=== PATIENT | female | born 1930 | race African-American/Black ===

== ENCOUNTER 2017-02-18 13:35 | Inpatient (IN) | payer MEDICARE ==
[~2017-02-18] VITALS: Ht 157.5 cm; Wt 88.9 kg
[~2017-02-18 13:35] MED LIST: ALPR.25 PO; AMLO5TAB96 PO; ASPI81 PO; CALTCHW4 PO; CENTTAB9 PO; CEPH500C3 PO; ESTR.3 PO; SYNT137T PO; TOPR100T15 PO; ZOFR4TAB3 SL
[2017-02-18 13:51] VITALS: BP 186/89; PULSE 104; RESP 18; TEMP 99.2; O2SAT 100
[2017-02-18] MEDS ORDERED: HALOPERIDOL LACTATE 5 MG/ML AMP IM ONE (14:00)
--- NOTE | 2017-02-18 14:10 | PD ---
HPI Chief Complaint: Altered Mental Status Time Seen by Provider: 13:40 Travel History International Travel<30 days: No Contact w/Intl Traveler<30days: No Traveled to known affect area: No History of Present Illness HPI This is an 86-year-old female with a history of hypertension, hypothyroidism, dementia, who presents here via EMS after her family members called stating that there are no longer able to control her. The patient has a history of dementia and it is progressing to the point now where she is out of control and they cannot take care of her. There are no other planes. The patient is unable to give any history as she is severely demented. PFSH Past Medical History Diminished Hearing: No Hypertension: Yes Musculoskeletal: Yes Thyroid Disease: Yes Menopausal: Yes Past Surgical History Cholecystectomy: Yes Hysterectomy: Yes Joint Replacement: Yes ([place]NE[place]) Social History Alcohol Use: No Tobacco Use: No Substance Use: No Allergies-Medications (Allergen,Severity, Reaction): Coded Allergies: acetaminophen (Unverified Allergy, Severe, 02/18/17) doxycycline (Unverified Allergy, Severe, 02/18/17) hydrocodone (Unverified Allergy, Severe, 02/18/17) minocycline (Unverified Allergy, Severe, 02/18/17) tigecycline (Unverified Allergy, Severe, 02/18/17) Reported Meds & Prescriptions Reported Meds & Active Scripts Active Zofran ODT (Ondansetron HCl) 4 Mg Tab 4 Mg SL Q6H PRN FOR NAUSEA/VOMITING Reported Xanax 0.25 Mg (Alprazolam) Alprazolam 0.25 mg Tab 1 Tab PO Q8 PRN Toprol XL (Metoprolol Succinate) 100 Mg [place] 1 Tab PO DAILY Keflex (Cephalexin Monohydrate) 500 Mg Cap 500 Mg PO Q8 Caltrate 600+D (Calcium Carbonate/Cholecalciferol) 600 Mg-800 Chw 1 Tab PO DAILY Norvasc (Amlodipine Besylate) 5 Mg Tab 10 Mg PO DAILY Centrum (Multivitamins) Tab 1 Tab PO DAILY Aspirin 81 Mg Tab 81 Mg PO DAILY Synthroid 137 mcg (Levothyroxine Sodium) 137 Mcg Tab 150 Mcg PO DAILY Premarin (Estrogens Conjugated) 0.3 Mg Tab 0.3 Mg PO DAILY Review of Systems ROS Limitations: Clinical Condition (history of dementia and unable to give any history of review of systems), Uncooperative, Poor Historian Except as stated in HPI: all other systems reviewed are Neg Physical Exam Narrative GENERAL: Well-developed well-nourished female in no acute rest her distress. SKIN: Focused skin assessment warm/dry. HEAD: Atraumatic. Normocephalic. EYES: No scleral icterus. No injection or drainage. ENT: No nasal bleeding or discharge. Mucous membranes pink and moist. NECK: Trachea midline. Supple. CARDIOVASCULAR: Regular rate and rhythm. No murmur appreciated. RESPIRATORY: No accessory muscle use. Clear to auscultation. Breath sounds equal bilaterally. GASTROINTESTINAL: Abdomen soft, non-tender, nondistended. MUSCULOSKELETAL: No obvious deformities. No clubbing. No cyanosis. No edema. NEUROLOGICAL: Awake and demented. No obvious cranial nerve deficits. Motor grossly within normal limits. Normal speech. Data Data Last Documented VS Vital Signs Date Time Temp Pulse Resp B/P (MAP) Pulse Ox O2 Delivery O2 Flow Rate FiO2 02/18/17 13:51 99.2 104 18 186/89 (121) 100 Room Air Orders Orders Comprehensive Metabolic Panel (02/18/17 13:56) Thyroid Stimulating Hormone (02/18/17 13:56) Urinalysis - C+S If Indicated (02/18/17 13:56) Oximetry (02/18/17 13:56) Iv Access Insert/Monitor (02/18/17 13:56) Ecg Monitoring (02/18/17 13:56) Psych Screen (02/18/17 13:56) Haloperidol Inj (Haldol Inj) (02/18/17 14:00) Lorazepam Inj (Ativan Inj) (02/18/17 14:45) Ziprasidone Inj (Geodon Inj) (02/18/17 14:47) Lorazepam Inj (Ativan Inj) (02/18/17 15:00) Ziprasidone Inj (Geodon Inj) (02/18/17 15:00) Admit Order (Ed Use Only) (02/18/17 15:50) [facility] Medical Decision Making Medical Screen Exam Complete: Yes Emergency Medical Condition: Yes Differential Diagnosis Worsening dementia versus metabolic arrangement versus UTI versus pneumonia Narrative Course This is an 86-year-old female sent in by her family via [facility] for evaluation for her worsening dementia. Patient is become increasingly agitated and unable to manage at home. Family is concerned that she may hurt herself. The patient is refusing labs at this time. She'll be put in [facility]. She is medically clear for psychiatry evaluation. Diagnosis Primary Impression: Alzheimer's dementia with behavioral disturbance Additional Impression: medically clear Pedro Lion MD Feb 18, 2017 14:10
[2017-02-18] MEDS ORDERED: LORazepam 2 MG/ML VIAL ONE (14:45)
[2017-02-18] MEDS ORDERED: ZIPRASIDONE MESYLATE 20 MG VIAL IM ONE ×2 (14:47→15:00)
[2017-02-18] MEDS ORDERED: LORazepam 2 MG/ML VIAL IM ONE (15:00)
[2017-02-18] MEDS ORDERED: ALUMINUM/MAGNESIUM/SIMETH 30 ML CUP PO PRN (16:00)
[2017-02-18] MEDS: ESTROGENS CONJUGATED 0.3 MG TAB PO SCH (16:00)
[2017-02-18] MEDS ORDERED: ACETAMINOPHEN 325 MG TAB PO PRN (16:00)
[2017-02-18] MEDS: ASPIRIN 81 MG CHEW TAB PO SCH (16:00)
[2017-02-18] MEDS ORDERED: TOPROL PO SCH (16:00)
[2017-02-18] MEDS ORDERED: MAGNESIUM HYDROXIDE SUSP 30 ML CUP PO PRN (16:00)
[2017-02-18] MEDS ORDERED: ONDANSETRON ODT 4 MG TAB SL PRN (16:00)
--- NOTE | 2017-02-18 16:10 | HHI.HP ---
Provisional Diagnosis Admission Date [place] I. Dementia with behavioral disturbance. Certification of Person's Competence To Provide Express and Informed Consent I have personally examined Natalie Rooney , a person being served at [facility] on, Feb 18, 2017 15:58. Express and informed consent means consent voluntarily given in writing, by a competent person, after sufficient explanation and disclosure of the subject matter involved to enable the person to make a knowing and willful decision without any element of force, fraud, deceit, duress, or other form of constraint or coercion. This person is 18 years of age or older, is not now known to be incompetent to consent to treatment with a guardian advocate, and does not have a health care surrogate or proxy currently making medical treatment decisions. I have found this person to be one of the following: [] Competent to provide express and informed consent, as defined above, for voluntary admission to this facility and is competent to provide express and informed consent for treatment. He/she has the consistent capacity to make well reasoned, willful, and knowing decisions concerning his or her medical or mental health treatment. The person fully and consistently understands the purpose of the admission for examination/placement and is fully capable of personally exercising all rights [place] [x] Incompetent to provide express and informed consent to voluntary admission, and this is incompetent to provide express and informed consent to treatment. The person must be transferred to involuntary status and a petition for a guardian advocate filed with the Circuit Court. [] Refusing to provide express and informed consent to voluntary admission but is competent to provide express and informed consent for treatment. The person must be discharged or transferred to involuntary status. Form shall be completed within 24 hours of a person's arrival at the receiving facility and filed in the clinical record of each person: 1. Admitted on a voluntary basis 2. Permitted to provide express and informed consent to his/her own treatment 3. Allowed to transfer from involuntary to voluntary status 4. Prior to permitting a person to consent to his or her own treatment after having been previously found incompetent to consent to treatment. History of Present Illness Capacity: Lacks Capacity HPI 86-year-old female with history of dementia, brought in by EMS after being called to family residence. Dr. Lion, he emergency department attending physician [place] acted the patient because she is obviously significantly demented, obviously unable to care for herself, oppositional and irritable to the point of fighting with family and medical staff. Patient remains a poor historian although she will speak to medical staff and this physician. She is clearly feeling persecuted by the medical staff at this hospital. She does not understand her need for evaluation and care and makes comments that both her family and our medical staff are trying to harm her in some way and take her money. She is noted to have a history of hypertension and hypothyroidism, yet declines the medicines used to treat both of these conditions, repeatedly stating she is "fine". At one point she became so highly agitated with the staff in [facility] pod psychiatry, she required injectable medicines of 10 mg Geodon and 1 mg Ativan. Patient was not physically cooperative and instead attempting to fight with our staff. As a result, she had to be held in order for these medicines to be given. This physician however did not order restraints as it was felt the patient could harm herself more if she were continuously restrained. She does make multiple nonsensical remarks and the information provided is not cogent, logical or explanatory. She is disoriented to place, time and situation. She does not feel that she needs to be away from home or that her is unable to care for her. At one point she states "he knocked me up" and at another 0.30 seconds later she states she had no biological children and they adopted their children. Review of Systems ROS Limitations: Clinical Condition Psychiatric: COMPLAINS OF: Anxiety, Confusion, Mood changes, Delusions Except as stated in HPI: all other systems reviewed are Neg Past Psych History Psychological trauma history No known psychiatric history. Dementia has been getting progressively worse over the last several years. Violence risk - others (6 mos) High Violence risk - self (6 mos) High through inability to care for self. Substance Abuse History Drugs/Alcohol past 12 months Denied Past Family Social History Coded Allergies: acetaminophen (Unverified Allergy, Severe, 02/18/17) doxycycline (Unverified Allergy, Severe, 02/18/17) hydrocodone (Unverified Allergy, Severe, 02/18/17) minocycline (Unverified Allergy, Severe, 02/18/17) tigecycline (Unverified Allergy, Severe, 02/18/17) Active Scripts Ondansetron (Zofran ODT) 4 Mg Tab, 4 MG SL Q6H Y for NAUSEA, #12 TAB FOR NAUSEA/VOMITING Prov:Henry Moura MD 07/06/13 Reported Medications Alprazolam (Xanax 0.25 Mg) Alprazolam 0.25 mg Tab, 1 TAB PO Q8 Y for ANXIETY, TAB 11/30/13 Toprol XL (Toprol XL) 100 Mg Lillian, 1 TAB PO DAILY, LILLIAN 11/30/13 Cephalexin (Keflex) 500 Mg Cap, 500 MG PO Q8, #30 CAP 11/30/13 Calcium Carbonate-Vitamin D (Caltrate 600+D) 600 Mg-800 Chw, 1 TAB PO DAILY 04/15/11 Amlodipine Besylate (Norvasc) 5 Mg Tab, 10 MG PO DAILY 01/22/10 Multiple Vitamins W/ Minerals (Centrum) Tab, 1 TAB PO DAILY, 0 Refills 01/22/10 Aspirin (Aspirin) 81 Mg Tab, 81 MG PO DAILY, 0 Refills 01/22/10 Synthroid 137 mcg (Synthroid 137 mcg) 137 Mcg Tab, 150 MCG PO DAILY, 0 Refills 01/22/10 Estrogens Conjugated (Premarin) 0.3 Mg Tab, 0.3 MG PO DAILY, 0 Refills 01/22/10 Current Medications Medications (Trade) Dose Ordered Sig/Mary Route Start Time Stop Time Status Last Admin (Ativan) 1 mg Q6H PRN PO 02/18/17 16:00 UNV (Ativan Inj) 1 mg Q6H PRN IM 02/18/17 16:00 UNV (Tylenol) 650 mg Q4H PRN PO 02/18/17 16:00 UNV (Milk Of Magnesia Liq) 30 ml DAILY PRN PO 02/18/17 16:00 UNV (Mag-Al Plus Susp Liq) 30 ml Q6H PRN PO 02/18/17 16:00 UNV Family Psych History Unknown. Patient poor historian. Social History Patient has been for many years and is aware of the name of her . However she vacillates between stating he and her son are persecuting her and that he will rescue her. According to the electronic medical record, he feels unable to care for her. She does not have a history of alcoholism or drug abuse. She has had several surgeries including the removal of her gallbladder, hysterectomy, and bilateral knee replacement. She does state that she had surgery yesterday, although it is plainly obvious she did not. In addition to her , she reportedly has a son who is supportive. She is not currently employed. Patient's Strengths (min. 2) Supportive family and has access to healthcare. Physical Exam GENERAL: SKIN: Warm and dry. HEAD: Normocephalic. EYES: No scleral icterus. No injection or drainage. NECK: Supple, trachea midline. No JVD or lymphadenopathy. CARDIOVASCULAR: Regular rate and rhythm without murmurs, gallops, or rubs. RESPIRATORY: Breath sounds equal bilaterally. No accessory muscle use. GASTROINTESTINAL: Abdomen soft, non-tender, nondistended. MUSCULOSKELETAL: No cyanosis, or edema. BACK: Nontender without obvious deformity. No CVA tenderness. Vital Signs Vital Signs Date Time Temp Pulse Resp B/P (MAP) Pulse Ox O2 Delivery O2 Flow Rate FiO2 02/18/17 13:51 99.2 104 18 186/89 (121) 100 Room Air Mental Status Examination Appearance: Appropriate, Disheveled Consciousness: Alert Orientation: Person Motor Activity: Abnormal gait Speech: Incoherent Language: Other Fund of Knowledge: Inadequate Attention and Concentration: Inadequate Memory: Impaired Mood: Oppositional, Irritable Affect: Labile Thought Process & Associations: Other Thought Content: Bizarre thinking, Delusional Hallucination Type: None Delusion Type: Paranoid Suicidal Ideation: No Suicidal Plan: No Suicidal Intention: No Homicidal Ideation: No Homicidal Plan: No Homicidal Intention: No Insight: Poor Judgment: Poor Assessment & Plan Problem List: (1) Alzheimer's dementia with behavioral disturbance ICD Codes: G30.9 - Alzheimer's disease, unspecified; F02.81 - Dementia in other diseases classified elsewhere with behavioral disturbance (2) Dementia in other diseases classified elsewhere with behavioral disturbance ICD Codes: F02.81 - Dementia in other diseases classified elsewhere with behavioral disturbance Assessment & Plan Estimated LOS: days. 86-year-old female with significant dementia, paranoid, aggressive towards others including her caretakers, unable to care for herself, with ongoing medical issues including hypothyroidism and hypertension. Patient was physically combative with staff in this emergency department. She presents a risk of great danger to herself as well as others, through action and self neglect. For these reasons she is being admitted for further evaluation and treatment. Patient is not competent and therefore this physician filled out multiple forms to have a guardian advocate appointed. CBC and comprehensive metabolic panel were ordered to determine if the patient has any infectious process or metabolic process which is causing or contributing to her confusion and agitation. Also ordered were thyroid-stimulating hormone level, vitamin B-12 vitamin D levels, in case deficiencies in these areas are causing or contributing to her confusion and behavioral disturbance. This physician also ordered an EKG to determine the patient's cardiac conduction status, which may be at risk due to her advanced age and multiple medications. Cardiac conduction can also be adversely affected by psychotropic medicines which have yet to be ordered, except for emergency treatment orders to prevent her harm or harm to others. This physician also ordered an occupational therapy consult to attempt to determine the patient's functionality. Finally, this physician spoke with the patient's nurse, Abdi regarding her recent behavior. Case management will also be involved to assist with further information gathering and disposition planning. Bj Lezama MD Feb 18, 2017 16:10
[2017-02-18] MEDS: LEVOTHYROXINE SODIUM 150 MCG TAB PO SCH (16:30)
[2017-02-18] MEDS ORDERED: CEPHALEXIN MONOHYDRATE 500 MG CAP PO SCH (18:00)
[2017-02-18 18:09] VITALS: BP 143/62; PULSE 78; RESP 16; TEMP 98.4; O2SAT 98
[2017-02-18 21:09] LABS: ALBUMIN 2.9 GM/DL (3.4-5.0); AST (GOT) 29 U/L (15-37); BICARBONATE 23.9 MEQ/L (21.0-32.0); BLOOD UREA NITROGEN 33 MG/DL (7-18); CALCIUM 9.1 MG/DL (8.5-10.1); CHLORIDE 108 MEQ/L (98-107); GLOMERULAR FILTRATION RATE 35 ML/MIN (>89); GLUCOSE,RANDOM 81 MG/DL (74-106); SODIUM (NA) 140 MEQ/L (136-145)
[2017-02-18 21:21] LABS: ALKALINE PHOSPHATASE 54 U/L (45-117); ALT (GPT) 17 U/L (10-53); TOTAL BILIRUBIN ADULT 0.2 MG/DL (0.2-1.0); TOTAL PROTEIN 7.1 GM/DL (6.4-8.2)
[2017-02-18] MEDS: LORazepam 1 MG TAB PO PRN (22:23)
[2017-02-19] VITALS (7 sets, daily range): BP systolic 146–199; BP diastolic 67–91; PULSE 56–71; RESP 12–18; TEMP 97.2–98.4; O2SAT 98–100
[2017-02-19] MEDS: LEVOTHYROXINE SODIUM 150 MCG TAB PO SCH (06:00)
[2017-02-19 08:15] LABS: BACTERIA, URINE RARE /hpf; BILIRUBIN, URINE NEG (NEG); BLOOD, URINE NEG (NEG); GLUCOSE,URINE NEG (NEG); KETONE, URINE NEG (NEG); MUCUS URINE FEW /lpf (OCC); NITRITE,URINE NEG (NEG); PH, URINE 7.5 (5.0-8.5); SQUAMOUS EPITHELIAL CELL URINE 3 /hpf (0-5); TRANSITIONAL EPI CELLS, URINE <1 /hpf; URINE COLOR LIGHT-YELLOW (YELLW/STRAW); URINE LEUKOCYTE ESTERASE LARGE (NEG); WHITE BLOOD CELL CLUMPS RARE
[2017-02-19] MEDS: ESTROGENS CONJUGATED 0.3 MG TAB PO SCH (08:30)
[2017-02-19] MEDS: MULTIVITAMINS/MINERALS THERAPEUTIC TAB PO SCH (08:31)
[2017-02-19] MEDS: CALCIUM/VITAMIN D 250 MG/125 U TAB PO SCH (08:31)
[2017-02-19] MEDS: ASPIRIN 81 MG CHEW TAB PO SCH (08:31)
--- NOTE | 2017-02-19 11:40 | HHI.PYPN ---
Subjective Remarks Patient is a 86-year-old after woman, , domiciled with family, with a past psychiatric history of dementia, past medical history significant for hypertension and hypothyroidism who was admitted to the inpatient psychiatry unit and the patient wrote brought in by EMS activated by family due to patient recent increase in agitation at home, along with paranoia of her family trying to harm her and take her money. Patient was found walking on the unit had apparent fall which patient was able to get up and walk back to her room. Imaging studies were ordered, patient denying any significant pain on her hip at this time, denied having hit her head on the floor. Patient was noted to be alert and oriented only to person, stated that her daughter had brought her to the hospital. Patient presented to be confused with events as well as difficulty with recent and immediate memory. Patient states that she has been going to "too many places", believes that she was traveling. Patient is unable to recall history regarding her family nor her medical or psychiatric history. Patient believes her is still alive. Patient at this time denies any SI or HI, any perceptual disturbances. Continue some paranoid delusions regarding her family. Review of Systems Except as stated in HPI: all other systems reviewed are Neg Mental Status Examination Appearance: Appropriate, Disheveled Consciousness: Alert Orientation: Person Motor Activity: Abnormal gait Speech: Incoherent Language: Other Fund of Knowledge: Inadequate Attention and Concentration: Inadequate Memory: Impaired Mood: Irritable Affect: Labile Thought Process & Associations: Other Thought Content: Bizarre thinking, Delusional Hallucination Type: None Delusion Type: Paranoid Suicidal Ideation: No Suicidal Plan: No Suicidal Intention: No Homicidal Ideation: No Homicidal Plan: No Homicidal Intention: No Insight: Poor Judgment: Poor Results Labs Labs reviewed Test 02/18/17 19:18 02/19/17 07:30 Blood Urea Nitrogen 33 MG/DL Creatinine 1.70 MG/DL Random Glucose 81 MG/DL Total Protein 7.1 GM/DL Albumin 2.9 GM/DL Calcium Level 9.1 MG/DL Alkaline Phosphatase 54 U/L Aspartate Amino Transf (AST/SGOT) 29 U/L Alanine Aminotransferase (ALT/SGPT) 17 U/L Total Bilirubin 0.2 MG/DL Sodium Level 140 MEQ/L Potassium Level 4.8 MEQ/L Chloride Level 108 MEQ/L Carbon Dioxide Level 23.9 MEQ/L Anion Gap 8 MEQ/L Estimat Glomerular Filtration Rate 35 ML/MIN Thyroid Stimulating Hormone 3rd Gen 2.460 uIU/ML Urine Color LIGHT-YELLOW Urine Turbidity HAZY Urine pH 7.5 Urine Specific [place] 1.012 Urine Protein NEG mg/dL Urine Glucose (UA) NEG mg/dL Urine Ketones NEG mg/dL Urine Occult Blood NEG Urine Nitrite NEG Urine Bilirubin NEG Urine Urobilinogen LESS THAN 2.0 MG/DL Urine Leukocyte Esterase LARGE Urine RBC 1 /hpf Urine WBC 17 /hpf Urine WBC Clumps RARE Urine Squamous Epithelial Cells 3 /hpf Urine Transitional Epithelial Cells <1 /hpf Urine Bacteria RARE /hpf Urine Mucus FEW /lpf Microscopic Urinalysis Comment CULTURE INDICATED Date/Time Source Procedure Growth Status 02/19/17 07:30 Urine Clean Catch Urine Culture Pending Received Vitals/IOs Vital Signs Date Time Temp Pulse Resp B/P (MAP) Pulse Ox O2 Delivery O2 Flow Rate FiO2 02/19/17 10:30 97.5 69 17 184/74 (110) 98 02/18/17 13:51 Room Air Intake and Output 02/19/17 02/19/17 02/20/17 08:00 16:00 00:00 Intake Total 240 ml Balance 240 ml Assessment & Plan Problem List: (1) Alzheimer's dementia with behavioral disturbance ICD Codes: G30.9 - Alzheimer's disease, unspecified; F02.81 - Dementia in other diseases classified elsewhere with behavioral disturbance (2) Dementia in other diseases classified elsewhere with behavioral disturbance ICD Codes: F02.81 - Dementia in other diseases classified elsewhere with behavioral disturbance Assessment & Plan Patient at this time continues to be noted to be confused, alert and oriented only to person. Will start quetiapine 12.5 mg by mouth twice a day. Continue recommendations from primary medical team. Collateral information pending from family. Discharge planning in progress Justification for Cont. Inpt. At risk for further decompensation if at lower level of care Discharge Planning Patient to be discharged to possible nursing facility if she cannot return home. Timbo Lombardi MD Feb 19, 2017 11:40
--- NOTE | 2017-02-19 14:01 | PD.CONS ---
HPI Service [facility] Consult Requested By Psychiatry team Reason for Consult Assist with medical management Primary Care Physician Unknown Diagnoses: History of Present Illness Patient is an 86-year-old female with primary medical history of dementia, hypothyroidism, HTN who came into the hospital after family called EMS stating that they could not control and able to take care of the patient. Patient seen and examined today sitting in the chair. Patient has been talking. Unable to hold intelligible conversations. Answers occasional questions. Very poor historian and able to give complete history. Patient is aware of the month stating it is January and that the year is almost over but unable to state what year it is. Does not know where she is at but states she is waiting for people to take her. Denies pain and discomfort. Denies SOB/ dyspnea. Denies chest pain. Denies fevers,n/v/d. Review of Systems ROS Limitations: Poor Historian Past Family Social History Allergies: Coded Allergies: acetaminophen (Unverified Allergy, Severe, 02/18/17) doxycycline (Unverified Allergy, Severe, 02/18/17) hydrocodone (Unverified Allergy, Severe, 02/18/17) minocycline (Unverified Allergy, Severe, 02/18/17) tigecycline (Unverified Allergy, Severe, 02/18/17) Past Medical History Per EMR review Hypothyroidism HTN Dementia Past Surgical History Per EMR review Cholecystectomy Hysterectomy Bilateral knee replacements Reported Medications Reported Meds & Active Scripts Active Zofran ODT (Ondansetron HCl) 4 Mg Tab 4 Mg SL Q6H PRN FOR NAUSEA/VOMITING Reported Xanax 0.25 Mg (Alprazolam) Alprazolam 0.25 mg Tab 1 Tab PO Q8 PRN Toprol XL (Metoprolol Succinate) 100 Mg Sierra 1 Tab PO DAILY Keflex (Cephalexin Monohydrate) 500 Mg Cap 500 Mg PO Q8 Caltrate 600+D (Calcium Carbonate/Cholecalciferol) 600 Mg-800 Chw 1 Tab PO DAILY Norvasc (Amlodipine Besylate) 5 Mg Tab 10 Mg PO DAILY Centrum (Multivitamins) Tab 1 Tab PO DAILY Aspirin 81 Mg Tab 81 Mg PO DAILY Synthroid 137 mcg (Levothyroxine Sodium) 137 Mcg Tab 150 Mcg PO DAILY Premarin (Estrogens Conjugated) 0.3 Mg Tab 0.3 Mg PO DAILY Active Ordered Medications Current Medications Medications (Trade) Dose Ordered Sig/Mary Route Start Time Stop Time Status Last Admin (Ativan) 1 mg Q6H PRN PO 02/18/17 16:00 02/18/17 22:23 (Ativan Inj) 1 mg Q6H PRN IM 02/18/17 16:00 (Milk Of Magnesia Liq) 30 ml DAILY PRN PO 02/18/17 16:00 (Mag-Al Plus Susp Liq) 30 ml Q6H PRN PO 02/18/17 16:00 (Norvasc) 10 mg DAILY PO 02/18/17 16:30 02/19/17 08:30 (Aspirin Chew) 81 mg DAILY PO 02/18/17 16:00 02/19/17 08:31 (Premarin) 0.3 mg DAILY PO 02/18/17 16:00 02/19/17 08:30 (Theragran M Tab) 1 tab DAILY PO 02/19/17 09:00 02/19/17 08:31 (Zofran Odt) 4 mg Q6H PRN SL 02/18/17 16:00 (Oscal-D 250-125) 500 mg DAILY PO 02/19/17 09:00 02/19/17 08:31 (Synthroid) 150 mcg DAILY@0600 PO 02/18/17 16:30 02/19/17 06:00 (SEROquel) 12.5 mg BID PO 02/19/17 21:00 (Pill Splitter) 1 ea UNSCH PRN OTHER 02/19/17 21:00 Family History Unable to obtain Social History States she drinks alcohol but unable to elaborate Denies tobacco use Denies illicit drug use Physical Exam Vital Signs Vital Signs Date Time Temp Pulse Resp B/P (MAP) Pulse Ox O2 Delivery O2 Flow Rate FiO2 02/19/17 12:33 97.8 70 17 166/91 (116) 98 02/19/17 10:30 97.5 69 17 184/74 (110) 98 02/19/17 09:30 56 18 174/74 (107) 100 02/19/17 05:58 97.6 59 17 170/81 (110) 100 02/18/17 18:09 98.4 78 16 143/62 (89) 98 02/18/17 16:56 02/18/17 13:51 99.2 104 18 186/89 (121) 100 Room Air Physical Exam GENERAL: This is a well-nourished, well-developed patient, in no apparent distress. SKIN: Warm and dry. HEAD: Atraumatic. Normocephalic. No temporal or scalp tenderness. EYES: Pupils equal round and reactive. Extraocular motions intact. No scleral icterus. No injection or drainage. ENT: Nose without bleeding. Throat without erythema. Uvula midline. Airway patent. NECK: Trachea midline. Supple. CARDIOVASCULAR: Regular rate and rhythm without murmurs, gallops, or rubs. RESPIRATORY: Clear to auscultation. Breath sounds equal bilaterally. No wheezes , rales, or rhonchi. GASTROINTESTINAL: Abdomen soft, non-tender, nondistended. Bowel sounds active 4. MUSCULOSKELETAL: Extremities without clubbing, cyanosis, or edema. NEUROLOGICAL: Awake and alert. Oriented to month, self. Normal speech. Laboratory Laboratory Tests Test 02/18/17 19:18 02/19/17 07:30 Blood Urea Nitrogen 33 Creatinine 1.70 Random Glucose 81 Total Protein 7.1 Albumin 2.9 Calcium Level 9.1 Alkaline Phosphatase 54 Aspartate Amino Transf (AST/SGOT) 29 Alanine Aminotransferase (ALT/SGPT) 17 Total Bilirubin 0.2 Sodium Level 140 Potassium Level 4.8 Chloride Level 108 Carbon Dioxide Level 23.9 Anion Gap 8 Estimat Glomerular Filtration Rate 35 Thyroid Stimulating Hormone 3rd Gen 2.460 Urine Color LIGHT-YELLOW Urine Turbidity HAZY Urine pH 7.5 Urine Specific [place] 1.012 Urine Protein NEG Urine Glucose (UA) NEG Urine Ketones NEG Urine Occult Blood NEG Urine Nitrite NEG Urine Bilirubin NEG Urine Urobilinogen LESS THAN 2.0 Urine Leukocyte Esterase LARGE Urine RBC 1 Urine WBC 17 Urine WBC Clumps RARE Urine Squamous Epithelial Cells 3 Urine Transitional Epithelial Cells <1 Urine Bacteria RARE Urine Mucus FEW Microscopic Urinalysis Comment CULTURE INDICATED Date/Time Source Procedure Growth Status 02/19/17 07:30 Urine Clean Catch Urine Culture Pending Received Result Diagram: 02/18/171917 Assessment and Plan Problem List: (1) Dementia in other diseases classified elsewhere with behavioral disturbance ICD Code: F02.81 - Dementia in other diseases classified elsewhere with behavioral disturbance (2) Alzheimer's dementia with behavioral disturbance ICD Code: G30.9 - Alzheimer's disease, unspecified; F02.81 - Dementia in other diseases classified elsewhere with behavioral disturbance Assessment and Plan Patient is an 86-year-old female with primary medical history of dementia, hypothyroidism, HTN who came into the hospital after family called EMS stating that they could not control and able to take care of the patient. Dementia with behavioral disturbance - Managed by psychiatry team Urinary tract infection - Cultures pending. Follow-up results - Will start patient on Bactrim DS HTN, uncontrolled - Continue home dose of amlodipine 10 mg daily, clonidine when necessary - Monitor BP trend Acute on chronic Kidney disease - Possibly related to hypertensive nephropathy - Encouraged by mouth fluid intake - Monitor renal indices Hypothyroidism - Continue home medication levothyroxine 150 g daily - TSH within normal DVT prop early ambulation Code Status Full code Discussed Condition With Discussed with patient, nursing Vernon De Luna Feb 19, 2017 14:01
[2017-02-19] MEDS: SULFAMETHOXAZOLE-TRIMETHOPRIM DS 800-160 MG TAB PO SCH ×3 (14:15→21:00)
--- NOTE | 2017-02-19 14:20 | EKG ---
Date Performed: 02/19/2017 Time Performed: 07:04:10 PTAGE: 86 years EKG: SINUS BRADYCARDIA LOW QRS VOLTAGE IN PRECORDIAL LEADS POSSIBLE ANTERIOR MYOCARDIAL INFARCTI ON , OF INDETERMINATE AGE ABNORMAL ECG PREVIOUS TRACING : 07/06/2013 11.54 DOCTOR: Avery Bravo Interpretating Date/Time 02/19/2017 14:18:58
[2017-02-19] MEDS: cloNIDine HCL 0.1 MG TAB PO PRN (17:26)
[2017-02-19] MEDS: LORazepam 1 MG TAB PO PRN (17:26)
[2017-02-19] MEDS: QUEtiapine FUMARATE 25 MG TAB PO SCH ×2 (20:17→21:00)
[2017-02-19] MEDS ORDERED: PILL SPLITTER OTHER PRN (21:00)
[2017-02-19] MEDS: LORazepam 2 MG/ML VIAL IM PRN (22:50)
[2017-02-19] MEDS ORDERED: OLANZapine IM 10 MG VIAL IM ONE ×2 (22:56→23:15)
[2017-02-20] MEDS: LORazepam 1 MG TAB PO PRN ×2 (02:17→22:57)
[2017-02-20] MEDS: LEVOTHYROXINE SODIUM 150 MCG TAB PO SCH (06:00)
[2017-02-20] MEDS: QUEtiapine FUMARATE 25 MG TAB PO SCH ×2 (08:22→21:00)
[2017-02-20] MEDS: SULFAMETHOXAZOLE-TRIMETHOPRIM DS 800-160 MG TAB PO SCH ×2 (08:22→21:00)
[2017-02-20] MEDS: MULTIVITAMINS/MINERALS THERAPEUTIC TAB PO SCH (08:22)
[2017-02-20] MEDS: ASPIRIN 81 MG CHEW TAB PO SCH (08:22)
[2017-02-20] MEDS: CALCIUM/VITAMIN D 250 MG/125 U TAB PO SCH (08:22)
[2017-02-20] MEDS: ESTROGENS CONJUGATED 0.3 MG TAB PO SCH (08:22)
[2017-02-20 12:35] LABS: AUTOMATED NEUTROPHIL # 3.8 TH/MM3 (1.8-7.7); BASOPHIL % 0.9 % (0.0-2.0); EOSINOPHIL # 0.1 TH/MM3 (0-0.4); EOSINOPHIL % 2.2 % (0.0-4.0); HEMATOCRIT 38.8 % (35.0-46.0); HEMOGLOBIN 12.5 GM/DL (11.6-15.3); LYMPH % 18.3 % (9.0-44.0); MEAN CORPUSCULAR HEMOGLOBIN 32.5 PG (27.0-34.0); MEAN CORPUSCULAR HGB CONC 32.2 % (32.0-36.0); MEAN PLATELET VOLUME 8.9 FL (7.0-11.0); MONO % 9.6 % (0.0-8.0); MONOCYTE # 0.5 TH/MM3 (0-0.9); PLATELET COUNT 286 TH/MM3 (150-450); RED BLOOD COUNT 3.84 MIL/MM3 (4.00-5.30); RED CELL DISTRIBUTION WIDTH 14.7 % (11.6-17.2); WHITE BLOOD COUNT 5.6 TH/MM3 (4.0-11.0)
[2017-02-20 12:39] LABS: CHOLESTEROL 181 MG/DL (120-200)
[2017-02-20 12:52] LABS: ALBUMIN 2.9 GM/DL (3.4-5.0); AST (GOT) 23 U/L (15-37); BICARBONATE 24.4 MEQ/L (21.0-32.0); BLOOD UREA NITROGEN 24 MG/DL (7-18); CALCIUM 9.3 MG/DL (8.5-10.1); CHLORIDE 108 MEQ/L (98-107); CREATININE 1.08 MG/DL (0.50-1.00); GLOMERULAR FILTRATION RATE 58 ML/MIN (>89); GLUCOSE,RANDOM 94 MG/DL (74-106); SODIUM (NA) 140 MEQ/L (136-145)
--- NOTE | 2017-02-20 12:58 | HHI.PR ---
Subjective Remarks Follow-up visit urinary tract infection, HTN, hypothyroidism, dementia. Patient seen and examined today lying in bed. Patient is been talking to herself mumbling words. Comprehensible. Does not follow any commands and ignores all the questions she continues to talk. Objective Vitals Vital Signs Date Time Temp Pulse Resp B/P (MAP) Pulse Ox O2 Delivery O2 Flow Rate FiO2 02/19/17 19:00 146/67 (93) 02/19/17 18:00 98.4 71 18 199/82 (121) 100 02/19/17 13:30 97.2 67 12 156/73 (100) 99 I/O 02/19/17 02/19/17 02/19/17 02/20/17 02/20/17 02/20/17 07:00 15:00 23:00 07:00 15:00 23:00 Intake Total 240 ml 1000 ml 120 ml Balance 240 ml 1000 ml 120 ml Intake Oral 240 ml 1000 ml 120 ml # Voids 1 2 2 # Bowel Movements 1 Result Diagram: 02/20/17 1150 02/20/17 1150 Objective Remarks GENERAL: This is a well-nourished, well-developed patient, in no apparent distress. SKIN: Warm and dry. HEAD: Atraumatic. Normocephalic. No temporal or scalp tenderness. EYES: Pupils equal round and reactive. Extraocular motions intact. No scleral icterus. No injection or drainage. ENT: Nose without bleeding. Throat without erythema. Uvula midline. Airway patent. NECK: Trachea midline. Supple. CARDIOVASCULAR: Regular rate and rhythm without murmurs, gallops, or rubs. RESPIRATORY: Clear to auscultation. Breath sounds equal bilaterally. No wheezes , rales, or rhonchi. GASTROINTESTINAL: Abdomen soft, non-tender, nondistended. Bowel sounds active 4. MUSCULOSKELETAL: Extremities without clubbing, cyanosis, or edema. NEUROLOGICAL: Awake and alert. Oriented to month, self. Normal speech. A/P Problem List: (1) Dementia in other diseases classified elsewhere with behavioral disturbance ICD Code: F02.81 - Dementia in other diseases classified elsewhere with behavioral disturbance (2) Alzheimer's dementia with behavioral disturbance ICD Code: G30.9 - Alzheimer's disease, unspecified; F02.81 - Dementia in other diseases classified elsewhere with behavioral disturbance Assessment and Plan Patient is an 86-year-old female with primary medical history of dementia, hypothyroidism, HTN who came into the hospital after family called EMS stating that they could not control and able to take care of the patient. Dementia with behavioral disturbance - Managed by psychiatry team - Patient was given doses of Geodon and Ativan for increased agitation especially in the afternoon and evening Urinary tract infection - Cultures showed 50-100,000 mixed gram-positive possible contaminants. However this could have contributed to patient's confusion - Continue with Bactrim DS HTN, uncontrolled - Continue amlodipine 10 mg daily, clonidine when necessary - Monitor BP trend Acute on chronic Kidney disease - Possibly related to hypertensive nephropathy - Encouraged by mouth fluid intake - Monitor renal indices. Improved creatinine. Hypothyroidism - Continue home medication levothyroxine 150 g daily - TSH within normal DVT prop early ambulation Discussed with patient, nursing Vernon De Luna Feb 20, 2017 12:58
[2017-02-20 13:06] LABS: ALKALINE PHOSPHATASE 58 U/L (45-117); ALT (GPT) 15 U/L (10-53); CHOLESTEROL/ HDL RATIO 1.83 RATIO; HDL CHOLESTEROL 98.4 MG/DL (40.0-60.0); LDL CHOLESTEROL 71 MG/DL (0-99); TOTAL BILIRUBIN ADULT 0.3 MG/DL (0.2-1.0); TOTAL PROTEIN 7.4 GM/DL (6.4-8.2); TRIGLYCERIDES 56 MG/DL (42-150)
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
--- NOTE | 2017-02-20 15:43 | PD.TTN ---
Patient Problems 1. Discharge planning 2. Medication compliance 3. Knowledge deficit 4. Lack of coping skills Progress Toward Goals Provider Present: Dr. Shiela Lombardi Provider Input: 02/20/2017 patient is refusing medication, she is encouraged with her mood and behavior and adjustments will be made to address as needed Nurse(s) Present: PRATIBHA Canales Nurse(s) Input: 02/20/2017; patient is difficult to redirect, she is encouraged and coached with most of her needs Psychiatric Counselors Present: GHANSHYAM Chirinos Psych Therapist Input: 02/20/2017; patient will return home when stable, counselor will continue communication with patient's family to ensure appropriate service is in place Group Spec/RT/OT/HENSLEY Present: Ac Carpenter OT Group Spec/RT/OT/HENSLEY Input: 02/20/2017; patient lacks insight and is therefore unable to participate with groups or activities Discharge Plan Patient will return home when stable with appropriate home service in place Documentation Scribe: GHANSHYAM Chirinos Sandra LMHC Feb 20, 2017 15:43
[2017-02-20 17:46] LABS: HEMOGLOBIN A1C 5.3 % (4.3-6.0)
[2017-02-20 18:15] VITALS: BP 159/69; PULSE 69; RESP 16; TEMP 97.8; O2SAT 99
[2017-02-20] MEDS: LORazepam 2 MG/ML VIAL IM PRN (23:24)
[2017-02-21] MEDS: LEVOTHYROXINE SODIUM 150 MCG TAB PO SCH (06:00)
[2017-02-21 06:04] LABS: HEMATOCRIT 36.1 % (35.0-46.0); HEMOGLOBIN 11.9 GM/DL (11.6-15.3); MEAN CELL VOLUME 98.4 FL (80.0-100.0); MEAN CORPUSCULAR HEMOGLOBIN 32.5 PG (27.0-34.0); MEAN PLATELET VOLUME 8.2 FL (7.0-11.0); PLATELET COUNT 286 TH/MM3 (150-450); RED BLOOD COUNT 3.67 MIL/MM3 (4.00-5.30); RED CELL DISTRIBUTION WIDTH 14.4 % (11.6-17.2); WHITE BLOOD COUNT 7.1 TH/MM3 (4.0-11.0)
[2017-02-21 06:12] LABS: BICARBONATE 24.8 MEQ/L (21.0-32.0); CALCIUM 9.6 MG/DL (8.5-10.1); CREATININE 1.04 MG/DL (0.50-1.00)
[2017-02-21 06:15] VITALS: BP 153/79; PULSE 70; RESP 20; TEMP 97.3; O2SAT 99
[2017-02-21] MEDS: CALCIUM/VITAMIN D 250 MG/125 U TAB PO SCH (09:37)
[2017-02-21] MEDS: MULTIVITAMINS/MINERALS THERAPEUTIC TAB PO SCH (09:38)
[2017-02-21] MEDS: SULFAMETHOXAZOLE-TRIMETHOPRIM DS 800-160 MG TAB PO SCH ×2 (09:40→22:06)
[2017-02-21] MEDS: QUEtiapine FUMARATE 25 MG TAB PO SCH ×2 (09:43→22:06)
[2017-02-21] MEDS: ESTROGENS CONJUGATED 0.3 MG TAB PO SCH (09:52)
[2017-02-21] MEDS: ASPIRIN 81 MG CHEW TAB PO SCH (09:52)
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
[2017-02-21] MEDS ORDERED: METOPROLOL SUCCINATE 25 MG EXTENDED RELEASE TAB PO SCH (14:30)
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
[2017-02-21] MEDS: cloNIDine HCL 0.1 MG TAB PO PRN (17:12)
[2017-02-21 17:56] VITALS: BP 148/70; PULSE 92; RESP 17; TEMP 97.5; O2SAT 98
[2017-02-21] MEDS: METOPROLOL TARTRATE 25 MG TAB PO SCH (22:06)
[2017-02-22 02:00] VITALS: BP 146/65; PULSE 66; RESP 20; TEMP 97.2; O2SAT 98
[2017-02-22] MEDS: LORazepam 2 MG/ML VIAL IM PRN ×2 (05:00→18:15)
[2017-02-22] MEDS: LEVOTHYROXINE SODIUM 150 MCG TAB PO SCH (06:00)
[2017-02-22] MEDS: MULTIVITAMINS/MINERALS THERAPEUTIC TAB PO SCH ×2 (08:24→09:00)
[2017-02-22] MEDS: ASPIRIN 81 MG CHEW TAB PO SCH ×2 (08:24→09:00)
[2017-02-22] MEDS: ESTROGENS CONJUGATED 0.3 MG TAB PO SCH ×2 (08:24→09:00)
[2017-02-22] MEDS: QUEtiapine FUMARATE 25 MG TAB PO SCH ×3 (08:24→21:00)
[2017-02-22] MEDS: CALCIUM/VITAMIN D 250 MG/125 U TAB PO SCH ×2 (08:24→09:00)
[2017-02-22] MEDS: METOPROLOL TARTRATE 25 MG TAB PO SCH ×3 (08:24→21:00)
[2017-02-22] MEDS: SULFAMETHOXAZOLE-TRIMETHOPRIM DS 800-160 MG TAB PO SCH ×3 (08:24→21:00)
[2017-02-22 08:30] VITALS: BP 159/94; PULSE 70; RESP 18; O2SAT 95
--- NOTE | 2017-02-22 13:32 | HHI.PR ---
Subjective Remarks Follow-up visit urinary tract infection, HTN, hypothyroidism, dementia. Patient seen and examined today lying in bed. Mumbling incomprehensible words. Confuse. As per staff, no acute issues except for confusion and intermittent agitation. Objective Vitals Vital Signs Date Time Temp Pulse Resp B/P (MAP) Pulse Ox O2 Delivery O2 Flow Rate FiO2 02/22/17 08:30 70 18 159/94 (115) 95 02/22/17 02:00 97.2 66 20 146/65 (92) 98 02/21/17 17:56 97.5 92 17 148/70 (96) 98 I/O 02/21/17 02/21/17 02/21/17 02/22/17 02/22/17 02/22/17 07:00 15:00 23:00 07:00 15:00 23:00 Intake Total 0 ml 240 ml 1200 ml 240 ml 240 ml Balance 0 ml 240 ml 1200 ml 240 ml 240 ml Intake Oral 0 ml 240 ml 1200 ml 240 ml 240 ml # Voids 2 0 2 # Bowel Movements 0 Result Diagram: 02/21/17 0430 02/21/17 0430 Objective Remarks GENERAL: This is a well-nourished, well-developed patient, in no apparent distress. SKIN: Warm and dry. HEAD: Normocephalic. EYES: Pupils equal round and reactive. No scleral icterus. No injection or drainage. ENT: Nose without bleeding. Throat without erythema. Uvula midline. Airway patent. NECK: Trachea midline. Supple. CARDIOVASCULAR: Regular rate and rhythm without murmurs, gallops, or rubs. RESPIRATORY: Breath sounds equal bilaterally. No wheezes, rales, or rhonchi. GASTROINTESTINAL: Abdomen soft, non-tender, nondistended. Bowel sounds active 4. MUSCULOSKELETAL: Extremities without clubbing, cyanosis, or edema. NEUROLOGICAL: Awake and alert. Oriented to self. Confuse. Easily agitated. Normal speech. A/P Problem List: (1) Dementia in other diseases classified elsewhere with behavioral disturbance ICD Code: F02.81 - Dementia in other diseases classified elsewhere with behavioral disturbance (2) Alzheimer's dementia with behavioral disturbance ICD Code: G30.9 - Alzheimer's disease, unspecified; F02.81 - Dementia in other diseases classified elsewhere with behavioral disturbance Assessment and Plan Patient is an 86-year-old female with primary medical history of dementia, hypothyroidism, HTN who came into the hospital after family called EMS stating that they could not control and able to take care of the patient. Dementia with behavioral disturbance - Managed by psychiatry team - Patient was given doses of Geodon and Ativan for increased agitation especially in the afternoon and evening Urinary tract infection - Cultures showed 50-100,000 mixed gram-positive possible contaminants. However this could have contributed to patient's confusion - Continue with Bactrim DS x7days. May complete at DC. Do not repeat UA if asymptomatic. HTN, uncontrolled - Continue amlodipine 10 mg daily, increase metoprolol 25 mg BID with parameters - clonidine when necessary - Monitor BP trend Acute on chronic Kidney disease - Possibly related to hypertensive nephropathy - Encouraged by mouth fluid intake - Monitor renal indices. Improved creatinine. Hypothyroidism - Continue home medication levothyroxine 150 g daily - TSH within normal DVT prop early ambulation Discussed with patient, nursing Vernon De Luna Feb 22, 2017 13:32
[2017-02-22 18:00] VITALS: BP 135/61; PULSE 68; RESP 17; TEMP 97.5; O2SAT 98
[2017-02-22] MEDS ORDERED: HALOPERIDOL LACTATE 5 MG/ML AMP IM ONE (18:30)
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
[2017-02-23 06:00] VITALS: BP 178/73; PULSE 77; RESP 18; O2SAT 98
[2017-02-23] MEDS: LEVOTHYROXINE SODIUM 150 MCG TAB PO SCH (06:00)
[2017-02-23] MEDS: ASPIRIN 81 MG CHEW TAB PO SCH (08:06)
[2017-02-23] MEDS: SULFAMETHOXAZOLE-TRIMETHOPRIM DS 800-160 MG TAB PO SCH ×2 (08:06→20:10)
[2017-02-23] MEDS: CALCIUM/VITAMIN D 250 MG/125 U TAB PO SCH (08:07)
[2017-02-23] MEDS: METOPROLOL TARTRATE 25 MG TAB PO SCH ×2 (08:07→20:10)
[2017-02-23] MEDS: ESTROGENS CONJUGATED 0.3 MG TAB PO SCH (08:07)
[2017-02-23] MEDS: MULTIVITAMINS/MINERALS THERAPEUTIC TAB PO SCH (08:07)
[2017-02-23] MEDS: QUEtiapine FUMARATE 25 MG TAB PO SCH ×2 (08:07→18:00)
[2017-02-23] MEDS: LORazepam 2 MG/ML VIAL IM PRN (10:23)
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
--- NOTE | 2017-02-23 13:57 | HHI.PR ---
Subjective Remarks not able to give proper hx denies most symptoms sitting in a recliner in dayroom with another patient and a sitter at the side due to confusion and high risk of falls Objective Vitals Vital Signs Date Time Temp Pulse Resp B/P (MAP) Pulse Ox O2 Delivery O2 Flow Rate FiO2 02/23/17 06:00 77 18 178/73 (108) 98 02/22/17 18:00 97.5 68 17 135/61 (85) 98 I/O 02/22/17 02/22/17 02/22/17 02/23/17 02/23/17 02/23/17 07:00 15:00 23:00 07:00 15:00 23:00 Intake Total 240 ml 480 ml 360 ml 0 ml 120 ml Balance 240 ml 480 ml 360 ml 0 ml 120 ml Intake Oral 240 ml 480 ml 360 ml 0 ml 120 ml # Voids 2 4 1 2 Result Diagram: 02/21/17 0430 02/21/17 0430 Objective Remarks GENERAL: This is elderly lady, sitting and sleeping on a recliner into a room with a sitter at the bedside. Looks quite confused. SKIN: Warm and dry. HEAD: Normocephalic. EYES: Pupils equal round and reactive. No scleral icterus. No injection or drainage. ENT: Nose without bleeding. Airway patent. NECK: Trachea midline. Supple. CARDIOVASCULAR: Regular rate and rhythm without murmurs, gallops, or rubs. RESPIRATORY: Breath sounds equal bilaterally. No wheezes, rales, or rhonchi. GASTROINTESTINAL: Abdomen soft, non-tender, nondistended. MUSCULOSKELETAL: Extremities without clubbing, cyanosis, or edema. NEUROLOGICAL: Mostly sleeping although easily awakens to verbal stimuli. Confused. Oriented to self. Per nursing, would get agitated easily. Normal speech. Medications and IVs A/P Problem List: (1) Dementia in other diseases classified elsewhere with behavioral disturbance ICD Code: F02.81 - Dementia in other diseases classified elsewhere with behavioral disturbance (2) Alzheimer's dementia with behavioral disturbance ICD Code: G30.9 - Alzheimer's disease, unspecified; F02.81 - Dementia in other diseases classified elsewhere with behavioral disturbance Assessment and Plan Impression/plan: Dementia with behavior disturbance. Management per psychiatry team. UTI. With mixed onofre. Was on Bactrim. Complete course for 7 days. No need to repeat UA if asymptomatic. HTN, uncontrolled Continue amlodipine 10 mg daily, increased metoprolol 25 mg BID with parameters yesterday. We'll continue to monitor. Orders written to measure blood pressure sitting up. Also to measure the blood pressure only one patient is calm. Acute on chronic Kidney disease Likely secondary to hypertensive nephropathy. Encourage by mouth intake. Hypothyroidism - Continue home medication levothyroxine 150 g daily - TSH within normal DVT prop early ambulation. PT consult. SCD. Discharge Planning per psychiatry team Mervin Wahl MD Feb 23, 2017 13:57
[2017-02-23 18:22] VITALS: BP 170/74; PULSE 78; RESP 18; TEMP 98.3; O2SAT 99
[2017-02-23] MEDS: LORazepam 1 MG TAB PO PRN (20:10)
[2017-02-24] MEDS: LEVOTHYROXINE SODIUM 150 MCG TAB PO SCH (06:00)
[2017-02-24 06:20] VITALS: BP 166/78; PULSE 83; RESP 16; TEMP 97.8; O2SAT 99
[2017-02-24] MEDS: ESTROGENS CONJUGATED 0.3 MG TAB PO SCH (10:01)
[2017-02-24] MEDS: METOPROLOL TARTRATE 25 MG TAB PO SCH ×2 (10:02→21:43)
[2017-02-24] MEDS: CALCIUM/VITAMIN D 250 MG/125 U TAB PO SCH (10:02)
[2017-02-24] MEDS: SULFAMETHOXAZOLE-TRIMETHOPRIM DS 800-160 MG TAB PO SCH ×2 (10:02→21:43)
[2017-02-24] MEDS: MULTIVITAMINS/MINERALS THERAPEUTIC TAB PO SCH (10:02)
[2017-02-24] MEDS: ASPIRIN 81 MG CHEW TAB PO SCH (10:03)
[2017-02-24] MEDS: QUEtiapine FUMARATE 25 MG TAB PO SCH ×3 (10:03→18:00)
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
--- NOTE | 2017-02-24 12:25 | HHI.PR ---
Subjective Remarks no complaints closing her eyes and answering questions slightly better than yesterday did not eat much of lunch which is at bedside had visitor this am from [facility] denies every symptoms again on ROS Objective Vitals Vital Signs Date Time Temp Pulse Resp B/P (MAP) Pulse Ox O2 Delivery O2 Flow Rate FiO2 02/24/17 06:20 97.8 83 16 166/78 (107) 99 02/23/17 18:22 98.3 78 18 170/74 (106) 99 I/O 02/23/17 02/23/17 02/23/17 02/24/17 02/24/17 02/24/17 07:00 15:00 23:00 07:00 15:00 23:00 Intake Total 0 ml 120 ml 120 ml 0 ml 240 ml Balance 0 ml 120 ml 120 ml 0 ml 240 ml Intake Oral 0 ml 120 ml 120 ml 0 ml 240 ml # Voids 2 0 1 Result Diagram: 02/21/17 04302/21/17 043 Objective Remarks GENERAL: This is elderly lady, sitting and sleeping in bed. Looks quite confused. did not eat much of her lunch SKIN: Warm and dry. HEAD: Normocephalic. EYES: Pupils equal round and reactive. No scleral icterus. No injection or drainage. ENT: Nose without bleeding. Airway patent. NECK: Trachea midline. Supple. CARDIOVASCULAR: Regular rate and rhythm without murmurs, gallops, or rubs. RESPIRATORY: Breath sounds equal bilaterally. No wheezes, rales, or rhonchi. GASTROINTESTINAL: Abdomen soft, non-tender, nondistended. MUSCULOSKELETAL: Extremities without clubbing, cyanosis, or edema. NEUROLOGICAL: Mostly sleeping although easily awakens to verbal stimuli. Confused. Oriented to self. Per nursing, would get agitated easily. Normal speech. A/P Problem List: (1) Dementia in other diseases classified elsewhere with behavioral disturbance ICD Code: F02.81 - Dementia in other diseases classified elsewhere with behavioral disturbance (2) Alzheimer's dementia with behavioral disturbance ICD Code: G30.9 - Alzheimer's disease, unspecified; F02.81 - Dementia in other diseases classified elsewhere with behavioral disturbance Assessment and Plan Impression/plan: Dementia with behavior disturbance. Management per psychiatry team. UTI. With mixed onofre. Was on Bactrim. Complete course for 7 days. No need to repeat UA if asymptomatic. HTN, uncontrolled Continue amlodipine 10 mg daily, increased metoprolol 25 mg BID with [id number]/30/17. We'll continue to monitor. Orders written to measure blood pressure sitting up. Also to measure the blood pressure only when patient is calm. Acute on chronic Kidney disease Likely secondary to hypertensive nephropathy. Encourage by mouth intake. Hypothyroidism - Continue home medication levothyroxine 150 g daily - TSH within normal DVT prop early ambulation. PT consult. SCD. Discharge Planning per psychiatry team Mervin Wahl MD Feb 24, 2017 12:25
[2017-02-24 18:00] VITALS: BP 156/71; PULSE 85; RESP 16; TEMP 97.3; O2SAT 95
[2017-02-24] MEDS: LORazepam 1 MG TAB PO PRN (21:43)
[2017-02-25] MEDS: LEVOTHYROXINE SODIUM 150 MCG TAB PO SCH (06:00)
[2017-02-25] MEDS: METOPROLOL TARTRATE 25 MG TAB PO SCH ×2 (09:00→21:00)
[2017-02-25] MEDS: SULFAMETHOXAZOLE-TRIMETHOPRIM DS 800-160 MG TAB PO SCH (09:00)
[2017-02-25] MEDS: CALCIUM/VITAMIN D 250 MG/125 U TAB PO SCH (09:00)
[2017-02-25] MEDS: QUEtiapine FUMARATE 25 MG TAB PO SCH ×3 (09:00→17:47)
[2017-02-25] MEDS: ESTROGENS CONJUGATED 0.3 MG TAB PO SCH (09:00)
[2017-02-25] MEDS: MULTIVITAMINS/MINERALS THERAPEUTIC TAB PO SCH (09:00)
[2017-02-25] MEDS: ASPIRIN 81 MG CHEW TAB PO SCH (09:00)
--- NOTE | 2017-02-25 10:30 | HHI.PYPN ---
Subjective Remarks Patient seen for follow-up, chart reviewed. Discussion she staff reported the patient adamantly refusing lab work this morning intermittently refusing medications as well as inpatient bed to be suspicious with staff and alert and oriented only to person. Patient was found lying in hospital bed noted to be guarded and slightly irritable with interview today. Patient alert and oriented only to person and place today with limited insight into why she is in the hospital. Patient also was encouraged to comply with treatment, but patient continues to state that she does not have any medical illness which she requires medications for Ronny examination of why she requires treatment at this time. Patient was noted to be somewhat paranoid with nursing staff and refusing assistance's morning. Review of Systems Except as stated in HPI: all other systems reviewed are Neg Mental Status Examination Appearance: Appropriate, Disheveled Consciousness: Alert (but sleepy) Orientation: Person Motor Activity: Abnormal gait Speech: Incoherent Language: Other Fund of Knowledge: Inadequate Attention and Concentration: Inadequate Memory: Impaired Mood: Irritable Affect: Irritable, Flat Thought Process & Associations: Other Thought Content: Preoccupations (focused on discharge), Delusional Hallucination Type: None Delusion Type: Paranoid Suicidal Ideation: No Suicidal Plan: No Suicidal Intention: No Homicidal Ideation: No Homicidal Plan: No Homicidal Intention: No Insight: Poor Judgment: Impulsive Results Labs Labs reviewed Date/Time Source Procedure Growth Status 02/19/17 07:30 Urine Clean Catch Urine Culture - Final 50-100,000 CFU/ML MIXED GRAM POSITIVE... Complete Vitals/IOs Vital Signs Date Time Temp Pulse Resp B/P (MAP) Pulse Ox O2 Delivery O2 Flow Rate FiO2 02/24/17 18:00 97.3 85 16 156/71 (99) 95 Assessment & Plan Problem List: (1) Alzheimer's dementia with behavioral disturbance ICD Codes: G30.9 - Alzheimer's disease, unspecified; F02.81 - Dementia in other diseases classified elsewhere with behavioral disturbance (2) Dementia in other diseases classified elsewhere with behavioral disturbance ICD Codes: F02.81 - Dementia in other diseases classified elsewhere with behavioral disturbance Assessment & Plan Patient at this time continues to be confused as well as disorganized at times with limited insight into her neurocognitive deficits and current medical issues (UTI, hypertension). Patient has been consistent with complaints of treatment continues with some paranoia with staff and noted with some irritability as well. Continue current treatment, continue to encourage patient to comply with current treatment. We'll have discussion with family in regards to having services present placed for patient when discharged home as patient currently with significant neurocognitive deficits that will require supervision and services Continue recommendations per primary medical team. Discharge planning in progress. Justification for Cont. Inpt. At risk for decompensation at lower level of care Discharge Planning Patient to be discharged back to her residence when medically and psychiatrically stable Timbo Lombardi MD Feb 25, 2017 10:30
--- NOTE | 2017-02-25 11:16 | HHI.PR ---
Subjective Remarks Patient was found sitting in front of nursing station having her meals. She is a lot more awake and alert today and is communicative. She however does not make much sense on specific questioning. She is able to follow simple commands. She denies any significant events overnight. But yet again, her review of system is still unreliable. Objective Vitals Vital Signs Date Time Temp Pulse Resp B/P (MAP) Pulse Ox O2 Delivery O2 Flow Rate FiO2 02/24/17 18:00 97.3 85 16 156/71 (99) 95 I/O 02/24/17 02/24/17 02/24/17 02/25/17 02/25/17 02/25/17 07:00 15:00 23:00 07:00 15:00 23:00 Intake Total 0 ml 300 ml 660 ml Balance 0 ml 300 ml 660 ml Intake Oral 0 ml 300 ml 660 ml # Voids 1 4 1 Result Diagram: 02/21/1742902/21/17429 Objective Remarks GENERAL: Awake, alert, sitting in chair by nursing station, eating lunch, able to answer questions though has dementia- follows commands during exam SKIN: Warm and dry. HEAD: Normocephalic. EYES: Pupils equal round and reactive. No scleral icterus. No injection or drainage. ENT: Nose without bleeding. Airway patent. NECK: Trachea midline. Supple. CARDIOVASCULAR: Regular rate and rhythm without gallops, or rubs. Systolic murmur at aortic area- was not noted previously as pt was always agitated and talking during exam, today she is much more awake and follows commands RESPIRATORY: Breath sounds equal bilaterally. No wheezes, rales, or rhonchi. GASTROINTESTINAL: Abdomen soft, non-tender, nondistended. MUSCULOSKELETAL: Extremities without clubbing, cyanosis, or edema. NEUROLOGICAL: Mostly sleeping although easily awakens to verbal stimuli. . Normal speech. A/P Problem List: (1) Dementia in other diseases classified elsewhere with behavioral disturbance ICD Code: F02.81 - Dementia in other diseases classified elsewhere with behavioral disturbance (2) Alzheimer's dementia with behavioral disturbance ICD Code: G30.9 - Alzheimer's disease, unspecified; F02.81 - Dementia in other diseases classified elsewhere with behavioral disturbance Assessment and Plan Impression/plan: Dementia with behavior disturbance. Management per psychiatry team. UTI. With mixed onofre. Was on Bactrim. however, pt takes it sometimes, does not at other times. Colonies are <100,000 and probably contaminant per culture results. thus discontinue bactrim. No need to repeat UA if asymptomatic. HTN, better controlled today Continue amlodipine 10 mg daily, increased metoprolol 25 mg BID with [id number]/30/17. Orders written to measure blood pressure sitting up. Also to measure the blood pressure only when patient is calm. Acute on chronic Kidney disease Likely secondary to hypertensive nephropathy. Encourage by mouth intake. Hypothyroidism - Continue home medication levothyroxine 150 g daily - TSH within normal Murmur on today's exam limited exam in previous days as pt is always confused and talking today is much more alert, follows commands likely aortic stenosis murmur will check Echo DVT prop early ambulation. PT consult. SCD. Discharge Planning per psychiatry team Mervin Wahl MD Feb 25, 2017 11:16
[2017-02-25] MEDS: LORazepam 2 MG/ML VIAL IM PRN (16:44)
[2017-02-25 18:00] VITALS: BP 129/64; PULSE 79; RESP 18; TEMP 98.7; O2SAT 99
[2017-02-26] MEDS: LEVOTHYROXINE SODIUM 150 MCG TAB PO SCH (05:37)
[2017-02-26 05:54] VITALS: BP_SYST 120; BP_SYST 159; BP_DIAS 65; BP_DIAS 67; PULSE 76; PULSE 81; RESP 16; RESP 18; TEMP 97.3; TEMP 97.9; O2SAT 97; O2SAT 98
[2017-02-26] MEDS: ASPIRIN 81 MG CHEW TAB PO SCH (08:08)
[2017-02-26] MEDS: CALCIUM/VITAMIN D 250 MG/125 U TAB PO SCH (08:08)
[2017-02-26] MEDS: METOPROLOL TARTRATE 25 MG TAB PO SCH (08:08)
[2017-02-26] MEDS: QUEtiapine FUMARATE 25 MG TAB PO SCH ×2 (08:08→12:04)
[2017-02-26] MEDS: MULTIVITAMINS/MINERALS THERAPEUTIC TAB PO SCH (08:08)
[2017-02-26] MEDS: ESTROGENS CONJUGATED 0.3 MG TAB PO SCH (08:08)
[2017-02-26] MEDS ORDERED: CALC250 PO (09:28)
[2017-02-26] MEDS ORDERED: ASPI81 PO (09:28)
[2017-02-26] MEDS ORDERED: METO25TA3 PO (09:28)
[2017-02-26] MEDS ORDERED: LEVO.15 PO (09:28)
[2017-02-26] MEDS ORDERED: ESTR.3 PO (09:28)
[2017-02-26] MEDS ORDERED: SERO25TA PO (09:28)
[2017-02-26] MEDS ORDERED: AMLO10 PO (09:28)
[2017-02-26] MEDS ORDERED: THERM PO (09:28)
[2017-02-26] MEDS: LORazepam 2 MG/ML VIAL IM PRN (11:49)
[2017-02-26] MEDS ORDERED: HALOPERIDOL LACTATE 5 MG/ML AMP ONE (11:58)
--- NOTE | 2017-02-26 12:39 | HHI.PR ---
Subjective Remarks was screaming loudly from her room while i was on the floor staff members run to her side and she was found sitting on the floor against a wall I was at the bedside she tells me she tried to get out of bed and walk and and slipped on the floor other that, extremely hard to get any info as pt denies everything, was screaming loud, and would not let anyone touch her she was placed back to bed by 2 person assist and was given sedation by psychiatry team about 20min after sedation, she is still somewhat agitated, does not want me to examine her, but nursing staff / contract post office clerk noted she had bruising on her right parietal area she is noted to be moving all 4 extremities without pain Objective Vitals Vital Signs Date Time Temp Pulse Resp B/P (MAP) Pulse Ox O2 Delivery O2 Flow Rate FiO2 02/26/17 05:54 97.9 76 18 159/67 (97) 98 02/25/17 18:00 98.7 79 18 129/64 (85) 99 I/O 02/25/17 02/25/17 02/25/17 02/26/17 02/26/17 02/26/17 07:00 15:00 23:00 07:00 15:00 23:00 Intake Total 480 ml 120 ml 0 ml 360 ml Balance 480 ml 120 ml 0 ml 360 ml Intake Oral 480 ml 120 ml 0 ml 360 ml # Voids 1 3 2 # Bowel Movements 1 Objective Remarks GENERAL: Awake, agitated, on floor sitting up from a fall. screaming SKIN: Warm and dry. HEAD: Normocephalic. EYES: Pupils equal round and reactive. No scleral icterus. No injection or drainage. ENT: Nose without bleeding. Airway patent. NECK: Trachea midline. Supple. CARDIOVASCULAR: Regular rate and rhythm without gallops, or rubs. Systolic murmur at aortic area RESPIRATORY: Breath sounds equal bilaterally. No wheezes, rales, or rhonchi. GASTROINTESTINAL: Abdomen soft, non-tender, nondistended. MUSCULOSKELETAL: Extremities without clubbing, cyanosis, or edema. NEUROLOGICAL: Mostly sleeping although easily awakens to verbal stimuli. . Normal speech. A/P Problem List: (1) Dementia in other diseases classified elsewhere with behavioral disturbance ICD Code: F02.81 - Dementia in other diseases classified elsewhere with behavioral disturbance (2) Alzheimer's dementia with behavioral disturbance ICD Code: G30.9 - Alzheimer's disease, unspecified; F02.81 - Dementia in other diseases classified elsewhere with behavioral disturbance Assessment and Plan Impression/plan: Dementia with behavior disturbance. Management per psychiatry team. fall today 02/26/17- examined pt at bedside, limited due to agitation, but seems to be all intact at baseline, on ASA 81mg , would obtain head ct UTI. With mixed onofre. Was on Bactrim. however, pt takes it sometimes, does not at other times. Colonies are <100,000 and probably contaminant per culture results. thus discontinue bactrim. No need to repeat UA if asymptomatic. HTN, better controlled today Continue amlodipine 10 mg daily, increased metoprolol 25 mg BID with [id number]/17. Orders written to measure blood pressure sitting up. Also to measure the blood pressure only when patient is calm. Acute on chronic Kidney disease Likely secondary to hypertensive nephropathy. Encourage by mouth intake. Hypothyroidism - Continue home medication levothyroxine 150 g daily - TSH within normal Murmur on exam limited exam in previous days as pt is always confused and talking likely aortic stenosis murmur echo can be done as outpatient since it was not done so far, and none urgent, and pt is agitated. follow up with pcp and do echo as outpatient DVT prop early ambulation. PT consult. SCD. Discharge Planning per psychiatry team Mervin Wahl MD Feb 26, 2017 12:39
--- NOTE | 2017-02-26 13:18 | RADRPT ---
EXAM DATE/TIME: 02/26/2017 12:43 [facility] COMPARISON: No previous studies available for comparison. INDICATIONS : Trauma, fall. RADIATION DOSE: 36.21 CTDIvol (mGy) MEDICAL HISTORY : Hypertension. SURGICAL HISTORY : Hysterectomy. Cholecystectomy. ENCOUNTER: Initial ACUITY: 1 day PAIN SCALE: 0/10 LOCATION: cranial TECHNIQUE: Multiple contiguous axial images were obtained of the head. Using automated exposure control and adj ustment of the mA and/or kV according to patient size, radiation dose was kept as low as reasonably a chievable to obtain optimal diagnostic quality images. DICOM format image data is available electro nically for review and comparison. FINDINGS: CEREBRUM: The ventricles are normal for age. No evidence of midline shift, mass lesion, hemorrhage or acute in farction. No extra-axial fluid collections are seen. POSTERIOR FOSSA: The cerebellum and brainstem are intact. The 4th ventricle is midline. The cerebellopontine angle i s unremarkable. EXTRACRANIAL: The visualized portion of the orbits is intact. SKULL: The calvaria is intact. No evidence of skull fracture. CONCLUSION: Negative for acute process. Shar Carrizales MD FACR on February 26, 2017 at 13:14 Board Certified Radiologist. This report was verified electronically.
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
== END 2017-02-26 13:40 | disposition home or self-care (01) | DRG 57 ==
LOC: NEPE 13:35 → NEDA 15:51 → H4EA 18:05
PROVIDERS: ADMIT Student in an Organized Health Care Education/Training Program; ATTEND Student in an Organized Health Care Education/Training Program
DX: G30.9 Alzheimer's disease, unspecified (principal); F02.81 Dementia in other diseases classified elsewhere, unspecified severity, with behavioral disturbance; I35.0 Nonrheumatic aortic (valve) stenosis; E03.9 Hypothyroidism, unspecified; I12.9 Hypertensive chronic kidney disease with stage 1 through stage 4 chronic kidney disease, or unspecified chronic kidney disease; N18.9 Chronic kidney disease, unspecified; R26.9 Unspecified abnormalities of gait and mobility; Z91.81 History of falling; Z96.653 Presence of artificial knee joint, bilateral
CPT/HCPCS: 70450; 80048; 80053; 80061; 81001; 82306; 82607; 83036; 84443; 85025; 85027; 87086; 93005; 96374; 96375; J1630; J2060; J3230; J3486

== ENCOUNTER 2017-03-31 12:09 | Inpatient (IN) | payer MEDICARE ==
[~2017-03-31 12:09] MED LIST changes: -ALPR.25 PO; +AMLO10 PO; -AMLO5TAB96 PO; +CALC250 PO; -CALTCHW4 PO; -CENTTAB9 PO; -CEPH500C3 PO; +LEVO.15 PO; +METO25TA3 PO; +SERO25TA PO; -SYNT137T PO; +THERM PO; -TOPR100T15 PO; -ZOFR4TAB3 SL
[2017-03-31 12:22] VITALS: BP 178/97; PULSE 66; RESP 17; TEMP 98.5; O2SAT 100
--- NOTE | 2017-03-31 13:06 | RADRPT ---
EXAM DATE/TIME: 03/31/2017 12:46 [facility] COMPARISON: CT BRAIN W/O CONTRAST, February 26, 2017, 12:43. INDICATIONS : Trauma, fall backwards onto head today. RADIATION DOSE: 56.35 CTDIvol (mGy) MEDICAL HISTORY : Dementia. Hypertension. diabetes SURGICAL HISTORY : Hysterectomy. ENCOUNTER: Initial ACUITY: 1 day PAIN SCALE: 5/10 LOCATION: Bilateral head TECHNIQUE: Multiple contiguous axial images were obtained of the head. Using automated exposure control and adj ustment of the mA and/or kV according to patient size, radiation dose was kept as low as reasonably a chievable to obtain optimal diagnostic quality images. DICOM format image data is available electro nically for review and comparison. FINDINGS: There is marked central and cortical atrophy with dilatation of ventricular and sulcal spaces. There is no parenchymal hemorrhage, acute infarction or mass lesion identified. There are no extra-a xial fluid collections appreciated. The posterior fossa is unremarkable with midline fourth ventricl e. The portion of the orbits and paranasal sinuses visualized are unremarkable. Small right occipital cephalhematoma without fracture CONCLUSION: Atrophy with mild/moderate periventricular white matter changes. Shar Carrziales MD FACR on March 31, 2017 at 13:04 Board Certified Radiologist. This report was verified electronically.
--- NOTE | 2017-03-31 13:29 | RADRPT ---
EXAM DATE/TIME: 03/31/2017 12:48 [facility] COMPARISON: No previous studies available for comparison. INDICATIONS : Trauma, fall backwards onto head today. RADIATION DOSE: 28.16 CTDIvol (mGy) MEDICAL HISTORY : Dementia. diabetes, hypertension SURGICAL HISTORY : None. ENCOUNTER: Initial ACUITY: 1 day PAIN SCALE: 5/10 LOCATION: Bilateral neck TECHNIQUE: Volumetric scanning of the cervical spine was performed. Multiplanar reconstructions in the sagittal, coronal and oblique axial planes were performed. Using automated exposure control and adjustment o f the mA and/or kV according to patient size, radiation dose was kept as low as reasonably achievable to obtain optimal diagnostic quality images. DICOM format image data is available electronically f or review and comparison. FINDINGS: There is no acute fracture or prevertebral soft tissue swelling. Grade I retrolisthesis of C5 in rela tion to C6 is noted. There is straightening of the normal cervical lordosis. Moderate bilateral pricilla inal narrowing is noted from C3 through T3. Diffuse cervical spondylosis is noted. The bony relations hip and alignment between C1 and C2 is well maintained. Scoliosis of the cervical spine is noted. CONCLUSION: 1. No acute fracture or prevertebral soft tissue swelling. 2. Grade I retrolisthesis of C5 in relation to C6. 3. Moderate bilateral foraminal narrowing from C3 through T3. 4. Straining of the normal cervical lordosis. 5. Diffuse cervical spondylosis. 6. Scoliosis of the cervical spine. Harry Zhu MD on March 31, 2017 at 13:23 Board Certified Radiologist. This report was verified electronically.
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
[2017-03-31] MEDS ORDERED: IBUPROFEN 200 MG TAB PO ONE (13:45)
[2017-03-31 14:32] LABS: AUTOMATED NEUTROPHIL # 5.5 TH/MM3 (1.8-7.7); BASOPHIL # 0.1 TH/MM3 (0-0.2); EOSINOPHIL % 0.3 % (0.0-4.0); HEMATOCRIT 35.5 % (35.0-46.0); HEMOGLOBIN 12.1 GM/DL (11.6-15.3); LYMPHOCYTE # 1.5 TH/MM3 (1.0-4.8); MEAN CELL VOLUME 99.7 FL (80.0-100.0); MEAN CORPUSCULAR HGB CONC 34.1 % (32.0-36.0); MEAN PLATELET VOLUME 8.1 FL (7.0-11.0); MONO % 8.2 % (0.0-8.0); MONOCYTE # 0.6 TH/MM3 (0-0.9); NEUT % 71.5 % (16.0-70.0); PLATELET COUNT 291 TH/MM3 (150-450); RED BLOOD COUNT 3.56 MIL/MM3 (4.00-5.30); RED CELL DISTRIBUTION WIDTH 16.7 % (11.6-17.2); WHITE BLOOD COUNT 7.7 TH/MM3 (4.0-11.0)
[2017-03-31 14:42] LABS: BILIRUBIN, URINE NEG (NEG); BLOOD, URINE NEG (NEG); GLUCOSE,URINE NEG (NEG); KETONE, URINE NEG (NEG); MUCUS URINE FEW /lpf (OCC); NITRITE,URINE NEG (NEG); PH, URINE 6.5 (5.0-8.5); SQUAMOUS EPITHELIAL CELL URINE 2 /hpf (0-5); URINE COLOR YELLOW (YELLW/STRAW); URINE LEUKOCYTE ESTERASE NEG (NEG)
[2017-03-31 14:51] LABS: ALKALINE PHOSPHATASE 65 U/L (45-117); TOTAL BILIRUBIN ADULT 0.5 MG/DL (0.2-1.0); TOTAL PROTEIN 8.6 GM/DL (6.4-8.2)
[2017-03-31 14:52] LABS: ALBUMIN 3.8 GM/DL (3.4-5.0); ALT (GPT) 21 U/L (10-53); AST (GOT) 49 U/L (15-37); BICARBONATE 25.2 MEQ/L (21.0-32.0); BLOOD UREA NITROGEN 31 MG/DL (7-18); CALCIUM 9.5 MG/DL (8.5-10.1); CHLORIDE 105 MEQ/L (98-107); CREATININE 1.64 MG/DL (0.50-1.00); GLOMERULAR FILTRATION RATE 36 ML/MIN (>89); GLUCOSE,RANDOM 85 MG/DL (74-106); SODIUM (NA) 137 MEQ/L (136-145)
[2017-03-31] MEDS ORDERED: SODIUM CHLOR 0.9% 1000 ML INJ 1,000 ML IV SCH (15:15)
[2017-03-31] MEDS ORDERED: QUEtiapine FUMARATE 25 MG TAB PO ONE (16:30)
[2017-03-31] MEDS ORDERED: HALOPERIDOL LACTATE 5 MG/ML AMP IV PUSH ONE (16:30)
[2017-03-31] MEDS ORDERED: QUEtiapine FUMARATE 100 MG TAB PO ONE (16:30)
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
[2017-03-31] MEDS ORDERED: LORazepam 2 MG/ML VIAL IV PUSH ONE (17:15)
[2017-03-31 20:00] VITALS: BP 217/93; PULSE 62; RESP 19; TEMP 98.4; O2SAT 95
[2017-03-31] MEDS ORDERED: MAGNESIUM HYDROXIDE SUSP 30 ML CUP PO PRN (20:00)
[2017-03-31] MEDS ORDERED: HALOPERIDOL LACTATE 5 MG/ML AMP IM PRN (20:00)
[2017-03-31] MEDS ORDERED: diphenhydrAMINE HCL 50 MG CAP PO PRN (20:00)
[2017-03-31] MEDS ORDERED: ALUMINUM/MAGNESIUM/SIMETH 30 ML CUP PO PRN (20:00)
[2017-03-31] MEDS ORDERED: LORazepam 2 MG/ML VIAL IM PRN (20:00)
[2017-03-31] MEDS ORDERED: LORazepam 0.5 MG TAB PO PRN (20:00)
[2017-03-31] MEDS: METOPROLOL TARTRATE 25 MG TAB PO SCH (20:28)
[2017-03-31 22:00] VITALS: BP 209/65; PULSE 61
[2017-03-31] MEDS ORDERED: cloNIDine HCL 0.1 MG TAB PO SCH (22:45)
[2017-04-01 02:42] VITALS: BP 173/86; PULSE 51
[2017-04-01 06:00] VITALS: BP_SYST 104; BP_SYST 132; BP_DIAS 61; BP_DIAS 82; PULSE 56; PULSE 82; RESP 16; RESP 18; TEMP 97.6; TEMP 98.2; O2SAT 100
[2017-04-01] MEDS: LEVOTHYROXINE SODIUM 150 MCG TAB PO SCH (06:39)
[2017-04-01] MEDS: CALCIUM/VITAMIN D 250 MG/125 U TAB PO SCH (08:47)
[2017-04-01] MEDS: ASPIRIN 81 MG CHEW TAB PO SCH (08:47)
[2017-04-01] MEDS: MULTIVITAMINS/MINERALS THERAPEUTIC TAB PO SCH (08:47)
[2017-04-01] MEDS: ESTROGENS CONJUGATED 0.3 MG TAB PO SCH (08:47)
[2017-04-01] MEDS: METOPROLOL TARTRATE 25 MG TAB PO SCH ×2 (08:49→20:53)
[2017-04-01] MEDS ORDERED: QUEtiapine FUMARATE 25 MG TAB PO SCH (09:00)
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
[2017-04-01 15:46] LABS: BICARBONATE 28.7 MEQ/L (21.0-32.0); BLOOD UREA NITROGEN 28 MG/DL (7-18); CALCIUM 9.3 MG/DL (8.5-10.1); CHLORIDE 104 MEQ/L (98-107); CREATININE 1.49 MG/DL (0.50-1.00); GLOMERULAR FILTRATION RATE 40 ML/MIN (>89); GLUCOSE,RANDOM 92 MG/DL (74-106); SODIUM (NA) 137 MEQ/L (136-145)
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
[2017-04-01 15:47] LABS: CHOLESTEROL 260 MG/DL (120-200)
[2017-04-01 15:50] LABS: CHOLESTEROL/ HDL RATIO 1.73 RATIO; HDL CHOLESTEROL 149.9 MG/DL (40.0-60.0); LDL CHOLESTEROL 101 MG/DL (0-99); TRIGLYCERIDES 45 MG/DL (42-150)
[2017-04-01 18:44] VITALS: BP 171/66; PULSE 63; RESP 14; TEMP 98.4; O2SAT 98
[2017-04-01 20:39] VITALS: BP 171/66; PULSE 63; RESP 14; TEMP 98.4; O2SAT 98
[2017-04-01 22:34] LABS: HEMOGLOBIN A1C 5.2 % (4.3-6.0)
[2017-04-02] MEDS ORDERED: HALOPERIDOL LACTATE 5 MG/ML AMP IM SCH ×2 (05:05→05:10)
[2017-04-02] MEDS ORDERED: diphenhydrAMINE HCL 50 MG/ML VIAL IM SCH ×2 (05:05→05:10)
[2017-04-02] MEDS ORDERED: diphenhydrAMINE HCL 50 MG/ML VIAL ONE (05:53)
[2017-04-02] MEDS ORDERED: HALOPERIDOL LACTATE 5 MG/ML AMP ONE (05:53)
[2017-04-02] MEDS: LEVOTHYROXINE SODIUM 150 MCG TAB PO SCH (06:00)
[2017-04-02 06:17] VITALS: BP 182/99; PULSE 75; RESP 18; TEMP 98.2; O2SAT 96
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
[2017-04-02] MEDS: MULTIVITAMINS/MINERALS THERAPEUTIC TAB PO SCH (09:00)
[2017-04-02] MEDS: CALCIUM/VITAMIN D 250 MG/125 U TAB PO SCH (09:00)
[2017-04-02] MEDS: ASPIRIN 81 MG CHEW TAB PO SCH (09:21)
[2017-04-02] MEDS: ESTROGENS CONJUGATED 0.3 MG TAB PO SCH (09:21)
[2017-04-02] MEDS: METOPROLOL TARTRATE 25 MG TAB PO SCH ×2 (09:21→20:33)
[2017-04-02] MEDS: NIFEdipine 30 MG SUSTAINED RELEASE TAB PO SCH (11:00)
[2017-04-02] MEDS ORDERED: cloNIDine HCL 0.1 MG TAB PO PRN (14:15)
--- NOTE | 2017-04-02 14:24 | HHI.PR ---
Subjective Remarks Follow up for dementia, hypertension. The patient has no specific medical complaints including no headache, lightheadedness, dizziness, chest pain, palpitations, shortness of breath, or abdominal complaints. BP still not controlled however RN reports intermittent agitation (likely contributing). No other acute issues reported. Objective Vitals Vital Signs Date Time Temp Pulse Resp B/P (MAP) Pulse Ox O2 Delivery O2 Flow Rate FiO2 04/02/17 06:17 98.2 75 18 182/99 (126) 96 04/01/17 20:39 98.4 63 14 171/66 (101) 98 04/01/17 18:44 98.4 63 14 171/66 (101) 98 I/O 04/01/17 04/01/17 04/01/17 04/02/17 04/02/17 04/02/17 07:00 15:00 23:00 07:00 15:00 23:00 Intake Total 240 ml 240 ml Balance 240 ml 240 ml Intake Oral 240 ml 240 ml # Voids 1 1 2 # Bowel Movements 0 Result Diagram: 03/31/17 1420 04/01/17 1455 Imaging Last Impressions Head CT 03/31/17 0000 Signed Impressions: Service Date/Time: Friday, March 31, 2017 12:46 - CONCLUSION: Atrophy with mild/moderate periventricular white matter changes. Shar Carrizales MD FACR Cervical Spine CT 03/31/17 0000 Signed Impressions: Service Date/Time: Friday, March 31, 2017 12:48 - CONCLUSION: 1. No acute fracture or prevertebral soft tissue swelling. 2. Grade I retrolisthesis of C5 in relation to C6. 3. Moderate bilateral foraminal narrowing from C3 through T3. 4. Straining of the normal cervical lordosis. 5. Diffuse cervical spondylosis. 6. Scoliosis of the cervical spine. Harry Zhu MD Objective Remarks GENERAL: Well-nourished, well-developed elderly female patient in NAD. Pleasantly confused. SKIN: Warm and dry. No rash. HEENT: Normocephalic. Atraumatic.Pupils equal and round. Mucous membranes pink and moist. NECK: Supple. Trachea midline. CARDIOVASCULAR: Regular rate and rhythm. S1, S2 noted. No murmur appreciated. RESPIRATORY: No accessory muscle use. Clear to auscultation. Breath sounds equal bilaterally. GASTROINTESTINAL: Abdomen soft, non-tender, nondistended. Normoactive bowel sounds x4. MUSCULOSKELETAL: No obvious deformities.Chronic bilateral lower extremity 2+ edema. NEUROLOGICAL: Awake and alert. No obvious cranial nerve deficits. Motor grossly within normal limits. Normal speech. PSYCHIATRIC: insight and judgment limited. Medications and IVs Current Medications Medications (Trade) Dose Ordered Sig/Mary Route Start Time Stop Time Status Last Admin (Aspirin Chew) 81 mg DAILY PO 04/01/17 09:00 04/02/17 09:21 (Oscal-D 250-125) 500 mg DAILY PO 04/01/17 09:00 04/01/17 08:47 (Premarin) 0.3 mg DAILY PO 04/01/17 09:00 04/02/17 09:21 (Synthroid) 150 mcg DAILY@0600 PO 04/01/17 06:00 04/01/17 06:39 (Lopressor) 25 mg Q12HR PO 03/31/17 21:00 04/02/17 09:21 (Theragran M Tab) 1 tab DAILY PO 04/01/17 09:00 04/02/17 09:00 (Benadryl) 50 mg HS PRN PO 03/31/17 20:00 Future Hold (Milk Of Magnesia Liq) 30 ml DAILY PRN PO 03/31/17 20:00 (Mag-Al Plus Susp Liq) 30 ml Q6H PRN PO 03/31/17 20:00 (Lipitor) 10 mg HS PO 04/02/17 21:00 (Procardia Xl) 30 mg DAILY PO 04/02/17 11:00 A/P Problem List: (1) Alzheimer's dementia with behavioral disturbance ICD Code: G30.9 - Alzheimer's disease, unspecified; F02.81 - Dementia in other diseases classified elsewhere with behavioral disturbance Assessment and Plan 86-year-old female with history of dementia, diabetes, hypertension, hypothyroidism, admitted to inpatient psychiatry for agitation and aggressive behavior at home. Dementia with Behavioral Disturbance/Aggressive Behavior: acute on chronic -continue management per psychiatry -continue patient's seroquel Accelerated Hypertension: acute on chronic, BP up to 217/93. Unclear if patient was taking medications -Continued patient's metoprolol 25mg bid and norvasc -BP still elevated, possibly combined with intermittent agitation, will change norvasc to procardia and titrate dosing as needed -clonidine prn Diabetes Mellitus: patient reports history of diabetes however HgbA1c 5.3 on . 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 Suspect secondary to dehydration -encourage oral intake -avoid nephrotoxins -repeat BMP shows mild improvement with Cr 1.49 -continue to monitor Hyperkalemia: K 5.2 however slightly hemolysis noted -repeat BMP shows improvement with K 4.0 -resolved Hypothyroidism: chronic -continue patient's synthroid -check TSH, free T4 Hyperlipidemia: Cholesterol 260, LDL 101 -will start on low dose lipitor 10mg hs -outpatient f/up of LFTs in 2 weeks and lipid panel in 3 months DVT Prophylaxis: ambulation Problem Qualifiers (1) Alzheimer's dementia with behavioral disturbance: Qualified Codes: G30.1 - Alzheimer's disease with late onset; F02.81 - Dementia in other diseases classified elsewhere with behavioral disturbance Dari Vasquez PA-C Apr 02, 2017 2:24 pm
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
--- NOTE | 2017-04-02 15:48 | PD.TTN ---
Patient Problems 1. Discharge planning 2. Medication compliance 3. Knowledge deficit 4. Lack of coping skills Progress Toward Goals Provider Present: Dr. Drew Mena Provider Input: 04/02/17 continue to monitor for improvement and behaviors while medicated and being somewhat new to the unit Psychiatric Counselors Present: Abbey Guevara LCSW Psych Therapist Input: 04/02/17 overall plesant and cooperative, not been able to reach family Group Spec/RT/OT/HENSLEY Present: AYDEN Adhikari Group Spec/RT/OT/HENSLEY Input: 04/02/17 has not attend groups even with encouragement complaints of tiredness Abbey Guevara LCSW Apr 02, 2017 15:48
[2017-04-02 17:08] VITALS: BP 165/70; PULSE 65; RESP 18; TEMP 97.8; O2SAT 99
[2017-04-02] MEDS: QUEtiapine FUMARATE 25 MG TAB PO SCH (20:00)
[2017-04-02] MEDS: ATORVASTATIN 10 MG TAB PO SCH (20:33)
[2017-04-03] MEDS: LEVOTHYROXINE SODIUM 150 MCG TAB PO SCH (05:03)
[2017-04-03] MEDS: MULTIVITAMINS/MINERALS THERAPEUTIC TAB PO SCH (09:00)
[2017-04-03] MEDS: CALCIUM/VITAMIN D 250 MG/125 U TAB PO SCH (09:00)
[2017-04-03] MEDS: ASPIRIN 81 MG CHEW TAB PO SCH (09:00)
[2017-04-03] MEDS: METOPROLOL TARTRATE 25 MG TAB PO SCH ×2 (09:00→20:49)
[2017-04-03] MEDS: ESTROGENS CONJUGATED 0.3 MG TAB PO SCH (09:00)
[2017-04-03] MEDS: NIFEdipine 30 MG SUSTAINED RELEASE TAB PO SCH (09:00)
--- NOTE | 2017-04-03 12:53 | HHI.PYPN ---
Subjective Chief Complaint: patient demented with increased aggression Remarks Patient seen in [place] with nurse Alix chart review, patient compliant medications., patient calm pleasant with me do mildly feisty continues diffusely confused. Though no behavior problems at this time Review of Systems Except as stated in HPI: all other systems reviewed are Neg Mental Status Examination Appearance: Appropriate Consciousness: Alert Orientation: Person (vaguely) Motor Activity: Other (some shuffling) Speech: Unremarkable Language: Adequate Fund of Knowledge: Poor Attention and Concentration: Easily Distracted Memory: Impaired Mood: Other (euthymic to somewhat restricted) Affect: Other (decreased range and intensity) Thought Process & Associations: Linear Thought Content: Other (disorganized) Hallucination Type: None (denies) Delusion Type: Paranoid (mildly) Suicidal Ideation: No Suicidal Plan: No Suicidal Intention: No Homicidal Ideation: No Homicidal Plan: No Homicidal Intention: No Insight: Poor Judgment: Poor Results Vitals/IOs Vital Signs Date Time Temp Pulse Resp B/P (MAP) Pulse Ox O2 Delivery O2 Flow Rate FiO2 04/02/17 17:08 97.8 65 18 165/70 (101) 99 03/31/17 13:00 Room Air Intake and Output 04/03/17 04/03/17 04/04/17 08:00 16:00 00:00 Intake Total 240 ml 120 ml Balance 240 ml 120 ml Assessment & Plan Problem List: (1) Dementia in other diseases classified elsewhere with behavioral disturbance ICD Codes: F02.81 - Dementia in other diseases classified elsewhere with behavioral disturbance (2) Alzheimer's dementia with behavioral disturbance ICD Codes: G30.9 - Alzheimer's disease, unspecified; F02.81 - Dementia in other diseases classified elsewhere with behavioral disturbance Assessment & Plan Estimated LOS: days patient continues confused and demented, compliant medications, no behavior problems at this time Justification for Cont. Inpt. At this time patient would decompensated placed in a lower level of care Discharge Planning Continue to work with family and placement issues Request HC Surrog/Guard Advoc?: Yes Problem Qualifiers (1) Alzheimer's dementia with behavioral disturbance: Qualified Codes: G30.1 - Alzheimer's disease with late onset; F02.81 - Dementia in other diseases classified elsewhere with behavioral disturbance Dino Mena MD Apr 03, 2017 12:53
[2017-04-03] MEDS: QUEtiapine FUMARATE 25 MG TAB PO SCH ×2 (13:29→20:49)
--- NOTE | 2017-04-03 15:11 | HHI.PR ---
Subjective Remarks Follow up for dementia, hypertension. Patient seen in her room reading the newspaper. She says she is looking for her in section [address] because he was admitted to the hospital. She is oriented to self only. RN reports she refused her medications this morning. Patient denies any medical complaints including no headache, blurred vision, chest pain, or shortness of breath. Objective Vitals Vital Signs Date Time Temp Pulse Resp B/P (MAP) Pulse Ox O2 Delivery O2 Flow Rate FiO2 04/02/17 17:08 97.8 65 18 165/70 (101) 99 I/O 04/02/17 04/02/17 04/02/17 04/03/17 04/03/17 04/03/17 07:00 15:00 23:00 07:00 15:00 23:00 Intake Total 600 ml 0 ml 240 ml 120 ml Balance 600 ml 0 ml 240 ml 120 ml Intake Oral 600 ml 0 ml 240 ml 120 ml # Voids 2 1 2 # Bowel Movements 0 Result Diagram: 03/31/17 1420 04/01/17 1455 Imaging Last Impressions Head CT 03/31/17 0000 Signed Impressions: Service Date/Time: Friday, March 31, 2017 12:46 - CONCLUSION: Atrophy with mild/moderate periventricular white matter changes. Shar Carrizales MD FACR Cervical Spine CT 03/31/17 0000 Signed Impressions: Service Date/Time: Friday, March 31, 2017 12:48 - CONCLUSION: 1. No acute fracture or prevertebral soft tissue swelling. 2. Grade I retrolisthesis of C5 in relation to C6. 3. Moderate bilateral foraminal narrowing from C3 through T3. 4. Straining of the normal cervical lordosis. 5. Diffuse cervical spondylosis. 6. Scoliosis of the cervical spine. Harry Zhu MD Objective Remarks GENERAL: Well-nourished, well-developed elderly female patient in NAD. Pleasantly confused. SKIN: Warm and dry. No rash. HEENT: Normocephalic. Atraumatic.Pupils equal and round. Mucous membranes pink and moist. CARDIOVASCULAR: Regular rate and rhythm. S1, S2 noted. No murmur appreciated. RESPIRATORY: No accessory muscle use. Clear to auscultation. Breath sounds equal bilaterally. GASTROINTESTINAL: Abdomen soft, non-tender, nondistended. Normoactive bowel sounds x4. MUSCULOSKELETAL: No obvious deformities.Chronic bilateral lower extremity 2+ edema. NEUROLOGICAL: Awake and alert. No obvious cranial nerve deficits. Motor grossly within normal limits. Normal speech. PSYCHIATRIC: insight and judgment limited. Medications and IVs Current Medications Medications (Trade) Dose Ordered Sig/Mary Route Start Time Stop Time Status Last Admin (Aspirin Chew) 81 mg DAILY PO 04/01/17 09:00 04/03/17 09:00 (Oscal-D 250-125) 500 mg DAILY PO 04/01/17 09:00 04/01/17 08:47 (Premarin) 0.3 mg DAILY PO 04/01/17 09:00 04/03/17 09:00 (Synthroid) 150 mcg DAILY@0600 PO 04/01/17 06:00 04/01/17 06:39 (Lopressor) 25 mg Q12HR PO 03/31/17 21:00 04/03/17 09:00 (Theragran M Tab) 1 tab DAILY PO 04/01/17 09:00 04/03/17 09:00 (Benadryl) 50 mg HS PRN PO 03/31/17 20:00 Future Hold (Milk Of Magnesia Liq) 30 ml DAILY PRN PO 03/31/17 20:00 (Mag-Al Plus Susp Liq) 30 ml Q6H PRN PO 03/31/17 20:00 (Lipitor) 10 mg HS PO 04/02/17 21:00 (Procardia Xl) 30 mg DAILY PO 04/02/17 11:00 04/03/17 09:00 (Catapres) 0.1 mg Q6H PRN PO 04/02/17 14:15 (SEROquel) 25 mg DAILY@1400,2000 PO 04/02/17 20:00 04/03/17 13:29 A/P Problem List: (1) Alzheimer's dementia with behavioral disturbance ICD Code: G30.9 - Alzheimer's disease, unspecified; F02.81 - Dementia in other diseases classified elsewhere with behavioral disturbance Assessment and Plan 86-year-old female with history of dementia, diabetes, hypertension, hypothyroidism, admitted to inpatient psychiatry for agitation and aggressive behavior at home. Dementia with Behavioral Disturbance/Aggressive Behavior: acute on chronic -continue management per psychiatry -continue patient's seroquel Accelerated Hypertension: acute on chronic, BP up to 217/93. Unclear if patient was taking medications -Continued patient's metoprolol 25mg bid and norvasc -BP still elevated, possibly combined with intermittent agitation, changes norvasc to procardia and titrate dosing as needed -clonidine prn -BP still not well controlled however patient intermittently refusing meds, continue to monitor Diabetes Mellitus: patient reports history of diabetes however HgbA1c 5.3 on . 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 Suspect secondary to dehydration -encourage oral intake -avoid nephrotoxins -repeat BMP shows mild improvement with Cr 1.49 -repeat BMP today pending Hyperkalemia: K 5.2 however slightly hemolysis noted -repeat BMP shows improvement with K 4.0 -resolved Hypothyroidism: chronic -continue patient's synthroid -check TSH, free T4 Hyperlipidemia: Cholesterol 260, LDL 101 -started on low dose lipitor 10mg hs -outpatient f/up of LFTs in 2 weeks and lipid panel in 3 months DVT Prophylaxis: ambulation Problem Qualifiers (1) Alzheimer's dementia with behavioral disturbance: Qualified Codes: G30.1 - Alzheimer's disease with late onset; F02.81 - Dementia in other diseases classified elsewhere with behavioral disturbance Dari Vasquez PA-C Apr 03, 2017 3:11 pm
[2017-04-03 17:50] VITALS: BP 147/74; PULSE 64; RESP 20; TEMP 97.5; O2SAT 100
[2017-04-03 20:15] VITALS: BP 158/86
[2017-04-03] MEDS: ATORVASTATIN 10 MG TAB PO SCH (20:49)
[2017-04-04 05:00] VITALS: BP 163/74; PULSE 57; RESP 17; TEMP 97.2; O2SAT 95
[2017-04-04] MEDS: LEVOTHYROXINE SODIUM 150 MCG TAB PO SCH (06:17)
[2017-04-04] MEDS: METOPROLOL TARTRATE 25 MG TAB PO SCH ×2 (08:49→21:23)
[2017-04-04] MEDS: ESTROGENS CONJUGATED 0.3 MG TAB PO SCH (08:49)
[2017-04-04] MEDS: MULTIVITAMINS/MINERALS THERAPEUTIC TAB PO SCH (08:49)
[2017-04-04] MEDS: ASPIRIN 81 MG CHEW TAB PO SCH (08:49)
[2017-04-04] MEDS: NIFEdipine 30 MG SUSTAINED RELEASE TAB PO SCH (08:49)
[2017-04-04] MEDS: CALCIUM/VITAMIN D 250 MG/125 U TAB PO SCH (08:49)
[2017-04-04 09:41] LABS: BICARBONATE 26.8 MEQ/L (21.0-32.0); BLOOD UREA NITROGEN 25 MG/DL (7-18); CALCIUM 9.2 MG/DL (8.5-10.1); CHLORIDE 105 MEQ/L (98-107); CREATININE 1.24 MG/DL (0.50-1.00); GLOMERULAR FILTRATION RATE 50 ML/MIN (>89); GLUCOSE,RANDOM 82 MG/DL (74-106); SODIUM (NA) 140 MEQ/L (136-145)
[2017-04-04 09:52] LABS: FREE T4 0.38 NG/DL (0.76-1.46)
--- NOTE | 2017-04-04 13:07 | HHI.PYPN ---
Subjective Chief Complaint: patient demented with increased aggression Remarks Patient seen in day room with nurse Jeff and medical student Jeramy, chart reviewed, patient compliant medications. Patient continues Mandi confused disoriented, demented, no behavior problems noted at this time. For now continue treatment Review of Systems Except as stated in HPI: all other systems reviewed are Neg Mental Status Examination Appearance: Appropriate Consciousness: Alert Orientation: Person (vaguely) Motor Activity: Other (some shuffling) Speech: Unremarkable Language: Adequate Fund of Knowledge: Poor Attention and Concentration: Easily Distracted Memory: Impaired Mood: Other (euthymic to somewhat restricted) Affect: Other (decreased range and intensity) Thought Process & Associations: Linear Thought Content: Other (disorganized) Hallucination Type: None (denies) Delusion Type: Paranoid (mildly) Suicidal Ideation: No Suicidal Plan: No Suicidal Intention: No Homicidal Ideation: No Homicidal Plan: No Homicidal Intention: No Insight: Poor Judgment: Poor Results Labs Test 04/04/17 07:51 Blood Urea Nitrogen 25 MG/DL Creatinine 1.24 MG/DL Random Glucose 82 MG/DL Calcium Level 9.2 MG/DL Sodium Level 140 MEQ/L Potassium Level 3.8 MEQ/L Chloride Level 105 MEQ/L Carbon Dioxide Level 26.8 MEQ/L Anion Gap 8 MEQ/L Estimat Glomerular Filtration Rate 50 ML/MIN Free Thyroxine 0.38 NG/DL Thyroid Stimulating Hormone 3rd Gen GREATER THAN 100.000 uIU/ML Vitals/IOs Vital Signs Date Time Temp Pulse Resp B/P (MAP) Pulse Ox O2 Delivery O2 Flow Rate FiO2 04/04/17 05:00 97.2 57 17 163/74 (103) 95 03/31/17 13:00 Room Air Intake and Output 04/04/17 04/04/17 04/05/17 08:00 16:00 00:00 Intake Total 0 ml 120 ml Balance 0 ml 120 ml Assessment & Plan Problem List: (1) Dementia in other diseases classified elsewhere with behavioral disturbance ICD Codes: F02.81 - Dementia in other diseases classified elsewhere with behavioral disturbance (2) Alzheimer's dementia with behavioral disturbance ICD Codes: G30.9 - Alzheimer's disease, unspecified; F02.81 - Dementia in other diseases classified elsewhere with behavioral disturbance Assessment & Plan Estimated LOS: days patient continues confused and demented, no behavior problems noted at this time, for now continue treatment Justification for Cont. Inpt. At this time patient will decompensate if place a lower level of care Discharge Planning Placement remains problematic Request HC Surrog/Guard Advoc?: Yes Problem Qualifiers (1) Alzheimer's dementia with behavioral disturbance: Qualified Codes: G30.1 - Alzheimer's disease with late onset; F02.81 - Dementia in other diseases classified elsewhere with behavioral disturbance Dino Mena MD Apr 04, 2017 13:07
[2017-04-04] MEDS: QUEtiapine FUMARATE 25 MG TAB PO SCH ×2 (14:00→21:23)
--- NOTE | 2017-04-04 14:21 | HHI.PR ---
Subjective Remarks Follow up for dementia, hypertension, severe hypothyroid. The patient is seen lying in bed, awake, alert, oriented to self only. She says she took her blood pressure pills this morning. She was encouraged to keep taking medications. She has no recollection of refusing medications the past few days. She denies any current headache, blurred vision, chest pain, palpitations, shortness of breath , or abdominal complaints. Discussed her abnormal thyroid function, patient unaware she is supposed to be on thyroid medication, therefore unlikely taking medication at home. Objective Vitals Vital Signs Date Time Temp Pulse Resp B/P (MAP) Pulse Ox O2 Delivery O2 Flow Rate FiO2 04/04/17 05:00 97.2 57 17 163/74 (103) 95 04/03/17 20:15 158/86 (110) 04/03/17 17:50 97.5 64 20 147/74 (98) 100 I/O 04/03/17 04/03/17 04/03/17 04/04/17 04/04/17 04/04/17 07:00 15:00 23:00 07:00 15:00 23:00 Intake Total 240 ml 120 ml 240 ml 120 ml Balance 240 ml 120 ml 240 ml 120 ml Intake Oral 240 ml 120 ml 240 ml 120 ml # Voids 2 2 Result Diagram: 03/31/17 1420 04/04/17 0751 Imaging Last Impressions Head CT 03/31/17 0000 Signed Impressions: Service Date/Time: Friday, March 31, 2017 12:46 - CONCLUSION: Atrophy with mild/moderate periventricular white matter changes. Shar Carrizales MD FACR Cervical Spine CT 03/31/17 0000 Signed Impressions: Service Date/Time: Friday, March 31, 2017 12:48 - CONCLUSION: 1. No acute fracture or prevertebral soft tissue swelling. 2. Grade I retrolisthesis of C5 in relation to C6. 3. Moderate bilateral foraminal narrowing from C3 through T3. 4. Straining of the normal cervical lordosis. 5. Diffuse cervical spondylosis. 6. Scoliosis of the cervical spine. Harry Zhu MD Objective Remarks GENERAL: Well-nourished, well-developed elderly female patient in NAD. Pleasantly confused. SKIN: Warm and dry. No rash. HEENT: Normocephalic. Atraumatic.Pupils equal and round. Mucous membranes pink and moist. CARDIOVASCULAR: Regular rate and rhythm. S1, S2 noted. No murmur appreciated. RESPIRATORY: No accessory muscle use. Clear to auscultation. Breath sounds equal bilaterally. GASTROINTESTINAL: Abdomen soft, non-tender, nondistended. Normoactive bowel sounds x4. MUSCULOSKELETAL: No obvious deformities.Chronic bilateral lower extremity 2+ edema. NEUROLOGICAL: Awake and alert, oriented to self only. No obvious cranial nerve deficits. Motor grossly within normal limits. Normal speech. PSYCHIATRIC: insight and judgment limited. Medications and IVs Current Medications Medications (Trade) Dose Ordered Sig/Mary Route Start Time Stop Time Status Last Admin (Aspirin Chew) 81 mg DAILY PO 04/01/17 09:00 04/04/17 08:49 (Oscal-D 250-125) 500 mg DAILY PO 04/01/17 09:00 04/04/17 08:49 (Premarin) 0.3 mg DAILY PO 04/01/17 09:00 04/04/17 08:49 (Synthroid) 150 mcg DAILY@0600 PO 04/01/17 06:00 04/04/17 06:17 (Lopressor) 25 mg Q12HR PO 03/31/17 21:00 04/04/17 08:49 (Theragran M Tab) 1 tab DAILY PO 04/01/17 09:00 04/04/17 08:49 (Benadryl) 50 mg HS PRN PO 03/31/17 20:00 Future Hold (Milk Of Magnesia Liq) 30 ml DAILY PRN PO 03/31/17 20:00 (Mag-Al Plus Susp Liq) 30 ml Q6H PRN PO 03/31/17 20:00 (Lipitor) 10 mg HS PO 04/02/17 21:00 04/03/17 20:49 (Procardia Xl) 30 mg DAILY PO 04/02/17 11:00 04/04/17 08:49 (Catapres) 0.1 mg Q6H PRN PO 04/02/17 14:15 (SEROquel) 25 mg DAILY@1400,2000 PO 04/02/17 20:00 04/03/17 20:49 A/P Problem List: (1) Alzheimer's dementia with behavioral disturbance ICD Code: G30.9 - Alzheimer's disease, unspecified; F02.81 - Dementia in other diseases classified elsewhere with behavioral disturbance Assessment and Plan 86-year-old female with history of dementia, diabetes, hypertension, hypothyroidism, admitted to inpatient psychiatry for agitation and aggressive behavior at home. Dementia with Behavioral Disturbance/Aggressive Behavior: acute on chronic -continue management per psychiatry -continue patient's seroquel Accelerated Hypertension: acute on chronic, BP up to 217/93. Unclear if patient was taking medications -Continued patient's metoprolol 25mg bid and norvasc however BP still elevated, possibly combined with intermittent agitation, changed norvasc to procardia -clonidine prn -patient refused meds past 2 days, did take meds today, will hold off on adjusting procardia dosing until patient taking medications consistently Diabetes Mellitus: patient reports history of diabetes however HgbA1c 5.3 on . 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 Suspect secondary to dehydration -encourage oral intake -avoid nephrotoxins -repeat BMP continues to show imrpovement with Cr 1.24 Hyperkalemia: K 5.2 however slightly hemolysis noted -repeat BMP shows improvement with K 4.0 -resolved Severe Hypothyroidism: acute on chronic -TSH significantly elevated at >100 and T4 low at 0.38 -no evidence of myxedema coma -suspect patient noncompliant with medications at home -continue synthroid 150mcg daily -repeat thyroid function in 2 weeks as outpatient Hyperlipidemia: Cholesterol 260, LDL 101 -started on low dose lipitor 10mg hs -outpatient f/up of LFTs in 2 weeks and lipid panel in 3 months DVT Prophylaxis: ambulation Problem Qualifiers (1) Alzheimer's dementia with behavioral disturbance: Qualified Codes: G30.1 - Alzheimer's disease with late onset; F02.81 - Dementia in other diseases classified elsewhere with behavioral disturbance Dari Vasquez PA-C Apr 04, 2017 2:21 pm
[2017-04-04 16:40] VITALS: BP 179/72; PULSE 67; RESP 17; TEMP 98.1; O2SAT 87
[2017-04-04] MEDS: ATORVASTATIN 10 MG TAB PO SCH (21:23)
[2017-04-04 23:20] VITALS: BP 163/69; PULSE 52
[2017-04-05] MEDS: LEVOTHYROXINE SODIUM 150 MCG TAB PO SCH (06:16)
[2017-04-05 06:37] VITALS: BP 147/67; PULSE 57; RESP 15; TEMP 97.8; O2SAT 96
[2017-04-05] MEDS: MULTIVITAMINS/MINERALS THERAPEUTIC TAB PO SCH (08:23)
[2017-04-05] MEDS: METOPROLOL TARTRATE 25 MG TAB PO SCH ×2 (08:23→22:05)
[2017-04-05] MEDS: CALCIUM/VITAMIN D 250 MG/125 U TAB PO SCH (08:23)
[2017-04-05] MEDS: NIFEdipine 30 MG SUSTAINED RELEASE TAB PO SCH (08:23)
[2017-04-05] MEDS: ASPIRIN 81 MG CHEW TAB PO SCH (08:23)
[2017-04-05] MEDS: ESTROGENS CONJUGATED 0.3 MG TAB PO SCH (08:23)
--- NOTE | 2017-04-05 12:05 | HHI.PR ---
Subjective Remarks Follow up fo hypertension. The patient is seen ambulating in the day room. She states she had a headache earlier today but now improved. Denies any current medical complaints including no chest pain, palpitations, or shortness of breath. She is upset that nobody can find her . She is oriented to self only. Objective Vitals Vital Signs Date Time Temp Pulse Resp B/P (MAP) Pulse Ox O2 Delivery O2 Flow Rate FiO2 04/05/17 06:37 97.8 57 15 147/67 (93) 96 04/04/17 23:20 52 163/69 (100) 04/04/17 16:40 98.1 67 17 179/72 (107) 87 I/O 04/04/17 04/04/17 04/04/17 04/05/17 04/05/17 04/05/17 07:00 15:00 23:00 07:00 15:00 23:00 Intake Total 240 ml 120 ml 1200 ml 0 ml 0 ml Balance 240 ml 120 ml 1200 ml 0 ml 0 ml Intake Oral 240 ml 120 ml 1200 ml 0 ml 0 ml # Voids 2 1 1 Result Diagram: 04/04/17 0751 Imaging Last Impressions Head CT 03/31/17 0000 Signed Impressions: Service Date/Time: Friday, March 31, 2017 12:46 - CONCLUSION: Atrophy with mild/moderate periventricular white matter changes. Shar Carrizales MD FACR Cervical Spine CT 03/31/17 0000 Signed Impressions: Service Date/Time: Friday, March 31, 2017 12:48 - CONCLUSION: 1. No acute fracture or prevertebral soft tissue swelling. 2. Grade I retrolisthesis of C5 in relation to C6. 3. Moderate bilateral foraminal narrowing from C3 through T3. 4. Straining of the normal cervical lordosis. 5. Diffuse cervical spondylosis. 6. Scoliosis of the cervical spine. Harry Zhu MD Objective Remarks GENERAL: Well-nourished, well-developed elderly female patient in NAD. Pleasantly confused. SKIN: Warm and dry. No rash. HEENT: Normocephalic. Atraumatic.Pupils equal and round. Mucous membranes pink and moist. CARDIOVASCULAR: Regular rate and rhythm. S1, S2 noted. No murmur appreciated. RESPIRATORY: No accessory muscle use. Clear to auscultation. Breath sounds equal bilaterally. GASTROINTESTINAL: Abdomen soft, non-tender, nondistended. Normoactive bowel sounds x4. MUSCULOSKELETAL: No obvious deformities.Chronic bilateral lower extremity 2+ edema. NEUROLOGICAL: Awake and alert, oriented to self only. No obvious cranial nerve deficits. Motor grossly within normal limits. Normal speech. PSYCHIATRIC: insight and judgment limited. Medications and IVs Current Medications Medications (Trade) Dose Ordered Sig/Mary Route Start Time Stop Time Status Last Admin (Aspirin Chew) 81 mg DAILY PO 04/01/17 09:00 04/05/17 08:23 (Oscal-D 250-125) 500 mg DAILY PO 04/01/17 09:00 04/04/17 08:49 (Premarin) 0.3 mg DAILY PO 04/01/17 09:00 04/05/17 08:23 (Synthroid) 150 mcg DAILY@0600 PO 04/01/17 06:00 04/05/17 06:16 (Lopressor) 25 mg Q12HR PO 03/31/17 21:00 04/05/17 08:23 (Theragran M Tab) 1 tab DAILY PO 04/01/17 09:00 04/05/17 08:23 (Benadryl) 50 mg HS PRN PO 03/31/17 20:00 Future Hold (Milk Of Magnesia Liq) 30 ml DAILY PRN PO 03/31/17 20:00 (Mag-Al Plus Susp Liq) 30 ml Q6H PRN PO 03/31/17 20:00 (Lipitor) 10 mg HS PO 04/02/17 21:00 04/04/17 21:23 (Procardia Xl) 30 mg DAILY PO 04/02/17 11:00 04/05/17 08:23 (Catapres) 0.1 mg Q6H PRN PO 04/02/17 14:15 (SEROquel) 25 mg DAILY@1400,2000 PO 04/02/17 20:00 04/04/17 21:23 A/P Problem List: (1) Alzheimer's dementia with behavioral disturbance ICD Code: G30.9 - Alzheimer's disease, unspecified; F02.81 - Dementia in other diseases classified elsewhere with behavioral disturbance Assessment and Plan 86-year-old female with history of dementia, diabetes, hypertension, hypothyroidism, admitted to inpatient psychiatry for agitation and aggressive behavior at home. Dementia with Behavioral Disturbance/Aggressive Behavior: acute on chronic -continue management per psychiatry -continue patient's seroquel Accelerated Hypertension: acute on chronic, BP up to 217/93. Unclear if patient was taking medications -Continued patient's metoprolol 25mg bid and norvasc however BP still elevated, possibly combined with intermittent agitation, changed norvasc to procardia -clonidine prn -2/10- BP still not well controlled despite taking meds, will increase procardia to 60mg daily Diabetes Mellitus: patient reports history of diabetes however HgbA1c 5.3 on . 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 Suspect secondary to dehydration -encourage oral intake -avoid nephrotoxins -repeat BMP continues to show improvement with Cr 1.24 Hyperkalemia: K 5.2 however slightly hemolysis noted -repeat BMP shows improvement with K 4.0 -resolved Severe Hypothyroidism: acute on chronic -TSH significantly elevated at >100 and T4 low at 0.38 -no evidence of myxedema coma -suspect patient noncompliant with medications at home -continue synthroid 150mcg daily -repeat thyroid function in 2 weeks as outpatient Hyperlipidemia: Cholesterol 260, LDL 101 -started on low dose lipitor 10mg hs -outpatient f/up of LFTs in 2 weeks and lipid panel in 3 months DVT Prophylaxis: ambulation Problem Qualifiers (1) Alzheimer's dementia with behavioral disturbance: Qualified Codes: G30.1 - Alzheimer's disease with late onset; F02.81 - Dementia in other diseases classified elsewhere with behavioral disturbance Dari Vasquez PA-C Apr 05, 2017 12:04 pm
[2017-04-05] MEDS: QUEtiapine FUMARATE 25 MG TAB PO SCH ×2 (14:00→22:05)
--- NOTE | 2017-04-05 14:13 | HHI.PYPN ---
Subjective Chief Complaint: patient demented with increased aggression Remarks Pt seen and discussed with staff. She remains confused and perseverates on 's whereabouts. She has been compliant with medications. She has a hx of aggression but has been calm today. Staff report that she is more oriented today and more cooperative. Mental Status Examination Appearance: Appropriate Consciousness: Alert Orientation: Person (vaguely) Motor Activity: Other (some shuffling) Speech: Unremarkable Language: Adequate Fund of Knowledge: Poor Attention and Concentration: Easily Distracted Memory: Impaired Mood: Other (euthymic to somewhat restricted) Affect: Other (decreased range and intensity) Thought Process & Associations: Linear Thought Content: Other (disorganized) Hallucination Type: None (denies) Delusion Type: Paranoid Suicidal Ideation: No Suicidal Plan: No Suicidal Intention: No Homicidal Ideation: No Homicidal Plan: No Homicidal Intention: No Insight: Poor Judgment: Poor Results Vitals/IOs Vital Signs Date Time Temp Pulse Resp B/P (MAP) Pulse Ox O2 Delivery O2 Flow Rate FiO2 04/05/17 06:37 97.8 57 15 147/67 (93) 96 Intake and Output 04/05/17 04/05/17 04/06/17 08:00 16:00 00:00 Intake Total 0 ml Balance 0 ml Assessment & Plan Problem List: (1) Dementia in other diseases classified elsewhere with behavioral disturbance ICD Codes: F02.81 - Dementia in other diseases classified elsewhere with behavioral disturbance (2) Alzheimer's dementia with behavioral disturbance ICD Codes: G30.9 - Alzheimer's disease, unspecified; F02.81 - Dementia in other diseases classified elsewhere with behavioral disturbance Assessment & Plan Continue current tx plan. Estimated LOS: days Justification for Cont. Inpt. risk of decompensation Request HC Surrog/Guard Advoc?: Yes Problem Qualifiers (1) Alzheimer's dementia with behavioral disturbance: Qualified Codes: G30.1 - Alzheimer's disease with late onset; F02.81 - Dementia in other diseases classified elsewhere with behavioral disturbance Ludivina Nichols MD Apr 05, 2017 14:12
[2017-04-05 18:20] VITALS: BP 120/63; PULSE 70; RESP 18; TEMP 97.1; O2SAT 100
[2017-04-05] MEDS: ATORVASTATIN 10 MG TAB PO SCH (22:05)
[2017-04-06 06:24] VITALS: BP 161/82; PULSE 62; RESP 16; TEMP 97.7; O2SAT 94
[2017-04-06] MEDS: LEVOTHYROXINE SODIUM 150 MCG TAB PO SCH (06:25)
[2017-04-06] MEDS: ASPIRIN 81 MG CHEW TAB PO SCH (08:47)
[2017-04-06] MEDS: CALCIUM/VITAMIN D 250 MG/125 U TAB PO SCH (08:47)
[2017-04-06] MEDS: ESTROGENS CONJUGATED 0.3 MG TAB PO SCH (08:47)
[2017-04-06] MEDS: MULTIVITAMINS/MINERALS THERAPEUTIC TAB PO SCH (08:47)
[2017-04-06] MEDS: METOPROLOL TARTRATE 25 MG TAB PO SCH ×2 (08:47→20:58)
[2017-04-06] MEDS: NIFEdipine 60 MG SUSTAINED RELEASE TAB PO SCH (08:47)
[2017-04-06] MEDS: QUEtiapine FUMARATE 25 MG TAB PO SCH ×2 (14:00→20:58)
[2017-04-06] MEDS ORDERED: HALOPERIDOL LACTATE 5 MG/ML AMP ONE (14:26)
[2017-04-06] MEDS ORDERED: diphenhydrAMINE HCL 50 MG/ML VIAL ONE (14:27)
--- NOTE | 2017-04-06 14:43 | HHI.PYPN ---
Subjective Chief Complaint: patient demented with increased aggression Remarks Pt seen and discussed with staff. She was suspicious and paranoid about medications but was compliant with staff encouragement. She became agitated this afternoon on the unit and required ETO to maintain safety. She is now calm Mental Status Examination Appearance: Appropriate Consciousness: Alert Orientation: Person (vaguely) Motor Activity: Other (some shuffling) Speech: Unremarkable Language: Adequate Fund of Knowledge: Poor Attention and Concentration: Easily Distracted Memory: Impaired Mood: Other (euthymic to somewhat restricted) Affect: Other (decreased range and intensity) Thought Process & Associations: Linear Thought Content: Other (disorganized) Hallucination Type: None (denies) Delusion Type: Paranoid Suicidal Ideation: No Suicidal Plan: No Suicidal Intention: No Homicidal Ideation: No Homicidal Plan: No Homicidal Intention: No Insight: Poor Judgment: Poor Results Vitals/IOs Vital Signs Date Time Temp Pulse Resp B/P (MAP) Pulse Ox O2 Delivery O2 Flow Rate FiO2 04/06/17 06:24 97.7 62 16 161/82 (108) 94 Intake and Output 04/06/17 04/06/17 04/07/17 08:00 16:00 00:00 Intake Total 0 ml Balance 0 ml Assessment & Plan Problem List: (1) Dementia in other diseases classified elsewhere with behavioral disturbance ICD Codes: F02.81 - Dementia in other diseases classified elsewhere with behavioral disturbance (2) Alzheimer's dementia with behavioral disturbance ICD Codes: G30.9 - Alzheimer's disease, unspecified; F02.81 - Dementia in other diseases classified elsewhere with behavioral disturbance Assessment & Plan Continue current tx plan. Estimated LOS: days Justification for Cont. Inpt. agitation Request HC Surrog/Guard Advoc?: Yes Problem Qualifiers (1) Alzheimer's dementia with behavioral disturbance: Qualified Codes: G30.1 - Alzheimer's disease with late onset; F02.81 - Dementia in other diseases classified elsewhere with behavioral disturbance Ludivina Nichols MD Apr 06, 2017 14:43
[2017-04-06] MEDS ORDERED: diphenhydrAMINE HCL 50 MG/ML VIAL IM ONE (14:45)
[2017-04-06] MEDS ORDERED: HALOPERIDOL LACTATE 5 MG/ML AMP IM ONE (14:45)
--- NOTE | 2017-04-06 15:53 | HHI.PR ---
Subjective Remarks Follow up for hypertension. The patient is seen sitting in the day room. She has no specific medical complaints today. She states she is eating well. Vital signs reviewed. Blood pressure improving, intermittently elevated likely correlates with patient's intermittent agitation. Objective Vitals Vital Signs Date Time Temp Pulse Resp B/P (MAP) Pulse Ox O2 Delivery O2 Flow Rate FiO2 04/06/17 06:24 97.7 62 16 161/82 (108) 94 04/05/17 18:20 97.1 70 18 120/63 (82) 100 I/O 04/05/17 04/05/17 04/05/17 04/06/17 04/06/17 04/06/17 07:00 15:00 23:00 07:00 15:00 23:00 Intake Total 0 ml 0 ml 600 ml 0 ml Balance 0 ml 0 ml 600 ml 0 ml Intake Oral 0 ml 0 ml 600 ml 0 ml # Voids 1 1 2 Result Diagram: 04/04/17 0751 Imaging Last Impressions Head CT 03/31/17 0000 Signed Impressions: Service Date/Time: Friday, March 31, 2017 12:46 - CONCLUSION: Atrophy with mild/moderate periventricular white matter changes. Shar Carrizales MD FACR Cervical Spine CT 03/31/17 0000 Signed Impressions: Service Date/Time: Friday, March 31, 2017 12:48 - CONCLUSION: 1. No acute fracture or prevertebral soft tissue swelling. 2. Grade I retrolisthesis of C5 in relation to C6. 3. Moderate bilateral foraminal narrowing from C3 through T3. 4. Straining of the normal cervical lordosis. 5. Diffuse cervical spondylosis. 6. Scoliosis of the cervical spine. Harry Zhu MD Objective Remarks GENERAL: Well-nourished, well-developed elderly female patient in NAD. Pleasantly confused. SKIN: Warm and dry. HEENT: Normocephalic. Atraumatic.Pupils equal and round. Mucous membranes pink and moist. CARDIOVASCULAR: Regular rate and rhythm. S1, S2 noted. No murmur appreciated. RESPIRATORY: No accessory muscle use. Clear to auscultation. Breath sounds equal bilaterally. GASTROINTESTINAL: Abdomen soft, non-tender, nondistended. Normoactive bowel sounds x4. MUSCULOSKELETAL: No obvious deformities.Chronic bilateral lower extremity 2+ edema. NEUROLOGICAL: Awake and alert, oriented to self only. Moving all extremities spontaneously. Normal speech. PSYCHIATRIC: insight and judgment limited. Medications and IVs Current Medications Medications (Trade) Dose Ordered Sig/Mary Route Start Time Stop Time Status Last Admin (Aspirin Chew) 81 mg DAILY PO 04/01/17 09:00 04/06/17 08:47 (Oscal-D 250-125) 500 mg DAILY PO 04/01/17 09:00 04/06/17 08:47 (Premarin) 0.3 mg DAILY PO 04/01/17 09:00 04/06/17 08:47 (Synthroid) 150 mcg DAILY@0600 PO 04/01/17 06:00 04/06/17 06:25 (Lopressor) 25 mg Q12HR PO 03/31/17 21:00 04/06/17 08:47 (Theragran M Tab) 1 tab DAILY PO 04/01/17 09:00 04/06/17 08:47 (Benadryl) 50 mg HS PRN PO 03/31/17 20:00 Future Hold (Milk Of Magnesia Liq) 30 ml DAILY PRN PO 03/31/17 20:00 (Mag-Al Plus Susp Liq) 30 ml Q6H PRN PO 03/31/17 20:00 (Lipitor) 10 mg HS PO 04/02/17 21:00 04/05/17 22:05 (Catapres) 0.1 mg Q6H PRN PO 04/02/17 14:15 (SEROquel) 25 mg DAILY@1400,2000 PO 04/02/17 20:00 04/05/17 22:05 (Procardia Xl) 60 mg DAILY PO 04/06/17 09:00 04/06/17 08:47 A/P Problem List: (1) Alzheimer's dementia with behavioral disturbance ICD Code: G30.9 - Alzheimer's disease, unspecified; F02.81 - Dementia in other diseases classified elsewhere with behavioral disturbance Assessment and Plan 86-year-old female with history of dementia, diabetes, hypertension, hypothyroidism, admitted to inpatient psychiatry for agitation and aggressive behavior at home. Dementia with Behavioral Disturbance/Aggressive Behavior: acute on chronic -continue management per psychiatry -continue patient's seroquel Accelerated Hypertension: acute on chronic, BP up to 217/93. Unclear if patient was taking medications -Continued patient's metoprolol 25mg bid and norvasc however BP still elevated, possibly combined with intermittent agitation, changed norvasc to procardia -clonidine prn -04/05 procardia increased to 60mg daily -04/06 BP seems better controlled, intermittently elevated likely secondary to intermittent agitation Diabetes Mellitus: patient reports history of diabetes however HgbA1c 5.3 on . 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 Suspect secondary to dehydration -encourage oral intake -avoid nephrotoxins -repeat BMP continues to show improvement with Cr 1.24 Hyperkalemia: K 5.2 however slightly hemolysis noted -repeat BMP shows improvement with K 4.0 -resolved Severe Hypothyroidism: acute on chronic -TSH significantly elevated at >100 and T4 low at 0.38 -no evidence of myxedema coma -suspect patient noncompliant with medications at home -continue synthroid 150mcg daily -repeat thyroid function in 2 weeks on 04/18 as outpatient (or if still in hospital) Hyperlipidemia: Cholesterol 260, LDL 101 -started on low dose lipitor 10mg hs -outpatient f/up of LFTs in 2 weeks and lipid panel in 3 months DVT Prophylaxis: ambulation Problem Qualifiers (1) Alzheimer's dementia with behavioral disturbance: Qualified Codes: G30.1 - Alzheimer's disease with late onset; F02.81 - Dementia in other diseases classified elsewhere with behavioral disturbance Dari Vasquez PA-C Apr 06, 2017 3:53 pm
[2017-04-06 18:00] VITALS: BP 137/73; PULSE 82; RESP 16; TEMP 97.3
[2017-04-06] MEDS: ATORVASTATIN 10 MG TAB PO SCH (20:59)
[2017-04-07 05:34] VITALS: BP 132/61; PULSE 65; RESP 17; TEMP 98.1; O2SAT 98
[2017-04-07] MEDS: LEVOTHYROXINE SODIUM 150 MCG TAB PO SCH (06:09)
[2017-04-07] MEDS: ESTROGENS CONJUGATED 0.3 MG TAB PO SCH (08:43)
[2017-04-07] MEDS: CALCIUM/VITAMIN D 250 MG/125 U TAB PO SCH (08:43)
[2017-04-07] MEDS: METOPROLOL TARTRATE 25 MG TAB PO SCH ×2 (08:43→21:38)
[2017-04-07] MEDS: ASPIRIN 81 MG CHEW TAB PO SCH (08:43)
[2017-04-07] MEDS: MULTIVITAMINS/MINERALS THERAPEUTIC TAB PO SCH (08:43)
[2017-04-07] MEDS: NIFEdipine 60 MG SUSTAINED RELEASE TAB PO SCH (08:43)
--- NOTE | 2017-04-07 13:48 | HHI.PR ---
Subjective Remarks Follow up for hypertension. The patient is seen sitting in her room. She reports feeling well today. Denies any headache, chest pain, or shortness of breath. She is tolerating oral intake. Oriented to self, not place or date. Vital signs reviewed. BP improved. Objective Vitals Vital Signs Date Time Temp Pulse Resp B/P (MAP) Pulse Ox O2 Delivery O2 Flow Rate FiO2 04/07/17 05:34 98.1 65 17 132/61 (84) 98 04/06/17 18:00 97.3 82 16 137/73 (94) I/O 04/06/17 04/06/17 04/06/17 04/07/17 04/07/17 04/07/17 07:00 15:00 23:00 07:00 15:00 23:00 Intake Total 0 ml 720 ml 0 ml 600 ml Balance 0 ml 720 ml 0 ml 600 ml Intake Oral 0 ml 720 ml 0 ml 600 ml # Voids 2 4 Result Diagram: 04/04/17 0751 Imaging Last Impressions Head CT 03/31/17 0000 Signed Impressions: Service Date/Time: Friday, March 31, 2017 12:46 - CONCLUSION: Atrophy with mild/moderate periventricular white matter changes. Shar Carrizaels MD FACR Cervical Spine CT 03/31/17 0000 Signed Impressions: Service Date/Time: Friday, March 31, 2017 12:48 - CONCLUSION: 1. No acute fracture or prevertebral soft tissue swelling. 2. Grade I retrolisthesis of C5 in relation to C6. 3. Moderate bilateral foraminal narrowing from C3 through T3. 4. Straining of the normal cervical lordosis. 5. Diffuse cervical spondylosis. 6. Scoliosis of the cervical spine. Harry Zhu MD Objective Remarks GENERAL: Well-nourished, well-developed elderly female patient in [facility]. Pleasantly confused. SKIN: Warm and dry. HEENT: Normocephalic. Atraumatic.Pupils equal and round. Mucous membranes pink and moist. CARDIOVASCULAR: Regular rate and rhythm. S1, S2 noted. No murmur appreciated. RESPIRATORY: No accessory muscle use. Clear to auscultation. Breath sounds equal bilaterally. GASTROINTESTINAL: Abdomen soft, non-tender, nondistended. Normoactive bowel sounds x4. MUSCULOSKELETAL: No obvious deformities.Chronic bilateral lower extremity 2+ edema. NEUROLOGICAL: Awake and alert, oriented to self only. Moving all extremities spontaneously. Normal speech. PSYCHIATRIC: insight and judgment limited. Medications and IVs Current Medications Medications (Trade) Dose Ordered Sig/Mary Route Start Time Stop Time Status Last Admin (Aspirin Chew) 81 mg DAILY PO 04/01/17 09:00 04/07/17 08:43 (Oscal-D 250-125) 500 mg DAILY PO 04/01/17 09:00 04/07/17 08:43 (Premarin) 0.3 mg DAILY PO 04/01/17 09:00 04/07/17 08:43 (Synthroid) 150 mcg DAILY@0600 PO 04/01/17 06:00 04/07/17 06:09 (Lopressor) 25 mg Q12HR PO 03/31/17 21:00 04/07/17 08:43 (Theragran M Tab) 1 tab DAILY PO 04/01/17 09:00 04/07/17 08:43 (Benadryl) 50 mg HS PRN PO 03/31/17 20:00 Future Hold (Milk Of Magnesia Liq) 30 ml DAILY PRN PO 03/31/17 20:00 (Mag-Al Plus Susp Liq) 30 ml Q6H PRN PO 03/31/17 20:00 (Lipitor) 10 mg HS PO 04/02/17 21:00 04/06/17 20:59 (Catapres) 0.1 mg Q6H PRN PO 04/02/17 14:15 (SEROquel) 25 mg DAILY@1400,2000 PO 04/02/17 20:00 04/06/17 20:58 (Procardia Xl) 60 mg DAILY PO 04/06/17 09:00 04/07/17 08:43 A/P Problem List: (1) Alzheimer's dementia with behavioral disturbance ICD Code: G30.9 - Alzheimer's disease, unspecified; F02.81 - Dementia in other diseases classified elsewhere with behavioral disturbance Assessment and Plan 86-year-old female with history of dementia, diabetes, hypertension, hypothyroidism, admitted to inpatient psychiatry for agitation and aggressive behavior at home. Dementia with Behavioral Disturbance/Aggressive Behavior: acute on chronic -continue management per psychiatry -continue patient's seroquel Accelerated Hypertension: acute on chronic, BP up to 217/93. Unclear if patient was taking medications -Continued patient's metoprolol 25mg bid and norvasc however BP still elevated, possibly combined with intermittent agitation, changed norvasc to procardia -clonidine prn -04/05 procardia increased to 60mg daily -BP improving Diabetes Mellitus: patient reports history of diabetes however HgbA1c 5.3 on . 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 Suspect secondary to dehydration -encourage oral intake -avoid nephrotoxins -repeat BMP continues to show improvement with Cr 1.24 Hyperkalemia: K 5.2 however slightly hemolysis noted -repeat BMP shows improvement with K 4.0 -resolved Severe Hypothyroidism: acute on chronic -TSH significantly elevated at >100 and T4 low at 0.38 -no evidence of myxedema coma -suspect patient noncompliant with medications at home -continue synthroid 150mcg daily -repeat thyroid function in 2 weeks on 04/18 as outpatient (or if still in hospital) Hyperlipidemia: Cholesterol 260, LDL 101 -started on low dose lipitor 10mg hs -outpatient f/up of LFTs in 2 weeks and lipid panel in 3 months DVT Prophylaxis: ambulation Problem Qualifiers (1) Alzheimer's dementia with behavioral disturbance: Qualified Codes: G30.1 - Alzheimer's disease with late onset; F02.81 - Dementia in other diseases classified elsewhere with behavioral disturbance Dari Vasquez PA-C Apr 07, 2017 1:48 pm
[2017-04-07] MEDS: QUEtiapine FUMARATE 25 MG TAB PO SCH ×2 (14:00→21:38)
--- NOTE | 2017-04-07 14:33 | HHI.PYPN ---
Subjective Chief Complaint: patient demented with increased aggression Remarks Patient seen in her room with medical student Jeramy chart review patient compliant medication. Patient continues pleasantly confused and disoriented, with no significant behavioral issues. Review of Systems Except as stated in HPI: all other systems reviewed are Neg Mental Status Examination Appearance: Appropriate Consciousness: Alert Orientation: Person (vaguely) Motor Activity: Other (some shuffling) Speech: Unremarkable Language: Adequate Fund of Knowledge: Poor Attention and Concentration: Easily Distracted Memory: Impaired Mood: Other (euthymic to somewhat restricted) Affect: Other (decreased range and intensity) Thought Process & Associations: Linear Thought Content: Other (disorganized) Hallucination Type: None (denies) Delusion Type: Paranoid Suicidal Ideation: No Suicidal Plan: No Suicidal Intention: No Homicidal Ideation: No Homicidal Plan: No Homicidal Intention: No Insight: Poor Judgment: Poor Results Vitals/IOs Vital Signs Date Time Temp Pulse Resp B/P (MAP) Pulse Ox O2 Delivery O2 Flow Rate FiO2 04/07/17 05:34 98.1 65 17 132/61 (84) 98 Intake and Output 04/07/17 04/07/17 04/08/17 08:00 16:00 00:00 Intake Total 360 ml 240 ml Balance 360 ml 240 ml Assessment & Plan Problem List: (1) Dementia in other diseases classified elsewhere with behavioral disturbance ICD Codes: F02.81 - Dementia in other diseases classified elsewhere with behavioral disturbance (2) Alzheimer's dementia with behavioral disturbance ICD Codes: G30.9 - Alzheimer's disease, unspecified; F02.81 - Dementia in other diseases classified elsewhere with behavioral disturbance Assessment & Plan Estimated LOS: days patient continues diffusely confused disoriented, though no significant behavioral problems. Compliant medication Justification for Cont. Inpt. At this time patient will decompensate and placed in a lower level of care Discharge Planning To work with family and counselors on placement Request HC Surrog/Guard Advoc?: Yes Problem Qualifiers (1) Alzheimer's dementia with behavioral disturbance: Qualified Codes: G30.1 - Alzheimer's disease with late onset; F02.81 - Dementia in other diseases classified elsewhere with behavioral disturbance Dino Mena MD Apr 07, 2017 14:33
[2017-04-07 18:21] VITALS: BP 130/66; PULSE 70; RESP 17; TEMP 98; O2SAT 99
[2017-04-07] MEDS: ATORVASTATIN 10 MG TAB PO SCH (21:38)
[2017-04-08] MEDS: LEVOTHYROXINE SODIUM 150 MCG TAB PO SCH (05:54)
[2017-04-08 06:15] VITALS: BP 147/75; PULSE 63; RESP 18; TEMP 97.3; O2SAT 99
[2017-04-08] MEDS: ASPIRIN 81 MG CHEW TAB PO SCH (08:38)
[2017-04-08] MEDS: CALCIUM/VITAMIN D 250 MG/125 U TAB PO SCH (08:38)
[2017-04-08] MEDS: ESTROGENS CONJUGATED 0.3 MG TAB PO SCH (08:38)
[2017-04-08] MEDS: METOPROLOL TARTRATE 25 MG TAB PO SCH ×2 (08:38→21:42)
[2017-04-08] MEDS: NIFEdipine 60 MG SUSTAINED RELEASE TAB PO SCH (08:38)
[2017-04-08] MEDS: MULTIVITAMINS/MINERALS THERAPEUTIC TAB PO SCH (08:38)
[2017-04-08] MEDS ORDERED: SERO25TA PO (09:55)
[2017-04-08] MEDS ORDERED: NIFE60TA8 PO (09:55)
[2017-04-08] MEDS ORDERED: LIPI10TA PO (09:55)
[2017-04-08] MEDS ORDERED: ASPI81 PO (09:55)
[2017-04-08] MEDS ORDERED: LEVO.15 PO (09:55)
[2017-04-08] MEDS ORDERED: ESTR.3 PO (09:55)
[2017-04-08] MEDS ORDERED: METO25TA3 PO (09:55)
[2017-04-08] MEDS ORDERED: CALC250 PO (09:55)
[2017-04-08] MEDS ORDERED: THERM PO (09:55)
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
--- NOTE | 2017-04-08 10:13 | PD.TTN ---
Patient Problems 1. Discharge planning 2. Medication compliance 3. Knowledge deficit 4. Lack of coping skills Progress Toward Goals Provider Present: Dr. Drew Mena Provider Input: 04/02/17 continue to monitor for improvement and behaviors while medicated and being somewhat new to the unit 04/08/17 Patient doing well. Patient will be discharged to [facility]. today. Psychiatric Counselors Present: Abbey Guevara LCSW Psych Therapist Input: 04/02/17 overall plesant and cooperative, not been able to reach family 04/08/17 Patient doing well, pleasant, appropriate. Will be discharged today to [facility]. via [place]. Group Spec/RT/OT/HENSLEY Present: Beatrice Keita, KIMMY, AYDEN Adhikari Group Spec/RT/OT/HENSLEY Input: 04/02/17 has not attend groups even with encouragement complaints of tiredness 04/08/17 Patient isolates to self but visable in the [place]. Bita Munoz [facility] Apr 08, 2017 10:13
[2017-04-08] MEDS: QUEtiapine FUMARATE 25 MG TAB PO SCH ×2 (14:00→21:41)
[2017-04-08] MEDS: ATORVASTATIN 10 MG TAB PO SCH (21:42)
[2017-04-09 05:41] VITALS: BP 140/65; PULSE 69; RESP 18; TEMP 97.4; O2SAT 98
[2017-04-09] MEDS: LEVOTHYROXINE SODIUM 150 MCG TAB PO SCH (06:03)
[2017-04-09] MEDS: ESTROGENS CONJUGATED 0.3 MG TAB PO SCH (08:08)
[2017-04-09] MEDS: CALCIUM/VITAMIN D 250 MG/125 U TAB PO SCH (08:08)
[2017-04-09] MEDS: NIFEdipine 60 MG SUSTAINED RELEASE TAB PO SCH (08:08)
[2017-04-09] MEDS: MULTIVITAMINS/MINERALS THERAPEUTIC TAB PO SCH (08:08)
[2017-04-09] MEDS: ASPIRIN 81 MG CHEW TAB PO SCH (08:08)
[2017-04-09] MEDS: METOPROLOL TARTRATE 25 MG TAB PO SCH (08:08)
[2017-04-09] MEDS ORDERED: LORazepam 1 MG TAB PO STA (10:28)
--- NOTE | 2017-04-09 13:58 | HHI.PYPN ---
Subjective Chief Complaint: patient demented with increased aggression Remarks This is a late entry made after patient has been discharge to [facility]. Patient seen today with nurse Jeannette, and patient's daughter. Patient showing markedly less resistance to discharge to determine health and rehabilitation with the encouragement of her daughter. Patient willing to be discharged. Patient to be discharged today with Rx 1 month. Follow-up services through that facility Review of Systems Except as stated in HPI: all other systems reviewed are Neg Mental Status Examination Appearance: Appropriate Consciousness: Alert Orientation: Person (vaguely) Motor Activity: Other (some shuffling) Speech: Unremarkable Language: Adequate Fund of Knowledge: Poor Attention and Concentration: Easily Distracted Memory: Impaired Mood: Other (euthymic to somewhat restricted) Affect: Other (decreased range and intensity) Thought Process & Associations: Linear Thought Content: Other (disorganized) Hallucination Type: None (denies) Delusion Type: Paranoid Suicidal Ideation: No Suicidal Plan: No Suicidal Intention: No Homicidal Ideation: No Homicidal Plan: No Homicidal Intention: No Insight: Poor Judgment: Poor Results Vitals/IOs Vital Signs Date Time Temp Pulse Resp B/P (MAP) Pulse Ox O2 Delivery O2 Flow Rate FiO2 04/09/17 05:41 97.4 69 18 140/65 (90) 98 Intake and Output 04/09/17 04/09/17 04/10/17 08:00 16:00 00:00 Intake Total 0 ml 120 ml Balance 0 ml 120 ml Assessment & Plan Problem List: (1) Dementia in other diseases classified elsewhere with behavioral disturbance ICD Codes: F02.81 - Dementia in other diseases classified elsewhere with behavioral disturbance (2) Alzheimer's dementia with behavioral disturbance ICD Codes: G30.9 - Alzheimer's disease, unspecified; F02.81 - Dementia in other diseases classified elsewhere with behavioral disturbance Assessment & Plan Estimated LOS: days patient to be discharged today to [facility] Justification for Cont. Inpt. Patient discharged today [facility] Discharge Planning Patient discharged today to do [facility] Request HC Surrog/Guard Advoc?: Yes Problem Qualifiers (1) Alzheimer's dementia with behavioral disturbance: Qualified Codes: G30.1 - Alzheimer's disease with late onset; F02.81 - Dementia in other diseases classified elsewhere with behavioral disturbance Dino Mena MD Apr 09, 2017 13:58
== END 2017-04-09 12:30 | DRG 57 ==
LOC: NEPD 12:09 → NEDA 16:16 → H250 19:21
PROVIDERS: ADMIT Psychiatry & Neurology Psychiatry; ATTEND Psychiatry & Neurology Psychiatry
DX: G30.1 Alzheimer's disease with late onset (principal); N17.9 Acute kidney failure, unspecified; F02.81 Dementia in other diseases classified elsewhere, unspecified severity, with behavioral disturbance; E11.22 Type 2 diabetes mellitus with diabetic chronic kidney disease; E03.9 Hypothyroidism, unspecified; S00.03XA Contusion of scalp, initial encounter; R60.0 Localized edema; I12.9 Hypertensive chronic kidney disease with stage 1 through stage 4 chronic kidney disease, or unspecified chronic kidney disease; N18.3 Chronic kidney disease, stage 3 (moderate); E86.0 Dehydration; E87.5 Hyperkalemia; E78.5 Hyperlipidemia, unspecified; W18.39XA Other fall on same level, initial encounter; Y92.009 Unspecified place in unspecified non-institutional (private) residence as the place of occurrence of the external cause; Z88.1 Allergy status to other antibiotic agents; Z88.5 Allergy status to narcotic agent; Z88.6 Allergy status to analgesic agent; Z91.14 Patient's other noncompliance with medication regimen; Z96.653 Presence of artificial knee joint, bilateral
CPT/HCPCS: 70450; 72125; 80048; 80053; 80061; 81001; 83036; 84439; 84443; 85025; J1200; J1630; J2060; J7030

== ENCOUNTER 2017-06-03 00:09 | Inpatient (IN) | payer MEDICARE, OTHER ==
[~2017-06-03] VITALS: Ht 175.3 cm; Wt 78.0 kg
[~2017-06-03 00:09] MED LIST changes: -AMLO10 PO; +LIPI10TA PO; +NIFE60TA8 PO
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
[2017-06-03 00:45] VITALS: BP 172/81; PULSE 75; RESP 15; TEMP 98.3; O2SAT 99
[2017-06-03 00:51] LABS: AUTOMATED NEUTROPHIL # 4.5 TH/MM3 (1.8-7.7); BASOPHIL # 0.1 TH/MM3 (0-0.2); BASOPHIL % 0.9 % (0.0-2.0); EOSINOPHIL % 0.6 % (0.0-4.0); HEMATOCRIT 33.7 % (35.0-46.0); HEMOGLOBIN 11.4 GM/DL (11.6-15.3); LYMPH % 24.5 % (9.0-44.0); LYMPHOCYTE # 1.7 TH/MM3 (1.0-4.8); MEAN CELL VOLUME 98.7 FL (80.0-100.0); MEAN CORPUSCULAR HEMOGLOBIN 33.4 PG (27.0-34.0); MEAN CORPUSCULAR HGB CONC 33.9 % (32.0-36.0); MEAN PLATELET VOLUME 8.1 FL (7.0-11.0); MONO % 10.6 % (0.0-8.0); MONOCYTE # 0.8 TH/MM3 (0-0.9); NEUT % 63.4 % (16.0-70.0); PLATELET COUNT 279 TH/MM3 (150-450); RED BLOOD COUNT 3.41 MIL/MM3 (4.00-5.30); RED CELL DISTRIBUTION WIDTH 14.1 % (11.6-17.2); WHITE BLOOD COUNT 7.1 TH/MM3 (4.0-11.0)
[2017-06-03] MEDS ORDERED: TRAZ50TA12 PO (01:06)
[2017-06-03] MEDS ORDERED: QUET5TAB PO (01:06)
[2017-06-03] MEDS ORDERED: ABH GEL (01:06)
[2017-06-03] MEDS ORDERED: MELA5 PO (01:06)
[2017-06-03 01:19] LABS: ALBUMIN 3.9 GM/DL (3.4-5.0); ALT (GPT) 16 U/L (10-53); AST (GOT) 16 U/L (15-37); BICARBONATE 26.2 MEQ/L (21.0-32.0); BLOOD UREA NITROGEN 32 MG/DL (7-18); CALCIUM 9.5 MG/DL (8.5-10.1); CHLORIDE 104 MEQ/L (98-107); CREATININE 1.82 MG/DL (0.50-1.00); GLOMERULAR FILTRATION RATE 32 ML/MIN (>89); GLUCOSE,RANDOM 100 MG/DL (74-106); SODIUM (NA) 139 MEQ/L (136-145)
[2017-06-03 01:28] LABS: ALKALINE PHOSPHATASE 71 U/L (45-117); TOTAL BILIRUBIN ADULT 0.4 MG/DL (0.2-1.0); TOTAL PROTEIN 8.6 GM/DL (6.4-8.2)
[2017-06-03] MEDS ORDERED: HALOPERIDOL LACTATE 5 MG/ML AMP IM ONE ×2 (04:30→05:15)
[2017-06-03 04:38] LABS: BILIRUBIN, URINE NEG (NEG); BLOOD, URINE NEG (NEG); GLUCOSE,URINE NEG (NEG); KETONE, URINE NEG (NEG); NITRITE,URINE NEG (NEG); PH, URINE 5.5 (5.0-8.5); URINE COLOR YELLOW (YELLW/STRAW); URINE LEUKOCYTE ESTERASE NEG (NEG)
[2017-06-03 07:53] VITALS: BP 218/102; PULSE 68; RESP 16; TEMP 98.2; O2SAT 100
[2017-06-03] MEDS: NIFEdipine 60 MG SUSTAINED RELEASE TAB PO SCH (09:30)
[2017-06-03] MEDS: ASPIRIN 81 MG CHEW TAB PO SCH (09:30)
[2017-06-03 18:02] VITALS: BP 185/87; PULSE 77; RESP 18; TEMP 98.5; O2SAT 97
[2017-06-03] MEDS: MELATONIN 5 MG TAB PO SCH (20:23)
[2017-06-03] MEDS: QUEtiapine FUMARATE 25 MG TAB PO SCH (20:23)
[2017-06-03] MEDS: ATORVASTATIN 10 MG TAB PO SCH (20:23)
[2017-06-03] MEDS: METOPROLOL TARTRATE 25 MG TAB PO SCH (20:23)
[2017-06-03] MEDS: traZODone HCL 50 MG TAB PO SCH (20:23)
[2017-06-04 05:30] VITALS: BP 176/82; PULSE 61; RESP 17; TEMP 98.3; O2SAT 99
[2017-06-04] MEDS: LEVOTHYROXINE SODIUM 150 MCG TAB PO SCH (06:00)
[2017-06-04] MEDS: METOPROLOL TARTRATE 25 MG TAB PO SCH ×3 (09:00→20:54)
[2017-06-04] MEDS: NIFEdipine 60 MG SUSTAINED RELEASE TAB PO SCH (09:00)
[2017-06-04] MEDS: ASPIRIN 81 MG CHEW TAB PO SCH (09:00)
[2017-06-04 09:12] LABS: BICARBONATE 23.2 MEQ/L (21.0-32.0); BLOOD UREA NITROGEN 27 MG/DL (7-18); CALCIUM 9.3 MG/DL (8.5-10.1); CHLORIDE 105 MEQ/L (98-107); CREATININE 1.53 MG/DL (0.50-1.00); GLOMERULAR FILTRATION RATE 39 ML/MIN (>89); GLUCOSE,RANDOM 124 MG/DL (74-106); SODIUM (NA) 137 MEQ/L (136-145)
[2017-06-04 09:13] LABS: CHOLESTEROL 175 MG/DL (120-200); TRIGLYCERIDES 44 MG/DL (42-150)
[2017-06-04 09:15] LABS: CHOLESTEROL/ HDL RATIO 1.68 RATIO; LDL CHOLESTEROL 62 MG/DL (0-99)
--- NOTE | 2017-06-04 09:39 | PD.TTN ---
Patient Problems 1. Discharge planning 2. Medication compliance 3. Knowledge deficit 4. Lack of coping skills Progress Toward Goals Provider Present: Dr. Drew Mena Provider Input: 06/02/2017; patient is a new admission will be assess for medication managment and dc needs Nurse(s) Present: RN Nurse(s) Input: 06/02/2017 Patient isolates, require coaching and encouragement with treatment and medication Psychiatric Counselors Present: GHANSHYAM Chirinos Psych Therapist Input: 06/02/2017; patient is a new admission will be assess for medication managment and dc needs Group Spec/RT/OT/HENSLEY Present: Ac Carpenter OT Group Spec/RT/OT/HENSLEY Input: 06/02/2017; patient is a new admission will be assess for inpatient services Documentation Scribe: Leora Gonzales Jun 04, 2017 09:39
[2017-06-04] MEDS ORDERED: cloNIDine HCL 0.1 MG TAB PO PRN (10:15)
[2017-06-04] MEDS ORDERED: hydrOXYzine HCL 50 MG TAB PO PRN (11:30)
--- NOTE | 2017-06-04 11:44 | HHI.HP ---
Provisional Diagnosis Admission Date Jun 03, 2017 at 08:55 [place]. 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 Express and informed consent means consent voluntarily given in writing, by a competent person, after sufficient explanation and disclosure of the subject matter involved to enable the person to make a knowing and willful decision without any element of force, fraud, deceit, duress, or other form of constraint or coercion. This person is 18 years of age or older, is not now known to be incompetent to consent to treatment with a guardian advocate, and does not have a health care surrogate or proxy currently making medical treatment decisions. I have found this person to be one of the following: [] Competent to provide express and informed consent, as defined above, for voluntary admission to this facility and is competent to provide express and informed consent for treatment. He/she has the consistent capacity to make well reasoned, willful, and knowing decisions concerning his or her medical or mental health treatment. The person fully and consistently understands the purpose of the admission for examination/placement and is fully capable of personally exercising all rights [place]xxx] Incompetent to provide express and informed consent to voluntary admission , and this is incompetent to provide express and informed consent to treatment. The person must be transferred to involuntary status and a petition for a guardian advocate filed with the Circuit Court. [] Refusing to provide express and informed consent to voluntary admission but is competent to provide express and informed consent for treatment. The person must be discharged or transferred to involuntary status. Form shall be completed within 24 hours of a person's arrival at the receiving facility and filed in the clinical record of each person: 1. Admitted on a voluntary basis 2. Permitted to provide express and informed consent to his/her own treatment 3. Allowed to transfer from involuntary to voluntary status 4. Prior to permitting a person to consent to his or her own treatment after having been previously found incompetent to consent to treatment. History of Present Illness Capacity: Lacks Capacity Psych Chief Complaint: patient demented and aggressive HPI Patient is an 86-year-old Afro-[place]er female who comes here under Paul act signed by Hank Malik [facility] dated 06/02/17 at 9:30 PM that document reviewed. It is stating patient was reportedly not slept in 48 hours increasingly agitated and disoriented to place situation and time. Has attempted to interfere with facility staff providing care to other residents and threatening to shoot staff and slammed walker down in the threatening manner toward staff. Rambling incoherent speech refuses to take medication to help her, Ativan, Haldol, Seroquel. Refuses voluntary hospitalization delusional statements about poisoned food. Patient seen screened in the emergency department urine toxicology negative blood alcohol level negative. Patient seen in her room with nurse Zuri, she is an alert Afro-H[place] Konger female appears stated age she is oriented only to person she is diffusely confused as to place time and situation. 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 She also thinks she is in [facility]. She states her is still alive. She does denies suicidality homicidality voices or visions. She denies any alcohol or drug use. This is patient's third admission to [facility] psychiatric department since middle of January 2017. This time patient does meet criteria for further involuntary psychiatric hospitalization of the Paul act I'll do first opinion request second opinion. I feel she does not have capacity thus I'll ask for healthcare surrogate and guardian advocate. We'll of hospitalist consult will us. We will also have OT and PT assessments. We need to talk with patient's family to discuss placement issues medication and treatment. Review of Systems Except as stated in HPI: all other systems reviewed are Neg Past Psych History Psychological trauma history Patient denies Violence risk - others (6 mos) Patient had threatening behavior towards residents and staff and her home Violence risk - self (6 mos) Low Substance Abuse History Drugs/Alcohol past 12 months Denies Past Family Social History Coded Allergies: acetaminophen (Unverified Allergy, Severe, 06/03/17) doxycycline (Unverified Allergy, Severe, 06/03/17) hydrocodone (Unverified Allergy, Severe, 06/03/17) minocycline (Unverified Allergy, Severe, 06/03/17) tigecycline (Unverified Allergy, Severe, 06/03/17) Active Scripts Nifedipine ER 24 HR (Nifedipine ER 24 HR) 60 Mg Tab, 60 MG PO DAILY for health, #30 TAB 0 Refills Prov:Dino Mena MD 04/08/17 Atorvastatin (Lipitor) 10 Mg Tab, 10 MG PO HS for health, #30 TAB 0 Refills Prov:Dino Mena MD 04/08/17 Levothyroxine (Synthroid) 150 Mcg Tab, 150 MCG PO DAILY@0600 for health for 30 Days, #30 TAB 0 Refills Prov:Dino Mena MD 04/08/17 Aspirin (Tgt Aspirin) 81 Mg Chw, 81 MG PO DAILY for health for 30 Days, #30 EA 0 Refills Prov:Dino Mena MD 04/08/17 Metoprolol Tartrate (Metoprolol Tartrate) 25 Mg Tab, 25 MG PO Q12HR for health for 30 Days, #60 TAB 0 Refills Prov:Dino Mena MD 04/08/17 Reported Medications [Abh Gel] No Conflict Check 06/03/17 Trazodone (Trazodone) 50 Mg Tab, 50 MG PO HS for Control Depression, #30 TAB 0 Refills 06/03/17 Quetiapine (Quetiapine) 50 Mg Tab, 50 MG PO HS, #30 TAB 0 Refills 06/03/17 Melatonin (Melatonin) 5 Mg Tab, 5 MG PO HS for Provide Good Sleep, TAB 0 Refills 06/03/17 Discontinued Scripts Quetiapine (Seroquel) 25 Mg Tab, 25 MG PO DAILY@1400,2000 for health, #60 TAB 0 Refills Prov:Dino Mena MD 04/08/17 Multiple Vitamins W/ Minerals (Thera M Plus) 1 Tab, 1 TAB PO DAILY for health for 30 Days, #30 TAB 0 Refills Prov:Dino Mena MD 04/08/17 Estrogens, Conjugated (Premarin) 0.3 Mg Tab, 0.3 MG PO DAILY for health for 30 Days, #30 TAB 0 Refills Prov:Dino Mena MD 04/08/17 Calcium/Vitamin D (Oyster Shell 250 mg + Vit D Tb) 250 Mg Calcium (625 Mg)-125 Unit Tablet, 500 MG PO DAILY for health for 30 Days, #30 TAB 0 Refills Prov:Dino Mena MD 04/08/17 Current Medications Medications (Trade) Dose Ordered Sig/Mary Route Start Time Stop Time Status Last Admin (Aspirin Chew) 81 mg DAILY PO 06/03/17 09:30 (Lipitor) 10 mg HS PO 06/03/17 21:00 06/03/17 20:23 (Synthroid) 150 mcg DAILY@0600 PO 06/04/17 06:00 06/04/17 06:00 (Melatonin) 5 mg HS PO 06/03/17 21:00 (Lopressor) 25 mg Q12HR PO 06/03/17 21:00 06/03/17 20:23 (Procardia Xl) 60 mg DAILY PO 06/03/17 09:30 (Desyrel) 50 mg HS PO 06/03/17 21:00 (SEROquel) 50 mg HS PO 06/03/17 21:00 (Catapres) 0.1 mg Q6H PRN PO 06/04/17 10:15 (Apresoline) 25 mg Q8HR PO 06/04/17 14:00 Family Psych History Along with this time due to patient's dementia Patient's Strengths (min. 2) Patient living in a fdc. States she has adult children but unable to delineate them Physical Exam Patient medically cleared through ED at the present time patient standing beside her bed in no acute distress she is in no respiratory distress, no complaints of abdominal pain, patient moving all 4 extremities without difficulty walking around the unit without difficulty Vital Signs Vital Signs Date Time Temp Pulse Resp B/P (MAP) Pulse Ox O2 Delivery O2 Flow Rate FiO2 06/04/17 05:30 98.3 61 17 176/82 (113) 99 06/03/17 07:53 Room Air I/O 06/04/17 06/04/17 06/05/17 08:00 16:00 00:00 Intake Total 480 ml Balance 480 ml Lab Results Test 06/04/17 08:45 Blood Urea Nitrogen 27 MG/DL Creatinine 1.53 MG/DL Random Glucose 124 MG/DL Calcium Level 9.3 MG/DL Sodium Level 137 MEQ/L Potassium Level 4.1 MEQ/L Chloride Level 105 MEQ/L Carbon Dioxide Level 23.2 MEQ/L Anion Gap 9 MEQ/L Estimat Glomerular Filtration Rate 39 ML/MIN Triglycerides Level 44 MG/DL Cholesterol Level 175 MG/DL LDL Cholesterol 62 MG/DL HDL Cholesterol 104.0 MG/DL Cholesterol/HDL Ratio 1.68 RATIO Mental Status Examination Appearance: Appropriate Consciousness: Alert Orientation: Person (poorly) Motor Activity: Normal gait Speech: Unremarkable Language: Adequate Fund of Knowledge: Adequate Attention and Concentration: Easily Distracted Memory: Impaired Mood: Other (euthymic to somewhat dysphoric and labile) Affect: Other (good range and intensity) Thought Process & Associations: Disorganized Thought Content: Delusional Hallucination Type: None (patient denies) Delusion Type: Paranoid Suicidal Ideation: No (denies at this time) Suicidal Plan: No Suicidal Intention: No Homicidal Ideation: No (denies at this time) Insight: Poor Assessment & Plan Problem List: (1) Dementia in other diseases classified elsewhere with behavioral disturbance ICD Codes: F02.81 - Dementia in other diseases classified elsewhere with behavioral disturbance (2) Alzheimer's dementia with behavioral disturbance ICD Codes: G30.9 - Alzheimer's disease, unspecified; F02.81 - Dementia in other diseases classified elsewhere with behavioral disturbance Assessment & Plan Estimated LOS: 5-7 days this time patient meets criteria for involuntary psychiatric hospitalization of the Paul act I'll do first opinion request second opinion. I feel she did not have capacity thus I will ask for healthcare surrogate and guardian advocate. We will of hospitalist consult with us. With OT PT assessments also. We'll continue medication per the med reconciliation. We will counselor attempt reach patient's family to discuss further treatment and placement options Discharge Planning To be determined with assistance of family Request HC Surrog/Guard Advoc?: Yes Dino Mena MD Jun 04, 2017 11:44
[2017-06-04] MEDS ORDERED: hydrALAZINE HCL 25 MG TAB PO SCH (14:00)
[2017-06-04] MEDS: hydrALAZINE HCL 25 MG TAB PO SCH ×2 (14:00→20:55)
--- NOTE | 2017-06-04 15:07 | PD.CONS ---
HPI Service [facility] Hospitalists Consult Requested By Psychiatry Reason for Consult Medical management for hypertension Primary Care Physician Unknown Diagnoses: History of Present Illness 86 years old -[place] female admitted to psych department for dementia and other psychiatry issue, hospitalist requested to see patient for medical management [place] uncontrolled hypertension, patient extremely difficult to obtain any history from, she is demented she is refusing her blood pressure medication blood pressure going to 218/102. I tried my best to discuss with the patient however she is completely noncoherent seems to be paranoid I discussed with the nurse we tried to give her the pill but we failed so I will give her a patch of Breath Review of Systems ROS Limitations: Psychotic, Poor Historian Past Family Social History Allergies: Coded Allergies: acetaminophen (Unverified Allergy, Severe, 06/03/17) doxycycline (Unverified Allergy, Severe, 06/03/17) hydrocodone (Unverified Allergy, Severe, 06/03/17) minocycline (Unverified Allergy, Severe, 06/03/17) tigecycline (Unverified Allergy, Severe, 06/03/17) Past Medical History Unobtainable Past Surgical History Unobtainable Family History Unobtainable Social History Unobtainable Physical Exam Vital Signs Vital Signs Date Time Temp Pulse Resp B/P (MAP) Pulse Ox O2 Delivery O2 Flow Rate FiO2 06/04/17 05:30 98.3 61 17 176/82 (113) 99 06/03/17 18:02 98.5 77 18 185/87 (119) 97 Physical Exam GENERAL: This is a well-nourished, well-developed patient, in no apparent distress. SKIN: No rashes, warm and dry HEAD: Atraumatic. Normocephalic. EYES: Pupils equal round and reactive. Extraocular motions intact. No scleral icterus. ENT: Nose without bleeding, or drainage, Airway patent. NECK: Trachea midline. Supple CARDIOVASCULAR: Regular rate and rhythm without murmurs, gallops, or rubs. RESPIRATORY: Fair air entry bilaterally. No wheezes, rales, or rhonchi. GASTROINTESTINAL: Abdomen soft, non-tender, nondistended. Positive bowel sounds MUSCULOSKELETAL: Extremities without clubbing, cyanosis, or edema. Pedal pulses appreciated NEUROLOGICAL: Awake and alert. Moves all extremity. Normal speech.no focal neurological deficit Laboratory Laboratory Tests Test 06/04/17 08:45 Blood Urea Nitrogen 27 Creatinine 1.53 Random Glucose 124 Calcium Level 9.3 Sodium Level 137 Potassium Level 4.1 Chloride Level 105 Carbon Dioxide Level 23.2 Anion Gap 9 Estimat Glomerular Filtration Rate 39 Triglycerides Level 44 Cholesterol Level 175 LDL Cholesterol 62 HDL Cholesterol 104.0 Cholesterol/HDL Ratio 1.68 Result Diagram: 06/03/17 0040 06/04/17 0845 Assessment and Plan Assessment and Plan 86 years old female with history of hypertension admitted to psych department and we were consulted for uncontrolled hypertension, patient extremely poor historian blood pressure goes up to 218/102 , we tried to give her her nifedipine pill but she is refusing so I will place clonidine patch 0.1 and monitor blood pressure. I reviewed hemoglobin A1c 5.2 within normal limits as well as FLP showing cholesterol LDL within normal limits and high HDL continue her Lipitor Continue Synthroid for hypothyroidism, TSH is high, consider increasing the dose to 162.5 if has not been increased recently Discussed with the nurse will monitor and follow along Thank you for this consultation we will follow patient along with you Kev Vasques MD Jun 04, 2017 15:07
[2017-06-04] MEDS ORDERED: REMOVE OLD PATCH T-DERMAL SCH (16:00)
[2017-06-04] MEDS ORDERED: cloNIDine HCL 0.1 MG/24 HR PATCH T-DERMAL SCH (16:00)
[2017-06-04 16:51] LABS: HEMOGLOBIN A1C 5.2 % (4.3-6.0)
[2017-06-04 18:00] VITALS: BP 117/59; PULSE 73; RESP 16; TEMP 98.4; O2SAT 98
[2017-06-04] MEDS: traZODone HCL 50 MG TAB PO SCH ×2 (19:52→20:54)
[2017-06-04] MEDS: MELATONIN 5 MG TAB PO SCH ×2 (19:53→20:55)
[2017-06-04] MEDS: ATORVASTATIN 10 MG TAB PO SCH ×2 (19:53→20:54)
[2017-06-04] MEDS: QUEtiapine FUMARATE 25 MG TAB PO SCH ×2 (19:53→20:55)
[2017-06-04] MEDS ORDERED: diphenhydrAMINE HCL 50 MG CAP PO PRN (21:00)
[2017-06-04] MEDS ORDERED: HALOPERIDOL LACTATE 5 MG/ML AMP IM ONE (21:15)
[2017-06-04] MEDS ORDERED: OLANZapine IM 10 MG VIAL IM ONE (23:15)
[2017-06-05] MEDS: LEVOTHYROXINE SODIUM 150 MCG TAB PO SCH (05:21)
[2017-06-05] MEDS: hydrALAZINE HCL 25 MG TAB PO SCH ×4 (05:21→20:23)
[2017-06-05 06:00] VITALS: BP 211/91; PULSE 94; RESP 18; TEMP 98; O2SAT 99
[2017-06-05] MEDS: METOPROLOL TARTRATE 25 MG TAB PO SCH ×2 (10:49→20:23)
[2017-06-05] MEDS: ASPIRIN 81 MG CHEW TAB PO SCH (10:49)
[2017-06-05] MEDS: NIFEdipine 60 MG SUSTAINED RELEASE TAB PO SCH (10:49)
--- NOTE | 2017-06-05 11:09 | PD.PSY.CON ---
Provisional Diagnosis Admission Date Jun 03, 2017 at 08:55 [place] I. 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 Mena Reason for Consult Second opinion Primary Care Physician Unknown HPI Patient is an 86-year-old Afro-Syrian female who comes here under Paul act signed by Hank Malik [employer] dated 06/02/17 at 9:30 PM that document reviewed. It is stating patient was reportedly not slept in 48 hours increasingly agitated and disoriented to place situation and time. Has attempted to interfere with facility staff providing care to other residents and threatening to shoot staff and slammed walker down in the threatening manner toward staff. Rambling incoherent speech refuses to take medication to help her, Ativan, Haldol, Seroquel. Refuses voluntary hospitalization delusional statements about poisoned food. Patient seen screened in the emergency department urine toxicology negative blood alcohol level negative. Patient seen in her room with nurse Zuri, she is an alert Afro-Syrian female appears stated age she is oriented only to person she is diffusely confused as to place time and situation. 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 She also thinks she is in [facility]. She states her is still alive. She does denies suicidality homicidality voices or visions. She denies any alcohol or drug use. This is patient's third admission to [facility] psychiatric department since middle of January 2017. This time patient does meet criteria for further involuntary psychiatric hospitalization of the Paul act I'll do first opinion request second opinion. I feel she does not have capacity thus I'll ask for healthcare surrogate and guardian advocate. We'll of hospitalist consult will us. We will also have OT and PT assessments. We need to talk with patient's family to discuss placement issues medication and treatment. The patient is a 86 years old -Syrian woman, she has a psychiatric history of dementia with behavior disturbances, paranoia, agitation and aggressive behavior, multiple psychiatric admissions, who comes on the Paul act due to increasingly agitation, hostility and aggressive behavior at her facility. The patient was consulted to me for second opinion. The patient is very disorganized, unable to answer any of my questions. She continues mumbling , looking to another side, verbally hostile, irritable. As per nurses, the patient has been episodically agitated, very difficult to handle in the unit. Past Family Social History Coded Allergies: acetaminophen (Unverified Allergy, Severe, 06/03/17) doxycycline (Unverified Allergy, Severe, 06/03/17) hydrocodone (Unverified Allergy, Severe, 06/03/17) minocycline (Unverified Allergy, Severe, 06/03/17) tigecycline (Unverified Allergy, Severe, 06/03/17) Active Scripts Nifedipine ER 24 HR (Nifedipine ER 24 HR) 60 Mg Tab, 60 MG PO DAILY for health, #30 TAB 0 Refills Prov:Dino Mena MD 04/08/17 Atorvastatin (Lipitor) 10 Mg Tab, 10 MG PO HS for health, #30 TAB 0 Refills Prov:Dino Mena MD 04/08/17 Levothyroxine (Synthroid) 150 Mcg Tab, 150 MCG PO DAILY@0600 for health for 30 Days, #30 TAB 0 Refills Prov:Dino Mena MD 04/08/17 Aspirin (Tgt Aspirin) 81 Mg Chw, 81 MG PO DAILY for health for 30 Days, #30 EA 0 Refills Prov:Dino Mena MD 04/08/17 Metoprolol Tartrate (Metoprolol Tartrate) 25 Mg Tab, 25 MG PO Q12HR for health for 30 Days, #60 TAB 0 Refills Prov:Dino Mena MD 04/08/17 Reported Medications [Abh Gel] No Conflict Check 06/03/17 Trazodone (Trazodone) 50 Mg Tab, 50 MG PO HS for Control Depression, #30 TAB 0 Refills 06/03/17 Quetiapine (Quetiapine) 50 Mg Tab, 50 MG PO HS, #30 TAB 0 Refills 06/03/17 Melatonin (Melatonin) 5 Mg Tab, 5 MG PO HS for Provide Good Sleep, TAB 0 Refills 06/03/17 Discontinued Scripts Quetiapine (Seroquel) 25 Mg Tab, 25 MG PO DAILY@1400,2000 for health, #60 TAB 0 Refills Prov:Dino Mena MD 04/08/17 Multiple Vitamins W/ Minerals (Thera M Plus) 1 Tab, 1 TAB PO DAILY for health for 30 Days, #30 TAB 0 Refills Prov:Dino Mena MD 04/08/17 Estrogens, Conjugated (Premarin) 0.3 Mg Tab, 0.3 MG PO DAILY for health for 30 Days, #30 TAB 0 Refills Prov:Dino Mena MD 04/08/17 Calcium/Vitamin D (Oyster Shell 250 mg + Vit D Tb) 250 Mg Calcium (625 Mg)-125 Unit Tablet, 500 MG PO DAILY for health for 30 Days, #30 TAB 0 Refills Prov:Dino Mena MD 04/08/17 Current Medications Medications (Trade) Dose Ordered Sig/Mary Route Start Time Stop Time Status Last Admin (Aspirin Chew) 81 mg DAILY PO 06/03/17 09:30 06/05/17 10:49 (Lipitor) 10 mg HS PO 06/03/17 21:00 06/03/17 20:23 (Synthroid) 150 mcg DAILY@0600 PO 06/04/17 06:00 06/04/17 06:00 (Melatonin) 5 mg HS PO 06/03/17 21:00 (Lopressor) 25 mg Q12HR PO 06/03/17 21:00 06/05/17 10:49 (Procardia Xl) 60 mg DAILY PO 06/03/17 09:30 06/05/17 10:49 (Desyrel) 50 mg HS PO 06/03/17 21:00 (SEROquel) 50 mg HS PO 06/03/17 21:00 (Catapres) 0.1 mg Q6H PRN PO 06/04/17 10:15 (Apresoline) 25 mg Q8HR PO 06/04/17 14:00 06/05/17 05:56 (Benadryl) 50 mg HS PRN PO 06/04/17 21:00 (Atarax) 50 mg Q6H PRN PO 06/04/17 11:30 (Catapres-Tts 0.1mg Patch.7d) 1 patch Q7D T-DERMAL 06/04/17 16:00 06/04/17 16:00 Miscellaneous Information 1 Q7D T-DERMAL 06/04/17 16:00 Patient's Strengths (min. 2) Patient living in a shelter. States she has adult children but unable to delineate them Physical Exam Vital Signs Vital Signs Date Time Temp Pulse Resp B/P (MAP) Pulse Ox O2 Delivery O2 Flow Rate FiO2 06/05/17 06:00 98.0 94 18 211/91 (131) 99 06/03/17 07:53 Room Air Mental Status Examination Appearance: Appropriate Consciousness: Alert Orientation: Person (poorly) Motor Activity: Normal gait Speech: Unremarkable Language: Adequate Fund of Knowledge: Adequate Attention and Concentration: Easily Distracted Memory: Impaired Mood: Other (euthymic to somewhat dysphoric and labile) Affect: Other (good range and intensity) Thought Process & Associations: Disorganized Thought Content: Delusional Hallucination Type: None (patient denies) Delusion Type: Paranoid Suicidal Ideation: No (denies at this time) Suicidal Plan: No Suicidal Intention: No Homicidal Ideation: No (denies at this time) Insight: Poor Assessment & Plan Problem List: (1) Dementia in other diseases classified elsewhere with behavioral disturbance ICD Codes: F02.81 - Dementia in other diseases classified elsewhere with behavioral disturbance (2) Alzheimer's dementia with behavioral disturbance ICD Codes: G30.9 - Alzheimer's disease, unspecified; F02.81 - Dementia in other diseases classified elsewhere with behavioral disturbance Assessment & Plan: I have seen and examined this patient, I reviewed documentation, I agree and concur with Dr. Mena's assessment and plan. Assessment & Plan Estimated LOS: days Request HC Surrog/Guard Advoc?: Yes Jerman Phillips MD Jun 05, 2017 11:09
--- NOTE | 2017-06-05 11:23 | HHI.PR ---
Subjective Remarks Follow up on patient with HTN, hypothyroidism. Patient seen and examined. Patient is calm and cooperative. She denies any complaints. No headache, dizziness, fever, chills, chest pain, dyspnea or abdominal pain. Her BP was 211 /91 this morning but nursing staff rechecked with larger cuff while I was in the unit and reading was 159/72. Objective Vitals Vital Signs Date Time Temp Pulse Resp B/P (MAP) Pulse Ox O2 Delivery O2 Flow Rate FiO2 06/05/17 06:00 98.0 94 18 211/91 (131) 99 06/04/17 18:00 98.4 73 16 117/59 (78) 98 I/O 06/04/17 06/04/17 06/04/17 06/05/17 06/05/17 06/05/17 06:59 14:59 22:59 06:59 14:59 22:59 Intake Total 0 ml 960 ml 600 ml Balance 0 ml 960 ml 600 ml Intake Oral 0 ml 960 ml 600 ml # Voids 2 1 Result Diagram: 06/03/17 0040 06/04/17 0845 Objective Remarks GENERAL: This is a well-nourished, well-developed elderly female patient, in no apparent distress. Awake and alert. Appears comfortable. SKIN: Warm and dry. No rash. HEAD: Atraumatic. Normocephalic. EYES: Pupils equal round and reactive. Extraocular motions intact. No scleral icterus. ENT: Nose without bleeding, or drainage. Airway patent. MMM. NECK: Trachea midline. Supple CARDIOVASCULAR: Regular rate and rhythm without murmurs, gallops, or rubs. RESPIRATORY: Fair air entry bilaterally. No wheezes, rales, or rhonchi. GASTROINTESTINAL: Abdomen soft, non-tender, nondistended. Positive bowel sounds MUSCULOSKELETAL: Extremities without clubbing, cyanosis, or edema. No obvious deformities. NEUROLOGICAL: Awake and alert. Moves all extremities. No focal neurologic findings appreciated. Normal speech. PSYCHIATRIC: Calm and pleasant. Cooperative. Medications and IVs Current Medications Medications (Trade) Dose Ordered Sig/Mary Route Start Time Stop Time Status Last Admin (Aspirin Chew) 81 mg DAILY PO 06/03/17 09:30 06/05/17 10:49 (Lipitor) 10 mg HS PO 06/03/17 21:00 06/03/17 20:23 (Synthroid) 150 mcg DAILY@0600 PO 06/04/17 06:00 06/04/17 06:00 (Melatonin) 5 mg HS PO 06/03/17 21:00 (Lopressor) 25 mg Q12HR PO 06/03/17 21:00 06/05/17 10:49 (Procardia Xl) 60 mg DAILY PO 06/03/17 09:30 06/05/17 10:49 (Desyrel) 50 mg HS PO 06/03/17 21:00 (SEROquel) 50 mg HS PO 06/03/17 21:00 (Catapres) 0.1 mg Q6H PRN PO 06/04/17 10:15 (Apresoline) 25 mg Q8HR PO 06/04/17 14:00 06/05/17 05:56 (Benadryl) 50 mg HS PRN PO 06/04/17 21:00 (Atarax) 50 mg Q6H PRN PO 06/04/17 11:30 (Catapres-Tts 0.1mg Patch.7d) 1 patch Q7D T-DERMAL 06/04/17 16:00 06/04/17 16:00 Miscellaneous Information 1 Q7D T-DERMAL 06/04/17 16:00 A/P Assessment and Plan 86yo female with PMHX of HTN and hypothyroidism admitted under [facility] due to dementia with behavioral disturbance. Dementia with behavioral disturbance -Management per psychiatric team -UDS negative Hypertension -patient on Nifedipine XL 60mg daily, Hydralazine 25mg q8hr and Lopressor 25mg BID, agreeable to taking medications today -started on Clonidine patch due to refusal to take oral meds, discontinue -monitor BP and adjust treatment accordingly Hypothyroidism -TSH elevated at 43, strongly suspect due to patient medication noncompliance -d/w nursing staff, patient refused her Levothyroxine yesterday -recommend continuing on current dose of Levothyroxine 150mcg daily and have TSH level rechecked in 4-6 weeks by PCP and if still elevated adjust dose at that time. KELLY on suspected CKD -suspect secondary to poor oral intake/dehydration, BUN 32 -creatinine improving 1.82 -> 1.53 -UA unremarkable -encourage po intake -avoid nephrotoxic agents -monitor renal indices as indicated DVT prophylaxis -Patient is ambulatory Discussed with patient, nursing staff Deb Mills Jun 05, 2017 11:23
--- NOTE | 2017-06-05 12:52 | HHI.PYPN ---
Subjective Chief Complaint: patient demented and aggressive Remarks Patient seen in her room with nurse Haja, chart review, patient compliant medications, patient discussed with nurse. Appears patient's behavior was somewhat out of control yesterday evening necessitating to small doses of Haldol followed by a small dose of Zyprexa feeling quite down and slept fairly well for the night. It appears she has been more cooperative this morning also taking her regularly scheduled medical medications. Patient seen by me today. She was alert continues disoriented but did recognize my face, did know she was at [facility] but was confused as to date and situation. Though she did not show the anger and irritability that she showed yesterday evening. For now continue treatment and observation Review of Systems Except as stated in HPI: all other systems reviewed are Neg Mental Status Examination Appearance: Appropriate Consciousness: Alert Orientation: Person (poorly) Motor Activity: Normal gait Speech: Unremarkable Language: Adequate Fund of Knowledge: Adequate Attention and Concentration: Easily Distracted Memory: Impaired Mood: Other (euthymic to somewhat dysphoric and labile) Affect: Other (good range and intensity) Thought Process & Associations: Disorganized Thought Content: Delusional Hallucination Type: None (patient denies) Delusion Type: Paranoid Suicidal Ideation: No (denies at this time) Suicidal Plan: No Suicidal Intention: No Homicidal Ideation: No (denies at this time) Insight: Poor Results Vitals/IOs Vital Signs Date Time Temp Pulse Resp B/P (MAP) Pulse Ox O2 Delivery O2 Flow Rate FiO2 06/05/17 06:00 98.0 94 18 211/91 (131) 99 06/03/17 07:53 Room Air Assessment & Plan Problem List: (1) Dementia in other diseases classified elsewhere with behavioral disturbance ICD Codes: F02.81 - Dementia in other diseases classified elsewhere with behavioral disturbance (2) Alzheimer's dementia with behavioral disturbance ICD Codes: G30.9 - Alzheimer's disease, unspecified; F02.81 - Dementia in other diseases classified elsewhere with behavioral disturbance Status: Resolved Assessment & Plan Estimated LOS: days patient continues confused and demented, did need extra medication last evening, so far calm and cooperative. She continues markedly disorganized confused. Justification for Cont. Inpt. At this time patient will decompensate if placed in the lower level of care Discharge Planning To be determined Request HC Surrog/Guard Advoc?: Yes Problem Qualifiers (1) Alzheimer's dementia with behavioral disturbance: Qualified Codes: G30.1 - Alzheimer's disease with late onset; F02.81 - Dementia in other diseases classified elsewhere with behavioral disturbance Dino Mena MD Jun 05, 2017 12:52
[2017-06-05 18:11] VITALS: BP 163/75; PULSE 68; RESP 16; TEMP 97.6; O2SAT 99
[2017-06-05] MEDS: traZODone HCL 50 MG TAB PO SCH (20:23)
[2017-06-05] MEDS: QUEtiapine FUMARATE 25 MG TAB PO SCH (20:23)
[2017-06-05] MEDS: ATORVASTATIN 10 MG TAB PO SCH (20:23)
[2017-06-05] MEDS: MELATONIN 5 MG TAB PO SCH (20:23)
[2017-06-06] MEDS: LEVOTHYROXINE SODIUM 150 MCG TAB PO SCH (05:55)
[2017-06-06 06:00] VITALS: BP 151/82; PULSE 73; RESP 16; TEMP 97; O2SAT 98
[2017-06-06] MEDS: hydrALAZINE HCL 25 MG TAB PO SCH ×4 (06:08→21:38)
[2017-06-06] MEDS: METOPROLOL TARTRATE 25 MG TAB PO SCH ×3 (09:30→21:00)
[2017-06-06] MEDS: NIFEdipine 60 MG SUSTAINED RELEASE TAB PO SCH (09:30)
[2017-06-06] MEDS: ASPIRIN 81 MG CHEW TAB PO SCH (09:30)
--- NOTE | 2017-06-06 12:58 | HHI.PR ---
Subjective Remarks Follow up on patient with HTN, hypothyroidism. Patient seen and examined. Patient is confused. Oriented to self only. She denies any complaints. She appears comfortable sitting up beside her bed eating her breakfast. Patient refused her blood pressure medications earlier today but nursing staff is attempting to give them with her lunchtime meal. Discussed with PRATIBHA Thomson, no acute issues noted. Objective Vitals Vital Signs Date Time Temp Pulse Resp B/P (MAP) Pulse Ox O2 Delivery O2 Flow Rate FiO2 06/06/17 06:00 97.0 73 16 151/82 (105) 98 06/05/17 18:11 97.6 68 16 163/75 (104) 99 I/O 06/05/17 06/05/17 06/05/17 06/06/17 06/06/17 06/06/17 06:59 14:59 22:59 06:59 14:59 22:59 Intake Total 240 ml 600 ml 2 ml 600 ml Output Total 0 ml Balance 240 ml 600 ml 2 ml 600 ml Intake Oral 240 ml 600 ml 2 ml 600 ml Output Urine Total 0 ml # Voids 1 Result Diagram: 06/03/17 0040 06/04/17 0845 Objective Remarks GENERAL: This is a well-nourished, well-developed elderly female patient, in no apparent distress. Awake and alert. Appears comfortable. Sitting on side of bed eating lunch. SKIN: Warm and dry. No rash. HEAD: Atraumatic. Normocephalic. EYES: Pupils equal round and reactive. Extraocular motions intact. No scleral icterus. ENT: Nose without bleeding, or drainage. Airway patent. MMM. NECK: Trachea midline. Supple CARDIOVASCULAR: Regular rate and rhythm without murmurs, gallops, or rubs. RESPIRATORY: Fair air entry bilaterally. No wheezes, rales, or rhonchi. GASTROINTESTINAL: Abdomen soft, non-tender, nondistended. Positive bowel sounds MUSCULOSKELETAL: Extremities without clubbing, cyanosis, or edema. No obvious deformities. NEUROLOGICAL: Awake and alert. Moves all extremities. No focal neurologic findings appreciated. Normal speech. PSYCHIATRIC: Calm and pleasant. Cooperative. Medications and IVs Current Medications Medications (Trade) Dose Ordered Sig/Mary Route Start Time Stop Time Status Last Admin (Aspirin Chew) 81 mg DAILY PO 06/03/17 09:30 06/06/17 09:30 (Lipitor) 10 mg HS PO 06/03/17 21:00 06/05/17 20:23 (Synthroid) 150 mcg DAILY@0600 PO 06/04/17 06:00 06/06/17 05:55 (Melatonin) 5 mg HS PO 06/03/17 21:00 06/05/17 20:23 (Lopressor) 25 mg Q12HR PO 06/03/17 21:00 06/06/17 09:30 (Procardia Xl) 60 mg DAILY PO 06/03/17 09:30 06/06/17 09:30 (Desyrel) 50 mg HS PO 06/03/17 21:00 06/05/17 20:23 (SEROquel) 50 mg HS PO 06/03/17 21:00 06/05/17 20:23 (Catapres) 0.1 mg Q6H PRN PO 06/04/17 10:15 (Apresoline) 25 mg Q8HR PO 06/04/17 14:00 06/06/17 06:08 (Benadryl) 50 mg HS PRN PO 06/04/17 21:00 (Atarax) 50 mg Q6H PRN PO 06/04/17 11:30 A/P Assessment and Plan 86yo female with PMHX of HTN and hypothyroidism admitted under [facility] due to dementia with behavioral disturbance. Dementia with behavioral disturbance -Management per psychiatric team -UDS negative Hypertension -patient on Nifedipine XL 60mg daily, Hydralazine 25mg q8hr and Lopressor 25mg BID -started on Clonidine patch due to refusal to take oral meds, discontinued -Patient not agreeable to taking BP meds earlier today but nurses attempting to give them now with lunchtime meal -monitor BP and adjust treatment accordingly Hypothyroidism -TSH elevated at 43, strongly suspect due to patient medication noncompliance -d/w nursing staff, patient refused her Levothyroxine yesterday -recommend continuing on current dose of Levothyroxine 150mcg daily and have TSH level rechecked in 4-6 weeks by PCP and if still elevated adjust dose at that time. KELLY on suspected CKD -suspect secondary to poor oral intake/dehydration, BUN 32 -creatinine improving 1.82 -> 1.53 -UA unremarkable -encourage po intake -avoid nephrotoxic agents -monitor renal indices as indicated DVT prophylaxis -Patient is ambulatory Discussed with patient, nursing staff Alix, RN Gene,Deb PA Jun 06, 2017 12:58
--- NOTE | 2017-06-06 16:36 | HHI.PYPN ---
Subjective Chief Complaint: patient demented and aggressive Remarks Reviewed electronic medical record discussed case with staff. Follow-up was performed in patient's room. Patient was found sleeping in the bed. She awoke to verbal stimuli. Patient confused and disoriented. She states that she is looking for paperwork. Mental Status Examination Appearance: Appropriate Consciousness: Alert Orientation: Person (poorly) Motor Activity: Normal gait Speech: Unremarkable Language: Adequate Fund of Knowledge: Adequate Attention and Concentration: Easily Distracted Memory: Impaired Mood: Other (euthymic to somewhat dysphoric and labile) Affect: Other (good range and intensity) Thought Process & Associations: Disorganized Thought Content: Delusional Hallucination Type: None (patient denies) Delusion Type: Paranoid Suicidal Ideation: No (denies at this time) Suicidal Plan: No Suicidal Intention: No Homicidal Ideation: No (denies at this time) Insight: Poor Results Vitals/IOs Vital Signs Date Time Temp Pulse Resp B/P (MAP) Pulse Ox O2 Delivery O2 Flow Rate FiO2 06/06/17 06:00 97.0 73 16 151/82 (105) 98 06/03/17 07:53 Room Air Intake and Output 06/06/17 06/06/17 06/07/17 08:00 16:00 00:00 Intake Total 2 ml 600 ml Output Total 0 ml Balance 2 ml 600 ml Assessment & Plan Problem List: (1) Dementia in other diseases classified elsewhere with behavioral disturbance ICD Codes: F02.81 - Dementia in other diseases classified elsewhere with behavioral disturbance (2) Alzheimer's dementia with behavioral disturbance ICD Codes: G30.9 - Alzheimer's disease, unspecified; F02.81 - Dementia in other diseases classified elsewhere with behavioral disturbance Status: Resolved Assessment & Plan Estimated LOS: Patient continues to be confused and disoriented. We will continue with current treatment plan. Days Justification for Cont. Inpt. Moving this patient to a lower level of care would result in decompensation. She lacks capacity for self-care. Request HC Surrog/Guard Advoc?: Yes Problem Qualifiers (1) Alzheimer's dementia with behavioral disturbance: Qualified Codes: G30.1 - Alzheimer's disease with late onset; F02.81 - Dementia in other diseases classified elsewhere with behavioral disturbance Kati Hutson Jun 06, 2017 16:36
[2017-06-06 18:17] VITALS: BP 132/60; PULSE 65; RESP 16; TEMP 97.1; O2SAT 96
[2017-06-06] MEDS: traZODone HCL 50 MG TAB PO SCH ×2 (20:56→21:00)
[2017-06-06] MEDS: MELATONIN 5 MG TAB PO SCH ×2 (20:56→21:00)
[2017-06-06] MEDS: QUEtiapine FUMARATE 25 MG TAB PO SCH ×2 (20:56→21:00)
[2017-06-06] MEDS: ATORVASTATIN 10 MG TAB PO SCH ×2 (20:56→21:00)
[2017-06-07] MEDS: hydrALAZINE HCL 25 MG TAB PO SCH ×3 (05:47→22:00)
[2017-06-07] MEDS: LEVOTHYROXINE SODIUM 150 MCG TAB PO SCH (05:47)
[2017-06-07 06:00] VITALS: BP 162/70; PULSE 73; RESP 16; TEMP 97.9; O2SAT 100
[2017-06-07] MEDS: NIFEdipine 60 MG SUSTAINED RELEASE TAB PO SCH (09:00)
[2017-06-07] MEDS: ASPIRIN 81 MG CHEW TAB PO SCH (09:00)
[2017-06-07] MEDS: METOPROLOL TARTRATE 25 MG TAB PO SCH ×2 (09:00→21:00)
--- NOTE | 2017-06-07 09:22 | HHI.PYPN ---
Subjective Chief Complaint: patient demented and aggressive Remarks The patient was seen today for psychiatric reevaluation. The patient was calm, superficially cooperative, with a brighter affect. The patient reports that she feels better, she is eating her breakfast while talking. She reports good mood, she continues to be disoriented in time and place, she denies suicidal and was ideation, she denies visual and auditory hallucinations at the moment. The patient has been refusing medications on and off, but right now she seems to be accenting it. As per nurses the patient has been also paranoid episodically, usually no aggressive or agitated. Review of Systems Except as stated in HPI: all other systems reviewed are Neg Mental Status Examination Appearance: Appropriate Consciousness: Alert Orientation: Person (poorly) Motor Activity: Normal gait Speech: Unremarkable Language: Adequate Fund of Knowledge: Adequate Attention and Concentration: Easily Distracted Memory: Impaired Mood: Other (euthymic to somewhat dysphoric and labile) Affect: Other (good range and intensity) Thought Process & Associations: Disorganized Thought Content: Delusional Hallucination Type: None (patient denies) Delusion Type: Paranoid Suicidal Ideation: No (denies at this time) Suicidal Plan: No Suicidal Intention: No Homicidal Ideation: No (denies at this time) Insight: Poor Results Vitals/IOs Vital Signs Date Time Temp Pulse Resp B/P (MAP) Pulse Ox O2 Delivery O2 Flow Rate FiO2 06/07/17 06:00 97.9 73 16 162/70 (100) 100 06/03/17 07:53 Room Air Assessment & Plan Problem List: (1) Dementia in other diseases classified elsewhere with behavioral disturbance ICD Codes: F02.81 - Dementia in other diseases classified elsewhere with behavioral disturbance Assessment & Plan: Patient responding appropriately to medication. No side effects reported. Compliant with medications on and off. Discussed with nurses the convenience of transferring the patient back to [facility]. Continue current psychotropic regimen (2) Alzheimer's dementia with behavioral disturbance ICD Codes: G30.9 - Alzheimer's disease, unspecified; F02.81 - Dementia in other diseases classified elsewhere with behavioral disturbance Status: Resolved Assessment & Plan Estimated LOS: days Justification for Cont. Inpt. Patient has an elevated risk to decompensate at a lower level of care Request HC Surrog/Guard Advoc?: Yes Problem Qualifiers (1) Alzheimer's dementia with behavioral disturbance: Qualified Codes: G30.1 - Alzheimer's disease with late onset; F02.81 - Dementia in other diseases classified elsewhere with behavioral disturbance Jerman Phillips MD Jun 07, 2017 09:22
--- NOTE | 2017-06-07 09:31 | HHI.PR ---
Subjective Remarks Follow up on patient with HTN, hypothyroidism. Patient seen and examined. Patient appears comfortable sitting on side of bed eating breakfast. She denies any complaints. No headache, vision changes or dizziness. No chest pain or SOB. No N/V or abdominal pain. Discussed with PRATIBHA Edmond, no acute issues noted. Objective Vitals Vital Signs Date Time Temp Pulse Resp B/P (MAP) Pulse Ox O2 Delivery O2 Flow Rate FiO2 06/07/17 06:00 97.9 73 16 162/70 (100) 100 06/06/17 18:17 97.1 65 16 132/60 (84) 96 I/O 06/06/17 06/06/17 06/06/17 06/07/17 06/07/17 06/07/17 07:00 15:00 23:00 07:00 15:00 23:00 Intake Total 2 ml 600 ml 1080 ml Output Total 0 ml Balance 2 ml 600 ml 1080 ml Intake Oral 2 ml 600 ml 1080 ml Output Urine Total 0 ml # Voids 1 Result Diagram: 06/03/17 0040 06/04/17 0845 Objective Remarks GENERAL: This is a well-nourished, well-developed elderly female patient, in no apparent distress. Awake and alert. Sitting on side of bed eating breakfast. SKIN: Warm and dry. No rash. HEAD: Atraumatic. Normocephalic. EYES: Pupils equal round and reactive. Extraocular motions intact. No scleral icterus. ENT: Nose without bleeding, or drainage. Airway patent. MMM. NECK: Trachea midline. Supple CARDIOVASCULAR: Regular rate and rhythm without murmurs, gallops, or rubs. RESPIRATORY: Fair air entry bilaterally. No wheezes, rales, or rhonchi. GASTROINTESTINAL: Abdomen soft, non-tender, nondistended. Positive bowel sounds MUSCULOSKELETAL: Extremities without clubbing, cyanosis, or edema. No obvious deformities. NEUROLOGICAL: Awake and alert. Moves all extremities. No focal neurologic findings appreciated. Normal speech. PSYCHIATRIC: Calm and pleasant. Cooperative. Medications and IVs Current Medications Medications (Trade) Dose Ordered Sig/Mary Route Start Time Stop Time Status Last Admin (Aspirin Chew) 81 mg DAILY PO 06/03/17 09:30 06/06/17 09:30 (Lipitor) 10 mg HS PO 06/03/17 21:00 06/05/17 20:23 (Synthroid) 150 mcg DAILY@0600 PO 06/04/17 06:00 06/07/17 05:47 (Melatonin) 5 mg HS PO 06/03/17 21:00 06/05/17 20:23 (Lopressor) 25 mg Q12HR PO 06/03/17 21:00 06/06/17 09:30 (Procardia Xl) 60 mg DAILY PO 06/03/17 09:30 06/06/17 09:30 (Desyrel) 50 mg HS PO 06/03/17 21:00 06/05/17 20:23 (SEROquel) 50 mg HS PO 06/03/17 21:00 06/05/17 20:23 (Catapres) 0.1 mg Q6H PRN PO 06/04/17 10:15 (Apresoline) 25 mg Q8HR PO 06/04/17 14:00 06/07/17 05:47 (Benadryl) 50 mg HS PRN PO 06/04/17 21:00 (Atarax) 50 mg Q6H PRN PO 06/04/17 11:30 A/P Assessment and Plan 86yo female with PMHX of HTN and hypothyroidism admitted under [facility] due to dementia with behavioral disturbance. Dementia with behavioral disturbance -Management per psychiatric team -UDS negative Hypertension -patient on Nifedipine XL 60mg daily, Hydralazine 25mg q8hr and Lopressor 25mg BID -started on Clonidine patch due to refusal to take oral meds, discontinued -still refusing meds intermittently. Discussed with nursing staff, please keep medicine informed if patient declines morning antihypertensive meds -monitor BP and adjust treatment accordingly Hypothyroidism -TSH elevated at 43, strongly suspect due to patient medication noncompliance -d/w nursing staff, patient refused her Levothyroxine yesterday -recommend continuing on current dose of Levothyroxine 150mcg daily and have TSH level rechecked in 4-6 weeks by PCP and if still elevated adjust dose at that time. KELLY on suspected CKD -suspect secondary to poor oral intake/dehydration, BUN 32 -creatinine improving 1.82 -> 1.53 -UA unremarkable -encourage po intake - patient has been eating well -avoid nephrotoxic agents -monitor renal indices as indicated DVT prophylaxis -Patient is ambulatory Discussed with patient, nursing staff, Dr. Phillips, Mayito, RN Patient has no acute medical issues at this time and can be transferred to regular inpatient psychiatric unit from hospitalist standpoint. Deb Mills Jun 07, 2017 09:31
[2017-06-07 12:17] VITALS: BP 120/59; PULSE 68
[2017-06-07 14:33] VITALS: BP 132/93; PULSE 68
[2017-06-07 17:51] VITALS: BP 143/64; PULSE 69; RESP 18; TEMP 98.4; O2SAT 100
[2017-06-07] MEDS: ATORVASTATIN 10 MG TAB PO SCH (21:00)
[2017-06-07] MEDS: QUEtiapine FUMARATE 25 MG TAB PO SCH (21:00)
[2017-06-07] MEDS: traZODone HCL 50 MG TAB PO SCH (21:00)
[2017-06-07] MEDS: MELATONIN 5 MG TAB PO SCH (21:00)
[2017-06-08 05:48] VITALS: BP 141/65; PULSE 71; RESP 16; TEMP 98.5; O2SAT 100
[2017-06-08] MEDS: hydrALAZINE HCL 25 MG TAB PO SCH ×3 (05:58→21:44)
[2017-06-08] MEDS: LEVOTHYROXINE SODIUM 150 MCG TAB PO SCH (05:59)
[2017-06-08] MEDS: METOPROLOL TARTRATE 25 MG TAB PO SCH ×2 (09:00→21:00)
[2017-06-08] MEDS: NIFEdipine 60 MG SUSTAINED RELEASE TAB PO SCH (09:00)
[2017-06-08] MEDS: ASPIRIN 81 MG CHEW TAB PO SCH (09:00)
--- NOTE | 2017-06-08 15:17 | HHI.PYPN ---
Subjective Chief Complaint: patient demented and aggressive Remarks Patient was seen and case discussed with nursing. Patient is alert and oriented 1. Insight is quite poor. Thought processes disorganized. She has not had any agitated behavior and is behaving well on the unit. Mental Status Examination Appearance: Appropriate Consciousness: Alert Orientation: Person (poorly) Motor Activity: Normal gait Speech: Unremarkable Language: Adequate Fund of Knowledge: Adequate Attention and Concentration: Easily Distracted Memory: Impaired Mood: Other (euthymic to somewhat dysphoric and labile) Affect: Other (good range and intensity) Thought Process & Associations: Disorganized Thought Content: Delusional Hallucination Type: None (patient denies) Delusion Type: Paranoid Suicidal Ideation: No (denies at this time) Suicidal Plan: No Suicidal Intention: No Homicidal Ideation: No (denies at this time) Insight: Poor Results Vitals/IOs Vital Signs Date Time Temp Pulse Resp B/P (MAP) Pulse Ox O2 Delivery O2 Flow Rate FiO2 06/08/17 05:48 98.5 71 16 141/65 (90) 100 Intake and Output 06/08/17 06/08/17 06/09/17 08:00 16:00 00:00 Intake Total 0 ml 120 ml Balance 0 ml 120 ml Assessment & Plan Problem List: (1) Dementia in other diseases classified elsewhere with behavioral disturbance ICD Codes: F02.81 - Dementia in other diseases classified elsewhere with behavioral disturbance (2) Alzheimer's dementia with behavioral disturbance ICD Codes: G30.9 - Alzheimer's disease, unspecified; F02.81 - 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 Inpt. 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
[2017-06-08] MEDS: QUEtiapine FUMARATE 25 MG TAB PO SCH (21:00)
[2017-06-08] MEDS: ATORVASTATIN 10 MG TAB PO SCH (21:00)
[2017-06-08] MEDS: traZODone HCL 50 MG TAB PO SCH (21:00)
[2017-06-08] MEDS: MELATONIN 5 MG TAB PO SCH (21:00)
[2017-06-09] MEDS: hydrALAZINE HCL 25 MG TAB PO SCH ×3 (06:15→22:00)
[2017-06-09] MEDS: LEVOTHYROXINE SODIUM 150 MCG TAB PO SCH (06:16)
[2017-06-09 06:19] VITALS: BP 148/71; PULSE 76; RESP 18; TEMP 98; O2SAT 96
[2017-06-09] MEDS: NIFEdipine 60 MG SUSTAINED RELEASE TAB PO SCH (08:46)
[2017-06-09] MEDS: ASPIRIN 81 MG CHEW TAB PO SCH (08:46)
[2017-06-09] MEDS: METOPROLOL TARTRATE 25 MG TAB PO SCH ×2 (08:47→21:00)
[2017-06-09 13:23] VITALS: BP 138/70; PULSE 67
--- NOTE | 2017-06-09 14:40 | PD.TTN ---
Patient Problems 1. Discharge planning 2. Medication compliance 3. Knowledge deficit 4. Lack of coping skills Progress Toward Goals Provider Present: Dr. rDew Mena Provider Input: 06/09/2017 patient is taking her medication at the level and no further adjustment at this time; 06/02/2017; patient is a new admission will be assess for medication managment and dc needs Nurse(s) Present: RN Nurse(s) Input: 06/09/2017; patient is eating and taking her medication, has somewhat of a suspicious mood 06/02/2017 Patient isolates, require coaching and encouragement with treatment and medication Psychiatric Counselors Present: GHANSHYAM Chirinos Psych Therapist Input: 06/09/2017; [facility] has confirmed that they will accept patient by Friday of this week 06/02/2017; patient is a new admission will be assess for medication managment and dc needs Group Spec/RT/OT/HENSLEY Present: Ac Carpenter OT Group Spec/RT/OT/HENSLEY Input: 06/09/2017 patient attends some groups 06/02/2017; patient is a new admission will be assess for inpatient services Documentation Scribe: Leora Gonzales Jun 09, 2017 14:40
[2017-06-09] MEDS ORDERED: OLANZapine IM 10 MG VIAL IM STA (16:05)
[2017-06-09] MEDS ORDERED: OLANZapine IM 10 MG VIAL IM ONE (16:05)
--- NOTE | 2017-06-09 16:38 | HHI.PYPN ---
Subjective Chief Complaint: patient demented and aggressive Remarks Patient is seen today with forcep, chart reviewed, patient compliant medications , patient discussed with nurse. Patient is showing some increased sundowning type behaviors became more irritable paranoid and obstreperous. This necessitated ordering Zyprexa 5 mg IM to be given. Patient continues diffusely confused and disoriented, was somewhat angry and irritable with me today Review of Systems Except as stated in HPI: all other systems reviewed are Neg Mental Status Examination Appearance: Appropriate Consciousness: Alert Orientation: Person (poorly) Motor Activity: Normal gait Speech: Unremarkable Language: Adequate Fund of Knowledge: Adequate Attention and Concentration: Easily Distracted Memory: Impaired Mood: Other (euthymic to somewhat dysphoric and labile) Affect: Other (good range and intensity) Thought Process & Associations: Disorganized Thought Content: Delusional Hallucination Type: None (patient denies) Delusion Type: Paranoid Suicidal Ideation: No (denies at this time) Suicidal Plan: No Suicidal Intention: No Homicidal Ideation: No (denies at this time) Insight: Poor Results Vitals/IOs Vital Signs Date Time Temp Pulse Resp B/P (MAP) Pulse Ox O2 Delivery O2 Flow Rate FiO2 06/09/17 13:23 67 138/70 (92) 06/09/17 06:19 98.0 18 96 Intake and Output 06/09/17 06/09/17 06/09/17 07:59 15:59 23:59 Intake Total 120 ml 600 ml Balance 120 ml 600 ml Assessment & Plan Problem List: (1) Dementia in other diseases classified elsewhere with behavioral disturbance ICD Codes: F02.81 - Dementia in other diseases classified elsewhere with behavioral disturbance (2) Alzheimer's dementia with behavioral disturbance ICD Codes: G30.9 - Alzheimer's disease, unspecified; F02.81 - Dementia in other diseases classified elsewhere with behavioral disturbance Status: Resolved Assessment & Plan Estimated LOS: days patient continues diffusely confused and disoriented and somewhat feisty today and necessitating a as needed medication Justification for Cont. Inpt. At this time patient would decompensate a place to the lower level of care Discharge Planning To be determined Request HC Surrog/Guard Advoc?: Yes Problem Qualifiers (1) Alzheimer's dementia with behavioral disturbance: Qualified Codes: G30.1 - Alzheimer's disease with late onset; F02.81 - Dementia in other diseases classified elsewhere with behavioral disturbance Dino Mena MD Jun 09, 2017 16:38
[2017-06-09 18:07] VITALS: BP 135/94; PULSE 74; RESP 16; TEMP 98.1; O2SAT 95
[2017-06-09] MEDS: traZODone HCL 50 MG TAB PO SCH (21:00)
[2017-06-09] MEDS: ATORVASTATIN 10 MG TAB PO SCH (21:00)
[2017-06-09] MEDS: MELATONIN 5 MG TAB PO SCH (21:00)
[2017-06-09] MEDS: QUEtiapine FUMARATE 25 MG TAB PO SCH (21:00)
[2017-06-10 05:54] VITALS: BP 139/79; PULSE 74; TEMP 98.6
[2017-06-10] MEDS: LEVOTHYROXINE SODIUM 150 MCG TAB PO SCH (06:27)
[2017-06-10] MEDS: hydrALAZINE HCL 25 MG TAB PO SCH ×3 (06:28→22:00)
[2017-06-10] MEDS: METOPROLOL TARTRATE 25 MG TAB PO SCH ×2 (09:00→21:00)
[2017-06-10] MEDS: NIFEdipine 60 MG SUSTAINED RELEASE TAB PO SCH (09:00)
[2017-06-10] MEDS: ASPIRIN 81 MG CHEW TAB PO SCH (09:00)
--- NOTE | 2017-06-10 12:57 | HHI.PYPN ---
Subjective Chief Complaint: patient demented and aggressive Remarks Patient is seen in day room with nurse Tona, and counselor roommate, patient is sitting quietly in [place]anca chair she is alert diffusely confused, but no behavioral problems. She is pleasant and joking with us. Patient had episode of dyscontrol yesterday evening about 3 to 4:00 in the afternoon sustaining use of Zyprexa 5 mg IM which did calm her. Otherwise patient compliant medication. Will divide at bedtime dose of Seroquel to 25 mg at 2 PM and 25 mg at night as possibility of discharge tomorrow to [facility] Review of Systems Except as stated in HPI: all other systems reviewed are Neg Mental Status Examination Appearance: Appropriate Consciousness: Alert Orientation: Person (poorly) Motor Activity: Normal gait Speech: Unremarkable Language: Adequate Fund of Knowledge: Adequate Attention and Concentration: Easily Distracted Memory: Impaired Mood: Other (euthymic to somewhat dysphoric and labile) Affect: Other (good range and intensity) Thought Process & Associations: Disorganized Thought Content: Delusional Hallucination Type: None (patient denies) Delusion Type: Paranoid Suicidal Ideation: No (denies at this time) Suicidal Plan: No Suicidal Intention: No Homicidal Ideation: No (denies at this time) Insight: Poor Results Vitals/IOs Vital Signs Date Time Temp Pulse Resp B/P (MAP) Pulse Ox O2 Delivery O2 Flow Rate FiO2 06/10/17 05:54 98.6 74 139/79 (99) 06/09/17 18:07 16 95 Assessment & Plan Problem List: (1) Dementia in other diseases classified elsewhere with behavioral disturbance ICD Codes: F02.81 - 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 She medication adjustment above Justification for Cont. Inpt. At this time patient would decompensate if not placed in an appropriate level of care Discharge Planning Possible discharge tomorrow to [place] Request HC Surrog/Guard Advoc?: Yes Problem Qualifiers (1) Alzheimer's dementia with behavioral disturbance: Qualified Codes: G30.1 - Alzheimer's disease with late onset; F02.81 - Dementia in other diseases classified elsewhere with behavioral disturbance Dino Mena MD Jun 10, 2017 12:57
[2017-06-10] MEDS: QUEtiapine FUMARATE 25 MG TAB PO SCH ×2 (13:40→21:00)
[2017-06-10 18:07] VITALS: BP 177/70; PULSE 99; RESP 18; TEMP 97.1; O2SAT 98
[2017-06-10] MEDS: traZODone HCL 50 MG TAB PO SCH (21:00)
[2017-06-10] MEDS: MELATONIN 5 MG TAB PO SCH (21:00)
[2017-06-10] MEDS: ATORVASTATIN 10 MG TAB PO SCH (21:00)
[2017-06-11 05:00] VITALS: BP 91/51; PULSE 94; RESP 18; TEMP 98.9; O2SAT 99
[2017-06-11] MEDS: hydrALAZINE HCL 25 MG TAB PO SCH (06:00)
[2017-06-11] MEDS: LEVOTHYROXINE SODIUM 150 MCG TAB PO SCH (06:19)
[2017-06-11] MEDS: METOPROLOL TARTRATE 25 MG TAB PO SCH (08:33)
[2017-06-11] MEDS: NIFEdipine 60 MG SUSTAINED RELEASE TAB PO SCH (08:33)
[2017-06-11] MEDS: ASPIRIN 81 MG CHEW TAB PO SCH (08:33)
[2017-06-11] MEDS ORDERED: cloNIDine HCL 0.1 MG/24 HR PATCH T-DERMAL SCH (09:00)
[2017-06-11] MEDS ORDERED: ASPI81 PO (11:03)
[2017-06-11] MEDS ORDERED: SERO25TA PO (11:03)
[2017-06-11] MEDS ORDERED: LIPI10TA PO (11:03)
[2017-06-11] MEDS ORDERED: LEVO.15 PO (11:03)
[2017-06-11] MEDS ORDERED: METO25TA3 PO (11:03)
[2017-06-11] MEDS ORDERED: MELA5 PO (11:03)
[2017-06-11] MEDS ORDERED: NIFE60TA8 PO (11:03)
[2017-06-11] MEDS ORDERED: TRAZ50TA12 PO (11:03)
--- NOTE | 2017-06-11 11:08 | HHI.DS ---
Psychiatry Discharge Summary Inpatient Psychiatric care?: Yes Advance Directive: No Reason Not Provided: info given unable to sign has Critical access hospital AdvanceDirective: No Health Care Proxy: No Admission Admission Date Jun 03, 2017 at 08:55 Admission Diagnosis: (1) Alzheimer's dementia with behavioral disturbance ICD Code: G30.9 - Alzheimer's disease, unspecified; F02.81 - Dementia in other diseases classified elsewhere with behavioral disturbance (2) Dementia in other diseases classified elsewhere with behavioral disturbance ICD Code: F02.81 - Dementia in other diseases classified elsewhere with behavioral disturbance Brief History Patient is an 86-year-old Afro-[place] female who comes here under Paul act signed by Hank Malik LCSW dated 06/02/17 at 9:30 PM that document reviewed. It is stating patient was reportedly not slept in 48 hours increasingly agitated and disoriented to place situation and time. Has attempted to interfere with facility staff providing care to other residents and threatening to shoot staff and slammed walker down in the threatening manner toward staff. Rambling incoherent speech refuses to take medication to help her, Ativan, Haldol, Seroquel. Refuses voluntary hospitalization delusional statements about poisoned food. Patient seen screened in the emergency department urine toxicology negative blood alcohol level negative. Patient seen in her room with nurse Zuri, she is an alert Afro-[place]ese female appears stated age she is oriented only to person she is diffusely confused as to place time and situation. 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 She also thinks she is in [facility]. She states her is still alive. She does denies suicidality homicidality voices or visions. She denies any alcohol or drug use. This is patient's third admission to [facility] psychiatric department since middle of January 2017. This time patient does meet criteria for further involuntary psychiatric hospitalization of the Paul act I'll do first opinion request second opinion. I feel she does not have capacity thus I'll ask for healthcare surrogate and guardian advocate. We'll of hospitalist consult will us. We will also have OT and PT assessments. We need to talk with patient's family to discuss placement issues medication and treatment. The patient is a 86 years old -[place] woman, she has a psychiatric history of dementia with behavior disturbances, paranoia, agitation and aggressive behavior, multiple psychiatric admissions, who comes on the Paul act due to increasingly agitation, hostility and aggressive behavior at her facility. The patient was consulted to me for second opinion. The patient is very disorganized, unable to answer any of my questions. She continues mumbling , looking to another side, verbally hostile, irritable. As per nurses, the patient has been episodically agitated, very difficult to handle in the unit. Tobacco Use In Past 30 Days: No Tobacco Past 30 Days Alcohol Use: Never Hospital Course Patient's hospital course was uneventful, she was overall pleasantly confused and disoriented though she did show some behaviors towards late afternoon into the evening. Adjust of medications have helped soften those behaviors. Otherwise she is calm and cooperative somewhat chatty and at times somewhat intrusive. She is compliant with medications. She does deny suicidality and homicidality voices or visions. There is a bed available for her today is her spouse patient be discharged today that facility Rx 1 month follow-up services through that facility Results Blood Pressure 91 / 51 Vital Signs Date Time Temp Pulse Resp B/P (MAP) Pulse Ox O2 Delivery O2 Flow Rate FiO2 06/11/17 05:00 98.9 94 18 91/51 (64) 99 Laboratory Results Test 06/04/17 08:45 Cholesterol Level 175 MG/DL (120-200) HDL Cholesterol 104.0 MG/DL (40.0-60.0) Hemoglobin A1c 5.2 % (4.3-6.0) LDL Cholesterol 62 MG/DL (0-99) Triglycerides Level 44 MG/DL (42-150) Summary of Procedures None done Pending results at discharge: No Medications # of Antipsychotic meds at D/C: 1 Approp Antipsych med options 1 - Minimum of three failed multiple trials of monotherapy. 2 - Documented plan to taper to monotherapy due to previous use of multiple meds OR cross-taper in progress at D/C. 3 - Documentation of augmentation of Clozapine. 4 - Justification other than those listed in allowable values 1-3, document here : Discharge Discharge Date: Jun 11, 2017 Discharge Diagnosis: (1) Dementia in other diseases classified elsewhere with behavioral disturbance Diagnosis: Principal ICD Code: F02.81 - Dementia in other diseases classified elsewhere with behavioral disturbance (2) Alzheimer's dementia with behavioral disturbance Diagnosis: Principal ICD Code: G30.9 - Alzheimer's disease, unspecified; F02.81 - Dementia in other diseases classified elsewhere with behavioral disturbance Status: Resolved Pt Condition on Discharge: Stable Discharge Disposition: [facility] Discharge Instructions Diet Instructions: As Tolerated, No Restrictions Activities you can perform: Regular-No Restrictions Scheduled Appointment: Follow-up services through [facility] Discharge Time > 30 minutes Mental Status Examination Appearance: Appropriate Consciousness: Alert Orientation: Person (poorly) Motor Activity: Normal gait Speech: Unremarkable Language: Adequate Fund of Knowledge: Adequate Attention and Concentration: Easily Distracted Memory: Impaired Mood: Other (euthymic to somewhat dysphoric and labile) Affect: Other (good range and intensity) Thought Process & Associations: Disorganized Thought Content: Delusional Hallucination Type: None (patient denies) Delusion Type: Paranoid Suicidal Ideation: No (denies at this time) Suicidal Plan: No Suicidal Intention: No Homicidal Ideation: No (denies at this time) Insight: Poor Discharge/Advance Care Plan Health Problems: (1) Dementia in other diseases classified elsewhere with behavioral disturbance (2) Alzheimer's dementia with behavioral disturbance Goals to promote your health * To prevent worsening of your condition and complications * To maintain your health at the optimal level Directions to meet your goals Take your medications as prescribed Follow your dietary instruction Follow activity as directed Keep your appointments as scheduled Take your immunizations and boosters as scheduled If your symptoms worsen call your PCP, if no PCP go to Urgent Care Center or Emergency Room For 16/09 questions related to your inpatient stay or results of tests pending at discharge, please contact Dr. Dino Mena at Smoking is Dangerous to Your Health. Avoid second hand smoking Problem Qualifiers (1) Alzheimer's dementia with behavioral disturbance: Qualified Codes: G30.1 - Alzheimer's disease with late onset; F02.81 - Dementia in other diseases classified elsewhere with behavioral disturbance Dino Mena MD Jun 11, 2017 11:08
== END 2017-06-11 11:25 | DRG 57 ==
LOC: NEPD 00:09 → NEDA 08:55 → H4EA 11:05 → H250 06-07 15:14
PROVIDERS: ADMIT Psychiatry & Neurology Psychiatry; ATTEND Psychiatry & Neurology Psychiatry
DX: G30.1 Alzheimer's disease with late onset (principal); N17.9 Acute kidney failure, unspecified; F05 Delirium due to known physiological condition; F02.81 Dementia in other diseases classified elsewhere, unspecified severity, with behavioral disturbance; F32.9 Major depressive disorder, single episode, unspecified; E03.9 Hypothyroidism, unspecified; I12.9 Hypertensive chronic kidney disease with stage 1 through stage 4 chronic kidney disease, or unspecified chronic kidney disease; N18.9 Chronic kidney disease, unspecified; Z88.1 Allergy status to other antibiotic agents; Z88.5 Allergy status to narcotic agent; Z88.6 Allergy status to analgesic agent; Z91.14 Patient's other noncompliance with medication regimen
CPT/HCPCS: 80048; 80053; 80061; 80307; 81001; 83036; 84443; 85025; 96372; J1630; Q0163